=== PATIENT | male | born 1990 | race Caucasian/White ===

== ENCOUNTER 2018-03-18 17:01 | Emergency (ER) | payer BC ==
[2018-03-18 17:47] VITALS: BP 160/117; PULSE 80; TEMP 98.7; BMI 20.7
[2018-03-18] MEDS ORDERED: diphenhydrAMINE HCL 25 MG CAPSULE (FP) PO ONE (18:37)
[2018-03-18] MEDS ORDERED: diphenhydrAMINE HCL 50 MG CAPSULE ONE (18:39)
--- NOTE | 2018-03-18 18:57 | PDOC ---
History of Present Illness - General Chief Complaint: Bite Stated Complaint: BUG BITE - History of Present Illness Initial Comments: Casey Lizarraga is a 27yo man with a history of HTN, chronic kidney problems, and possible lupus presents today wtih erythema and swelling to the distal right forearm since yesterday. He reports that the swelling started yesterday, and the swelling was originally much worse. Yesterday it looked like "a golf ball" under his skin. The swelling improved focally, but today he noticed diffuse erythema and swelling on the ulnar side of his distal right forearm. He applied some hydrocortisone cream that his mom gave him, but he was worried that the redness was spreading and so came for evaluation. Casey reports that he spent the weekend sleeping in a "trailer" in [place]. He is not aware of any bug bites that occurred over the weekend, and he was not out in the [place]. He does not have any new exposures that he is aware of or new medications. He does not believe that he ever had a scratch or injury in the area. Casey denies any recent fevers, chills, headache, chest pain, palpitations, or other associated symptoms. Past History - Past Medical History Allergies/Adverse Reactions: Allergies Allergy/AdvReac Type Severity Reaction Status Date / Time banana Allergy Severe Verified 03/18/18 17:47 Home Medications: Ambulatory Orders Nifedipine [Procardia Xl] 90 mg PO DAILY 03/08/18 Triamterene/Hydrochlorothiazid [Triamterene-Hctz 37.5-25 mg Cp] 1 each PO DAILY 03/08/18 COPD: No Disorders: Yes (KIDNEY DYSFUNCTION) HTN: Yes - Suicide/Smoking/Psychosocial Hx Smoking Status: No Smoking History: Never smoked Have you smoked in the past 12 months: No Number of Cigarettes Smoked Daily: 0 Hx Alcohol Use: No Drug/Substance Use Hx: No Substance Use Type: None Hx Substance Use Treatment: No Review of Systems - Review of Systems Comments:: General: No fevers, no chills, no weight or appetite change, no malaise HEENT: No changes in vision, no changes in hearing, no congestion, no sore throat CV: No chest pain, no palpitations, no LE edema Pulm: No SOB, no cough, no wheezing GI: No nausea or vomiting, no change in bowel habits, no melena : No frequency, no urgency, no dysuria Musc: No back pain, no joint swelling, no recent injury Skin: See HPI Endo: No excessive thirst, no heat/cold intolerance Heme: No unusual bruising or bleeding, no swollen glands Neuro: No syncope, no numbness/tingling, no focal weakness Vasc: No claudication Psych: No recent change in mood, no SI or HI *Physical Exam - Vital Signs Last Vital Signs Temp Pulse Resp BP Pulse Ox 98.7 F 80 18 160/117 97 03/18/18 17:45 03/18/18 17:45 03/18/18 17:45 03/18/18 17:45 03/18/18 17:45 - Physical Exam Comments: General: Comfortable, no acute distress HEENT: PERRL, EOMI, MMM, voice normal, normal neck ROM, no LAD Cards: RRR, no murmur appreciated Pulm: Comfortable on room air, clear to auscultation bilaterally Abd: Soft, nontender, nondistended Ext: RUE with erythema and diffuse swelling on distal forearm. Nontender to palpation. Quarter sized area of induration at anterior wrist. No fluctuance. No visible puncture wound or other injury. Vasc: Extremities WWP. Palpable radial and pedal pulses bilaterally Neuro: A&Ox3, CN grossly intact, normal speech, motor/sensory grossly intact and symmetric Psych: Mood appropriate to situation ED Treatment Course - Medications Given in the ED: ED Medications Discontinued Medications Generic Name Dose Route Start Last Admin Trade Name Freq PRN Reason Stop Dose Admin Diphenhydramine HCl 50 mg 03/18/18 18:37 03/18/18 18:40 Benadryl - PO 03/18/18 18:38 50 mg ONCE ONE Administration Medical Decision Making - Medical Decision Making Casey Troy is a 27yo man with a PMH of kidney disease, HTN, possible lupus who presents with erythema, edema, pruritus, and induration to the distal right forearm since yesterday. - No fever, tenderness, warmth, discharge, or break in the skin that suggest infection - Local induration but no fluctuance that suggest fluid collection - Appearance consistent with allergic reaction, especially since the area is itchy and improved with application of cortisone. - Will give 50mg diphehydramine for itching 03/18/18 19:02 - Patient is requesting to leave; he reports that he just wanted to make sure the area was not infected - Recommend follow up with his PMD within the next week - Discussed continued use of benadryl for itching and return precautions. - Marked area of erythema; discussed with Mr Lizarraga that he needs to see his PMD if the area of erythema continues to spread Discussed with Dr Figueroa. *DC/Admit/Observation/Transfer Diagnosis at time of Disposition: Allergic reaction - Discharge Dispostion Disposition: HOME Condition at time of disposition: Good Decision to Admit order: No - Referrals - Patient Instructions Printed Discharge Instructions: DI for Atopic Dermatitis - Adult, DI for Contact Dermatitis Additional Instructions: Discharge Instrutions: - You were seen in the ED for redness and swelling to your right forearm - This is most consistent with an allergic reaction. You may wish to apply hydrocortisone ointment twice daily for itching. You may also take 25-50mg of diphenhydramine (benadryl) or another antihistamine for itching and irritation of the area - Follow up with your primary physician within the next week - Seek medical care if you have worsening of the redness, swelling, start to have pain in the area, drainage, or you have red streaks up your arm, especially if you have a fever to 101F or shaking chills. - Post Discharge Activity
--- NOTE | 2018-03-18 19:06 | PDOC ---
Attending Attestation - HPI HPI: 03/18/18 19:11 The patient is a 27 year old male with a past medical history of hypertension, lupus, and chronic kidney problems who presents to the emergency department for evaluation of anterior right forearm itching, swelling, and redness. The patient reports redness of volar aspect of distal forearm since yesterday morning. Patient describes the rash as a golf ball under his skin in the middle of his wrist which has gone down, but still has persistent itchiness. He states it was worse yesterday and has improved after applying cortisone cream this morning. Denies any associated pain. The patient notes he slept two nights in a trailer in [facility] over the weekend, and notes there was no swelling on Sunday. The patient state he is unaware of any insect bites, but it can be a possibility. Denies taking oral medication for the pain. Denies sick contact, chest pain, shortness of breath, headache, and dizziness. Denies fever, chills, and any bowel/urinary symptoms. - Physicial Exam PE: GENERAL: Well-appearing, well-nourished. No apparent distress. HEENT: No enlarged nodes. Normocephalic, atraumatic. PERRL, EOM intact. CARDIOVASCULAR: Normal S1, S2. Regular rate and rhythm. PULMONARY: Clear to auscultation bilaterally. ABDOMEN: Soft, non-distended, non-tender. EXTREMITIES: (+)Mild erythema of the volar aspect of the right wrist and distal forearm. Non tender to palpation. No induration. Minimal warmth. No extension to the elbow or axilla. Normal ROM in all four extremities. No gross deformities. SKIN: Warm, dry. No rash NEUROLOGICAL: No focal neurological deficits. - Medical Decision Making Impression Insect bite with significant local reaction. The patient is a 27 year old male with a past medical history of hypertension, lupus, and chronic kidney problems who presents to the emergency department for evaluation of volar aspect of distal right forearm itching, swelling, and redness. Plan: Cool compresses Benadryl If erythema processes, return for recheck and consider possibility for early infection. <Falguni Roberson - Last Filed: 03/18/18 19:11> - Resident Resident Name: Radha Andujar - ED Attending Attestation I have performed the following: I have examined & evaluated the patient, The case was reviewed & discussed with the resident, I agree w/resident's findings & plan, Exceptions are as noted - Medical Decision Making Patient has the suggestion of an insect bite with a pinpoint punctum surrounded by minimal erythema. There is no significant warmth or tenderness. There is no sign of infection at present. This appears to be an ALLERGIC reaction. The extent of the erythema was marked and the patient was instructed to observe for any increase in size, and return to the emergency room if it continues to enlarge, becomes more warm, red, or painful. Or if he develops any systemic symptoms such as fever, joint or muscle aches, or headache. Fully alert, in no significant pain or other distress at discharge with his family to follow-up as directed <Jeferson Figueroa - Last Filed: 03/25/18 07:25> Attestations - Attestations Documentation prepared by Falguni Roberson, acting as medical transcription for Jeferson Figueroa MD. <Falguni Roberson - Last Filed: 03/18/18 19:11>
== END 2018-03-18 19:17 | disposition home or self-care (01) ==
LOC: FER 17:01
DX: T78.40XA Allergy, unspecified, initial encounter (principal); I10 Essential (primary) hypertension
CPT/HCPCS: 99281-25

== ENCOUNTER 2018-05-02 00:42 | Emergency (ER) | payer BC ==
[2018-05-02 00:48] VITALS: BMI 22.5
--- NOTE | 2018-05-02 02:06 | PDOC ---
History of Present Illness - General Chief Complaint: Edema Stated Complaint: GROIN SWELLING Time Seen by Provider: 05/02/18 01:48 History Source: Patient - History of Present Illness Initial Comments: 05/02/18 03:20 27 year old male with left testicular pain and swelling x 1 week. patient reports that he had a sexual encounter with his ex girlfriend 2 weeks ago unsure of exposure to STDs. PMHX: Hypertension, Lupus? Past History - Past Medical History Allergies/Adverse Reactions: Allergies Allergy/AdvReac Type Severity Reaction Status Date / Time banana Allergy Severe Verified 05/02/18 02:21 Home Medications: Ambulatory Orders Nifedipine [Procardia Xl] 90 mg PO DAILY 03/08/18 Triamterene/Hydrochlorothiazid [Triamterene-Hctz 37.5-25 mg Cp] 1 each PO DAILY 03/08/18 Doxycycline Monohydrate [Mondoxyne Nl] 100 mg PO BID #14 capsule 05/02/18 COPD: No Disorders: Yes (KIDNEY DYSFUNCTION) HTN: Yes - Suicide/Smoking/Psychosocial Hx Smoking Status: No Smoking History: Never smoked Have you smoked in the past 12 months: No Number of Cigarettes Smoked Daily: 0 Hx Alcohol Use: No Drug/Substance Use Hx: No Substance Use Type: None Hx Substance Use Treatment: No Review of Systems - Review of Systems Able to Perform ROS?: Yes Is the patient limited Macedonian proficient: No : Yes: Testicular Swelling, Testicular Pain *Physical Exam - Vital Signs Last Vital Signs Temp Pulse Resp BP Pulse Ox 98.4 F 80 18 195/140 H 98 05/02/18 00:44 05/02/18 00:44 05/02/18 00:44 05/02/18 00:44 05/02/18 00:44 - Physical Exam General Appearance: Yes: Appropriately Dressed Male Genitalia: positive: testicular tenderness (left, slight left testicular edema.) Integumentary: positive: Normal Color, Dry, Warm Neurologic: positive: Fully Oriented, Alert, Normal Mood/Affect *DC/Admit/Observation/Transfer Diagnosis at time of Disposition: Acute epididymitis - Discharge Dispostion Disposition: HOME Condition at time of disposition: Fair - Prescriptions Prescriptions: Doxycycline Monohydrate [Mondoxyne Nl] 100 mg PO BID #14 capsule - Referrals Referrals: Tima Brown MD., [Staff Physician] - Call tomorrow - Patient Instructions Printed Discharge Instructions: DI for Epididymitis Additional Instructions: take doxycycline as prescribed, drink plenty of fluids follow up with a urologist as soon as possible. - Post Discharge Activity Forms/Work/School Notes: Back to Work
[2018-05-02 02:22] VITALS: BP 195/96; PULSE 85; TEMP 98.2
[2018-05-02] MEDS ORDERED: AZITHROMYCIN 1 GM PACKET PO ONE (02:49)
[2018-05-02] MEDS ORDERED: AZITHROMYCIN 250 MG TABLET PO ONE ×2 (03:00)
[2018-05-02 03:07] LABS: URINE APPEARANCE CLEAR; URINE BILIRUBIN NEGATIVE (<2.0 mg/dL); URINE COLOR COLORLESS; URINE GLUCOSE (UA) NEGATIVE (NEGATIVE); URINE KETONE NEGATIVE (NEGATIVE); URINE LEUK ESTERASE NEGATIVE (NEGATIVE); URINE NITRITE NEGATIVE (NEGATIVE); URINE PROTEIN 2+ (NEGATIVE); URINE UROBILINOGEN NEGATIVE mg/dL (0.2-1.0)
[2018-05-02 03:10] LABS: URINE MUCUS RARE
[2018-05-02] MEDS ORDERED: AZITHROMYCIN 250 MG TABLET ONE (03:21)
[2018-05-02] MEDS ORDERED: cefTRIAXone SODIUM 1 GM VIAL ONE (03:21)
== END 2018-05-02 03:50 | disposition home or self-care (01) ==
LOC: JER 00:42
DX: N45.1 Epididymitis (principal); I10 Essential (primary) hypertension
CPT/HCPCS: 36415; 76870-TC; 81003; 81015; 87086; 87491; 87591; 99281-25

== ENCOUNTER 2018-05-23 14:59 | Inpatient (IN) | payer BC ==
--- NOTE | 2018-05-23 15:11 | PDOC ---
Rapid Medical Evaluation Chief Complaint: Blood Pressure Problem Time Seen by Provider: 05/23/18 15:07 Medical Evaluation: Allergies Allergy/AdvReac Type Severity Reaction Status Date / Time banana Allergy Severe Verified 05/02/18 02:21 05/23/18 15:07 I have performed a brief in person evaluation of this patient. The patient presents with a CC of: "My doctor wanted me to come here because of my blood pressure." HPI: Pt states he has a hx of HTN and is on a CCB. He states that he has not been taking his medication on a regular basis. At present he denies symptoms however admits over the past month of occasional HAs. Pain 0/10. PE: Skin: clear Lungs: Clear Heart: RRR Abd: No pain upon palpation MS: Moves all extremities without difficulty. Psych: Age appropriate. I have ordered the following: nothing at this time. The patient will proceed to the ED for further evaluation. Discharge Disposition - Diagnosis Hypertension Qualifiers: Hypertension type: unspecified Qualified Code(s): I10 - Essential (primary) hypertension - Referrals - Patient Instructions - Post Discharge Activity
--- NOTE | 2018-05-23 15:21 | PDOC ---
History of Present Illness - General Chief Complaint: Blood Pressure Problem Stated Complaint: SENT BY PCP Time Seen by Provider: 05/23/18 15:07 - History of Present Illness Initial Comments: The patient is a 27M w/ a history of lupus and raynaud's who presents for evaluation of HTN from Dr. Caldera's office. The patient reportedly takes Nifedipine 90mg PO daily for HTN, however, it is generally uncontrolled per the patient. He also admits to intermittent non-compliance. The patient endorses an associated BRADFORD, however he endorses intermittent BRADFORD for 1 month. This BRADFORD feels similar to previous. He denies recent fevers/chills, chest pain, SOB, abdominal pain, back pain, or changes in vision or sensation. Cardiology: Dr. Caldera 05/23/18 15:20 Past History - Past Medical History Allergies/Adverse Reactions: Allergies Allergy/AdvReac Type Severity Reaction Status Date / Time banana Allergy Severe Verified 05/23/18 15:08 Home Medications: Ambulatory Orders Nifedipine [Procardia Xl] 90 mg PO DAILY 03/08/18 COPD: No CHF: No DVT: No Disorders: Yes (KIDNEY DYSFUNCTION) HTN: Yes - Suicide/Smoking/Psychosocial Hx Smoking Status: No Smoking History: Never smoked Have you smoked in the past 12 months: No Number of Cigarettes Smoked Daily: 0 Information on smoking cessation initiated: No Hx Alcohol Use: No Drug/Substance Use Hx: No Substance Use Type: None Hx Substance Use Treatment: No Review of Systems - Review of Systems Able to Perform ROS?: Yes Comments:: GENERAL/CONSTITUTIONAL: No fever or chills. No weakness HEAD, EYES, EARS, NOSE AND THROAT: No change in vision. No ear pain or discharge. No sore throat CARDIOVASCULAR: No chest pain or shortness of breath RESPIRATORY: No cough, wheezing, or hemoptysis GASTROINTESTINAL: No nausea, vomiting, diarrhea or constipation._ GENITOURINARY: No dysuria, frequency, or change in urination._ MUSCULOSKELETAL: No joint or muscle swelling or pain. No neck or back pain._ SKIN: No rash_ NEUROLOGIC: No headache, vertigo, loss of consciousness, or change in strength/ sensation._ ENDOCRINE: No increased thirst. No abnormal weight change_ HEMATOLOGIC/LYMPHATIC: No anemia, easy bleeding, or history of blood clots._ ALLERGIC/IMMUNOLOGIC: No hives or skin allergy._ 05/23/18 15:21 05/23/18 16:01 Is the patient limited Spanish proficient: No *Physical Exam - Vital Signs Last Vital Signs Temp Pulse Resp BP Pulse Ox 98.1 F 84 16 192/126 H 99 05/23/18 15:08 05/23/18 15:08 05/23/18 15:08 05/23/18 15:08 05/23/18 15:08 - Physical Exam Comments: GENERAL: Awake, alert, and fully oriented, in no acute distress HEAD: No signs of trauma, normocephalic, atraumatic EYES: PERRLA, EOMI, sclera anicteric, conjunctiva clear ENT: Hearing grossly normal, nares patent, oropharynx clear without exudates. Moist mucosa LUNGS: No distress, speaks full sentences, clear to auscultation bilaterally HEART: Regular rate and rhythm, normal S1 and S2, no murmurs, rubs or gallops, peripheral pulses normal and equal bilaterally ABDOMEN: Soft, nontender, normoactive bowel sounds. No guarding, no rebound EXTREMITIES : Normal inspection, Normal range of motion, no edema. No clubbing or cyanosis NEUROLOGICAL: Cranial nerves II through XII grossly intact. Normal speech, normal gait, no focal sensorimotor deficits SKIN: Warm, Dry, normal turgor, no rashes or lesions noted 05/23/18 15:21 ED Treatment Course - LABORATORY CBC & Chemistry Diagram: 05/23/18 16:01 05/23/18 16:01 Medical Decision Making - Medical Decision Making The patient is a 27M who presents from clinic for evaluation of hypertensive urgency Patient on Nifedipine 90mg PO daily for HTN Cardiology: Dr. Caldear CMP, CBC, Cardiac profile, UA ECG CXR Hydralazine 10mg IV once for HTN 05/23/18 15:21 Hydralazine 10mg IV once for HTN BP 180s/140s Cr 4.0 (from 1s in November) Cardiology and Nephrology consulted -Will initiate Nitro gtt for HTN and f/u w/ Dr. Caldera in an hour Plan for admission ICU v Tele -ICU w/o beds at this time w/ 4 pending 05/23/18 17:22 Initial MAP 165, Goal MAP 123 Nitro gtt at 6mcg/min, MAP 133 Dispo: Admit to tele 05/23/18 18:38 *DC/Admit/Observation/Transfer Diagnosis at time of Disposition: Hypertensive crisis Hypertension Qualifiers: Hypertension type: unspecified Qualified Code(s): I10 - Essential (primary) hypertension Raynaud phenomenon Qualifiers: Raynaud?s-associated gangrene presence: without gangrene Qualified Code(s): I73.00 - Raynaud's syndrome without gangrene SLE (systemic lupus erythematosus) Qualifiers: Systemic lupus erythematosus type: unspecified Systemic lupus erythematosus organ involvement: unspecified Qualified Code(s): M32.9 - Systemic lupus erythematosus, unspecified - Discharge Dispostion Condition at time of disposition: Guarded Decision to Admit order: Yes - Referrals - Patient Instructions - Post Discharge Activity
[2018-05-23] MEDS ORDERED: hydrALAZINE HCL 20 MG/ML VIAL IVPUSH ONE ×3 (16:01→16:45)
[2018-05-23 16:14] LABS: BASO % 0.8 % (0-2.0); HEMATOCRIT 39.1 % (35.4-49); HEMOGLOBIN 13.2 GM/dL (11.7-16.9); LYMPH % 16.2 % (8-40); MCH 29.2 pg (25.7-33.7); MCHC 33.9 g/dl (32.0-35.9); MEAN CELL VOLUME 86.2 fl (80-96); MEAN PLT VOLUME 9.1 fl (7.5-11.1); MONO % 7.2 % (3.8-10.2); NEUT % 66.8 % (42.8-82.8); PLATELET COUNT 225 K/MM3 (134-434); RBC 4.54 M/mm3 (4.00-5.60); RDW 14.3 % (11.9-15.9); WHITE BLOOD COUNT 7.9 K/mm3 (4.0-10.0)
[2018-05-23] MEDS ORDERED: hydrALAZINE HCL 20 MG/ML VIAL ONE ×2 (16:24→16:43)
--- NOTE | 2018-05-23 16:38 | CON.CARD ---
Cardiology Consult (text) - Consultation Consultation Note: Cardiology Clinical summary Mr. Lizarraga was seen today in office for an initial CV evaluation. Pertinent PMHX : Possible SLE, CKD s/p biopsy at [facility] (non-diagostic), Chronic HTN w/ medication non-adherence and Raynaud's phenomenon. Came to office with several issues includin. Severely uncontrolled HTN for about one week with home readings 170-180/120 2. Posterior headaches daily for about one month 3. A Transient episode of substernal chest pain/ sharp that lasted a few seconds yesterday with no radiation or associated sx 4. Sharp right leg pain for 2 weeks. His history of CKD and chronic HTN was confirmed by his fare enforcement officer, Dr. Wilson who confirmed his last creatinine in November was around 1.6. His medications should be: Losartan 50mg (not taking), Nifedipine ER 90mg ( taking sometimes) and Diazide- unknown dose (not taking). His ECG showed NSR with LVH and strain pattern. His physical exam was sig for BP 170/120 b/l I referred him to ER for further w/u and Rx hypertensive urgency. Plan: 1. Stat labs for renal fxn 2. Echo 3. Cardiac enzymes 4. Telemetry 5. BP control 6. Renal consult
--- NOTE | 2018-05-23 16:46 | PDOC ---
Attending Attestation - Resident Resident Name: Jonathan Bhakta - ED Attending Attestation I have performed the following: I have examined & evaluated the patient, The case was reviewed & discussed with the resident, I agree w/resident's findings & plan, Exceptions are as noted - HPI HPI: 05/23/18 17:12 Casey is a 27 yo M who presents to the ER from Dr Caldera's office Briefly, he has a h/o Lupus, Renal Insufficiency, Raynauds, HTN on Procardia and Losartan Pt has had severely uncontrolled HTN for approximately 1 week (180s/120s), headaches (daily, he awakens with headaches daily), Chest Pain which he describes as sharp, no radiation, no diaphoresis or nausea, lasting a few seconds and self resolving - Physicial Exam PE: 05/23/18 17:11 GENERAL: Pt is A &O x 3, no distress LUNGS: Clear to auscultation bilaterally, no wheezes, rales or rhonchi. HEART: Regular rate and rhythm without murmurs, rubs or gallops. ABDOMEN: Normoactive bowel sounds, soft, nontender, no masses, no rebound, no guarding. NEUROLOGICAL: Normal motor function, normal sensation. - Critical Care Time Total Critical Care Time: 60 Critical Care Statement: The care of this patient involved high complexity decision making to prevent further life threatening deterioration of the patient 's condition and/or to evaluate & treat vital organ system(s) failure or risk of failure. - Medical Decision Making 05/23/18 16:59 27 yo M hypertensive urgency EKG: SR rate of 73 bpm, axis nml, intervals abn - pr: 138ms, QRS:98ms, QTc: 506ms (prolonged), No st elevation or depression, t wave inversions noted inferiorly and laterally (similar to prior EKG) Laboratory Tests 03/08/18 03/08/18 05/23/18 20:00 20:00 16:00 WBC 11.5 H Hgb 13.5 Hct 40.2 Plt Count 353 Sodium 133 L Potassium 3.1 L Chloride 98 Carbon Dioxide 26 Anion Gap 9 BUN 39 H Creatinine 2.6 H Random Glucose 90 Creatine Kinase Troponin I Urine Blood 1+ H Urine Nitrite Negative Ur Leukocyte Esterase Negative 05/23/18 05/23/18 16:01 16:01 WBC 7.9 Hgb 13.2 Hct 39.1 Plt Count 225 D Sodium 138 Potassium 3.7 Chloride 99 Carbon Dioxide 29 Anion Gap 10 BUN 41 H Creatinine 4.0 H Random Glucose 86 Creatine Kinase 716 H Troponin I 0.13 H Urine Blood Urine Nitrite Ur Leukocyte Esterase 05/23/18 17:00 Labs reveal: Acute kidney injury Demand ischemia, elevated trop Mild leukocytosis Will admit Will start nitro drip Will give ASA 05/23/18 17:18
[2018-05-23 16:47] LABS: URINE APPEARANCE CLEAR; URINE BILIRUBIN NEGATIVE (<2.0 mg/dL); URINE COLOR LTYELLOW; URINE GLUCOSE (UA) NEGATIVE (NEGATIVE); URINE KETONE NEGATIVE (NEGATIVE); URINE LEUK ESTERASE NEGATIVE (NEGATIVE); URINE NITRITE NEGATIVE (NEGATIVE); URINE PROTEIN 3+ (NEGATIVE); URINE UROBILINOGEN NEGATIVE mg/dL (0.2-1.0)
[2018-05-23 16:56] LABS: ALBUMIN 3.5 g/dl (3.4-5.0); ALK PHOS 97 U/L (45-117); ANION GAP 10 MMOL/L (8-16); BILIRUBIN,TOTAL 0.4 mg/dL (0.2-1); BLOOD UREA NITROGEN 41 mg/dL (7-18); CALCIUM 8.7 mg/dL (8.5-10.1); CHLORIDE 99 mmol/L (98-107); CO2 29 mmol/L (21-32); GLUCOSE,RANDOM 86 mg/dL (74-106); POTASSIUM 3.7 mmol/L (3.5-5.1); SGOT/AST 41 U/L (15-37); SGPT/ALT 29 U/L (13-61); SODIUM 138 mmol/L (136-145); TOT PROT 7.7 g/dl (6.4-8.2)
[2018-05-23] MEDS ORDERED: NITROGLYCERIN 25MG/D5W 250ML 25 MG/250 ML ML IVPB ONE (17:07)
[2018-05-23] MEDS ORDERED: NITROGLYCERIN 25MG/D5W 250ML 25 MG/250 ML ML IVPB SCH (17:15)
[2018-05-23] MEDS ORDERED: ACETAMINOPHEN 325 MG TABLET (FP) PO ONE (17:22)
[2018-05-23] MEDS ORDERED: ACETAMINOPHEN 325 MG TABLET (FP) ONE (17:22)
[2018-05-23 17:48] LABS: EPI CELLS RARE /HPF (FEW); URINE HYALINE CAST 1 /lpf; URINE MUCUS RARE
--- NOTE | 2018-05-23 18:25 | HP ---
CHIEF COMPLAINT: Elevated blood pressure PCP: Dr. Gutierrez Catheter Finisher And Inspector: Dr. Wilson HISTORY OF PRESENT ILLNESS: 27 year old male with a PMH significant for Lupus, Raynaud Syndrome, CKD and HTN presented to the ED with elevated blood pressure. He was sent by his instructional coach Dr. Caldera when his BP was 170/120 at his initial CV evaluation today. Patient reports he has had a persistent headache concentrated in the back of his head which radiates down his neck for the past several months which got progressively worse, especially over the past week. He has had sharp, shooting pain down his right leg. He feels flushed, dizzy, blurry vision at times and sometimes his heart hurts. He reports tiring easily even when is not exerting himself. He regularly checks his BP at home and says for the past week his readings have as high as 180s/120. He was diagnosed with HTN approximately 2 years ago and was hospitalized a [facility] he was given a full cardiac and renal work up. He was referred to [facility] for a renal biopsy which was not diagnostic. Patient reports he is non-compliant with his medications when his BP is running high and he feels they are not working. He did not take the diuretic he was prescribed because he felt he was urinating frequently already. Is only current medication he is supposed to take which he is not is Nifedipine ER 90 mg. Upon admission to the ED his BP was 192/126 he was given Hydralazine 10 mg IVP x 2 with little effect. BP 192/126 -> 193/151 -> 185/115 ->182/109. He was started on a Nitro drip. Labs significant for Cr of 4, he was at 1.6 at his nephrology appointment in November. Trop #1 0.13, Cr Kinase 716 Recent Travel: No PAST MEDICAL HISTORY: Raynaud Syndrome Lupus HTN PAST SURGICAL HISTORY: Renal biopsy 2016 Social History: Works as a high school foreign language tutor Smoking: Current everyday marijuana smoker Alcohol: Socially Drugs: Denies Family History: Father: Hypertension Maternal Grandfather: Diabetes Allergies banana Allergy (Severe, Verified 05/23/18 15:08) HOME MEDICATIONS: Home Medications Medication Instructions Recorded Nifedipine [Procardia Xl] 90 mg PO DAILY 03/08/18 REVIEW OF SYSTEMS CONSTITUTIONAL: Absent: fever, chills, diaphoresis, generalized weakness, malaise, loss of appetite, weight change HEENT: (+) Intermittent blurry vision Absent: rhinorrhea, nasal congestion, throat pain, throat swelling, difficulty swallowing, mouth swelling, ear pain, eye pain CARDIOVASCULAR: (+) Intermittent chest pain, lighteadedness Absent: syncope, palpitations, irregular heart rate, peripheral edema RESPIRATORY: Absent: cough, shortness of breath, dyspnea with exertion, orthopnea, wheezing, stridor, hemoptysis GASTROINTESTINAL: Absent: abdominal pain, abdominal distension, nausea, vomiting, diarrhea, constipation, melena, hematochezia GENITOURINARY: (+) Frequency Absent: dysuria, urgency, hesitancy, hematuria, flank pain, genital pain MUSCULOSKELETAL: Absent: myalgia, arthralgia, joint swelling, back pain, neck pain SKIN: (+) rash to face Absent: rash, itching, pallor HEMATOLOGIC/IMMUNOLOGIC: Absent: easy bleeding, easy bruising, lymphadenopathy, frequent infections ENDOCRINE: Absent: unexplained weight gain, unexplained weight loss, heat intolerance, cold intolerance NEUROLOGIC: (+) Headache Absent: focal weakness or paresthesias, dizziness, unsteady gait, seizure, mental status changes, bladder or bowel incontinence PSYCHIATRIC: Absent: anxiety, depression, suicidal or homicidal ideation, hallucinations. PHYSICAL EXAMINATION Vital Signs - 24 hr 05/23/18 05/23/18 05/23/18 15:08 16:45 17:31 Temperature 98.1 F Pulse Rate 84 Pulse Rate [ 88 94 H Apical] Respiratory 16 16 14 Rate Blood Pressure 192/126 H Blood Pressure 193/151 H 185/115 H [Right Arm] O2 Sat by Pulse 99 99 100 Oximetry (%) GENERAL: Awake, alert, and fully oriented, in no acute distress, mother present HEAD: Normal with no signs of trauma. EYES: Conjunctiva moderately injected, pupils equal, round and reactive to light , extraocular movements intact, sclera anicteric, no lid lag. EARS, NOSE, THROAT: nares patent, oropharynx clear without exudates. Moist mucous membranes. NECK: Normal range of motion, supple without lymphadenopathy, JVD, or masses. LUNGS: Breath sounds equal, clear to auscultation bilaterally. No wheezes, and no crackles. No accessory muscle use. HEART: Rapid rate and regular rhythm, normal S1 and S2 without murmur, rub or gallop. ABDOMEN: Soft, nontender, not distended, normoactive bowel sounds, no guarding, no rebound, no masses. No hepatomegaly or splenomegaly. MUSCULOSKELETAL: Normal range of motion at all joints. No bony deformities or tenderness. No CVA tenderness. UPPER EXTREMITIES: 2+ pulses, warm, well-perfused. No cyanosis. No clubbing. No peripheral edema. LOWER EXTREMITIES: 2+ pulses, warm, well-perfused. No calf tenderness. No peripheral edema. NEUROLOGICAL: No facial droop, tongue midline, normal speech PSYCHIATRIC: Cooperative. Good eye contact. Appropriate mood and affect. SKIN: Diffuse, generalized erythematous flaky skin to face, otherwise warm, dry , normal turgor, no rashes or lesions noted, normal capillary refill. Laboratory Results - last 24 hr 05/23/18 05/23/18 05/23/18 16:00 16:01 16:01 WBC 7.9 RBC 4.54 Hgb 13.2 Hct 39.1 MCV 86.2 MCH 29.2 MCHC 33.9 RDW 14.3 Plt Count 225 D MPV 9.1 Absolute Neuts (auto) 5.2 Neutrophils % 66.8 Lymphocytes % 16.2 Monocytes % 7.2 Eosinophils % 9.0 H Basophils % 0.8 Nucleated RBC % 0 Sodium 138 Potassium 3.7 Chloride 99 Carbon Dioxide 29 Anion Gap 10 BUN 41 H Creatinine 4.0 H Creat Clearance w eGFR 18.24 Random Glucose 86 Calcium 8.7 Total Bilirubin 0.4 AST 41 H ALT 29 Alkaline Phosphatase 97 Creatine Kinase 716 H Creatine Kinase Index 0.7 CK-MB (CK-2) 5.4 H Troponin I 0.13 H Total Protein 7.7 Albumin 3.5 Urine Color Ltyellow Urine Appearance Clear Urine pH 6.0 Ur Specific [place] 1.013 Urine Protein 3+ H Urine Glucose (UA) Negative Urine Ketones Negative Urine Blood 1+ H Urine Nitrite Negative Urine Bilirubin Negative Urine Urobilinogen Negative Ur Leukocyte Esterase Negative Urine WBC (Auto) 3 Urine RBC (Auto) 2 Ur Epithelial Cells Rare Hyaline Casts 1 Urine Mucus Rare EKG: SR rate of 73 bpm, QTc: 506ms (prolonged) No st elevation or depression t wave inversions noted inferiorly and laterally (similar to prior EKG) LVH and strain pattern. CXR Unremarkable for acute process ASSESSMENT/PLAN: 27 year old male with a PMH significant for Lupus, Raynaud Syndrome, CKD and HTN presented to the ED with elevated blood pressure. He was admitted to the telemetry floor for HTN management, cardiac and renal workup. HTN Urgency -Started on Nitroglycerin drip at 7mcg/min -Continue home Procardia 90 mg -Seen by instructional coach Dr. Caldera -Echo pending -Trop #1 0.13, #2 and #3 pending -Telemetry monitoring CKD -Cr 4.0, 1.6 in November -s/p biopsy at [facility] (non-diagostic) 2015 -Renal diet -Renal consult ordered FEN -PO intake adequate -Replete electrolytes as indicated -Renal diet DVT Prophylaxis -SCD's. Dispo: pt currently requires further inpatient care. FULL CODE Visit type - Emergency Visit Emergency Visit: Yes ED Registration Date: 05/23/18 Care time: The patient presented to the Emergency Department on the above date and was hospitalized for further evaluation of their emergent condition. - New Patient This patient is new to me today: Yes Date on this admission: 05/23/18 - Critical Care Critical Care patient: No
[2018-05-23] MEDS ORDERED: morphine CARPU-JECT 4 MG/1 ML DISP.SYRIN IVPUSH ONE (20:04)
[2018-05-23] MEDS ORDERED: morphine SULFATE 4 MG/ML VIAL ONE (20:05)
[2018-05-23] MEDS ORDERED: LABETALOL HCL 5 MG/1 ML (100MG/20 ML VIAL) IVPUSH ONE (21:26)
[2018-05-23] MEDS ORDERED: LABETALOL HCL 5 MG/1 ML (200MG/40ML VIAL) IVPB ONE (21:37)
[2018-05-24] MEDS ORDERED: NIFEdipine E.R. 30 MG TABLET (FP) ONE ×2 (08:32→09:27)
[2018-05-24] MEDS ORDERED: LABETALOL HCL 5 MG/1 ML (200MG/40ML VIAL) IVPB ONE (09:26)
[2018-05-24] MEDS ORDERED: LABETALOL HCL 5 MG/1 ML (100MG/20 ML VIAL) IVPUSH ONE (09:26)
[2018-05-24] MEDS ORDERED: hydrALAZINE HCL 20 MG/ML VIAL IVPUSH ONE (09:34)
--- NOTE | 2018-05-24 09:37 | PN ---
Progress Note, Physician Chief Complaint: Seen and examined. Non contrast chest CT with mild aortic root dilatation, no change from 2016 Creat now 4! Denies chest pain or headache this AM TELE: ADOLFOR TnI trend flat Has been on IV nitro gtts overnight with mild improvement. Was given 1 dose of IV Labetalol last night which did not trigger Raynaud's - Current Medication List Current Medications: Active Medications Hydralazine HCl (Apresoline Injection -) 10 mg IVPUSH ONCE ONE Stop: 05/24/18 09:35 Nitroglycerin/Dextrose (Nitroglycerin 25mg/D5w 250ml) 25 mg in 250 mls @ 6 mls/ hr IVPB TITR TRES Last Titration: 05/24/18 07:10 Dose: 6.66 mcg/min, 4 mls/hr Nifedipine (Procardia Xl -) 90 mg PO DAILY [facility] Last Admin: 05/24/18 09:33 Dose: 90 mg - Objective Vital Signs: Vital Signs Temperature 98.5 F 05/24/18 01:14 Pulse Rate 72 05/24/18 09:33 Respiratory Rate 99 H 05/24/18 09:33 Blood Pressure 164/108 H 05/24/18 09:33 O2 Sat by Pulse Oximetry (%) 100 05/24/18 09:08 Constitutional: Yes: No Distress Cardiovascular: Yes: Regular Rate and Rhythm, Other (+ S4) Respiratory: Yes: CTA Bilaterally Gastrointestinal: Yes: Soft Edema: No Neurological: Yes: Alert, Oriented ...Motor Strength: WNL Labs: CBC, BMP 05/23/18 16:01 05/23/18 16:01 Laboratory Tests 05/23/18 05/23/18 05/24/18 16:01 23:19 09:05 Creatine Kinase 716 H 513 H Pending Troponin I 0.13 H 0.16 H Pending Assessment/Plan IMP: Acute renal failure Hypertensive urgency Small, stable ascending aortic aneurysm 4.0cm Raynaud's Phenomenon Hypercoag state Possible autoimmune disease REC: 1. Continue Nifedipine ER 90mg Daily 2. Tolerated IV Labetalol: Will start PO Labetalol 50mg TID and follow BP closely 3. Titrate Nitro down if possible. 4. Echo 5. Repeat BMP 6. Renal consult 7. Telemetry
[2018-05-24] MEDS ORDERED: LABETALOL HCL 100 MG TABLET (FP) PO SCH ×2 (09:45→10:09)
[2018-05-24] MEDS ORDERED: LABETALOL HCL 100 MG TABLET (FP) ONE (09:55)
[2018-05-24] MEDS ORDERED: NIFEdipine E.R. 30 MG TABLET (FP) PO SCH (10:00)
[2018-05-24] MEDS ORDERED: ACETAMINOPHEN 325 MG TABLET (FP) ONE (10:30)
[2018-05-24] MEDS ORDERED: ACETAMINOPHEN 325 MG TABLET (FP) PO ONE (10:30)
--- NOTE | 2018-05-24 10:32 | PN ---
Progress Note, Physician Chief Complaint: patient seen in ER complaining of slight headache on iv nitroglycerin last night got iv labetolol - Current Medication List Current Medications: Active Medications Nitroglycerin/Dextrose (Nitroglycerin 25mg/D5w 250ml) 25 mg in 250 mls @ 6 mls/ hr IVPB TITR TRES Last Titration: 05/24/18 07:10 Dose: 6.66 mcg/min, 4 mls/hr Labetalol HCl (Normodyne -) 50 mg PO TID TRES Nifedipine (Procardia Xl -) 90 mg PO DAILY TRES Last Admin: 05/24/18 09:33 Dose: 90 mg - Objective Vital Signs: Vital Signs Temperature 98.5 F 05/24/18 01:14 Pulse Rate 70 05/24/18 09:59 Respiratory Rate 18 05/24/18 09:59 Blood Pressure 175/125 H 05/24/18 09:59 O2 Sat by Pulse Oximetry (%) 99 05/24/18 09:59 Constitutional: Yes: Calm Cardiovascular: Yes: Regular Rate and Rhythm, S1, S2 Respiratory: Yes: CTA Bilaterally Gastrointestinal: Yes: Normal Bowel Sounds, Soft Edema: No Neurological: Yes: Alert, Oriented Labs: CBC, BMP 05/23/18 16:01 Problem List - Problems (1) Hypertensive emergency Assessment/Plan: cardiac monitiring- monitor BP iv nitroglycerin drip got procardia today got labetolol as well- labetolol TID CK and trop trending down non contrast CT with mild aortic root dilatation echo to look at pulm arterial pressures Code(s): I10 - ESSENTIAL (PRIMARY) HYPERTENSION (2) CKD (chronic kidney disease) Assessment/Plan: cr inc 2.7 to 4.0 renal consult Code(s): N18.9 - CHRONIC KIDNEY DISEASE, UNSPECIFIED
--- NOTE | 2018-05-24 10:52 | EKG ---
Test Reason : Blood Pressure : / mmHG Vent. Rate : 073 BPM Atrial Rate : 073 BPM P-R Int : 138 ms QRS Dur : 098 ms QT Int : 460 ms P-R-T Axes : 044 052 -87 degrees QTc Int : 506 ms NORMAL SINUS RHYTHM POSSIBLE LEFT ATRIAL ENLARGEMENT LEFT VENTRICULAR HYPERTROPHY NONSPECIFIC ST ABNORMALITY PROLONGED QT ABNORMAL ECG WHEN COMPARED WITH ECG OF 10-JUN-2016 13:54, NO SIGNIFICANT CHANGE WAS FOUND Confirmed by DEYANIRA COPPOLA MD ([id number]) on 05/24/2018 10:51:29 AM Referred By: Confirmed By:DEYANIRA COPPOLA MD
[2018-05-24 10:56] LABS: ANION GAP 16 MMOL/L (8-16); BLOOD UREA NITROGEN 42 mg/dL (7-18); CHLORIDE 99 mmol/L (98-107); CO2 23 mmol/L (21-32); CREATININE 3.9 mg/dL (0.55-1.3); GLUCOSE,RANDOM 98 mg/dL (74-106); MAGNESIUM 2.7 mg/dL (1.8-2.4); POTASSIUM 3.4 mmol/L (3.5-5.1); SODIUM 138 mmol/L (136-145)
--- NOTE | 2018-05-24 11:04 | ECHO ---
Name: LAUREEN RICE Exam:Adult Echocardiogram Study Date: 05/24/2018 08:35 AM Age: 27 yrs Reason For Study: HTN CHEST PAIN Height: 77 in Weight: 190 lb BSA: 2.2 m2 MMode/2D Measurements & Calculations IVSd: 1.3 cm LA dimension: 3.9 cm LVIDd: 5.8 cm LVIDs: 3.3 cm LVPWd: 1.3 cm LVPWs: 2.7 cm EDV(Teich): 167.0 ml ESV(Teich): 43.2 ml LVOT diam: 2.1 cm Doppler Measurements & Calculations MV E max moses: 56.8 cm/sec Ao V2 max: 116.7 cm/sec MV A max moses: 77.0 cm/sec Ao max P.5 mmHg MV E/A: 0.74 MV dec time: 0.12 sec JAMIN(V,D): 2.4 cm2 LV V1 max P.6 mmHg MR max moses: 260.6 cm/sec LV V1 max: 80.9 cm/sec MR max P.2 mmHg PA V2 max: 107.2 cm/sec Med Peak E' Moses: 3.6 cm/sec PA max P.6 mmHg Med E/e': 15.7 Lat Peak E' Moses: 4.5 cm/sec Lat E/e': 12.6 Left Ventricle The left ventricle is mildly dilated. There is mild concentric left ventricular hypertrophy. Ejection Fraction = 50-55%. The transmitral spectral Doppler flow pattern is suggestive of impaired LV relaxation. Right Ventricle The right ventricle is normal in size and function. Atria The left atrium is mildly dilated. Right atrial size is normal. Mitral Valve The mitral valve is normal in structure and function. There is no mitral valve stenosis. There is tra ce mitral regurgitation. Tricuspid Valve The tricuspid valve is normal in structure and function. There is Trace to mild tricuspid regurgitati on. Aortic Valve The aortic valve is trileaflet. No hemodynamically significant valvular aortic stenosis. No aortic regurgitation is present. Pulmonic Valve The pulmonic valve is not well seen, but is grossly normal. There is no pulmonic valvular stenosis. T here is no pulmonic valvular regurgitation. Great Vessels Mild aortic root dilatation. Pericardium/Pleura There is no pericardial effusion. Interpretation Summary The left ventricle is mildly dilated. There is mild concentric left ventricular hypertrophy. Ejection Fraction = 50-55%. The transmitral spectral Doppler flow pattern is suggestive of impaired LV relaxation. The right ventricle is normal in size and function. The left atrium is mildly dilated. There is trace mitral regurgitation. There is Trace to mild tricuspid regurgitation. Mild aortic root dilatation. MD Smith *[place] 05/24/2018 11:03 AM
[2018-05-24] MEDS ORDERED: LABETALOL HCL INJECTION 1,000 MG in DEXTROSE 5%-WATER - 800 ML IV SCH (11:15)
--- NOTE | 2018-05-24 11:38 | CONSULT ---
Consultation: CONSULT REQUEST: Nephrology Resident Note HISTORY OF PRESENT ILLNESS: 27yo M with significant history of Lupus, HTN, and CKD (unknown staging) who presents to the ER due to elevated BP and a headache. He was sent after his routine cardiology visit by Dr. Caldera for a BP of 170/120 with peak home readings of 180/120. We were asked to medically evaluate this pt due to an acute kidney dysfunction found during his ER workup. He states about 2 years ago he received a renal biopsy at [place] for suspected lupus nephritis, however the reports were "nondiagnostic." In addition he reports having HTN for the past 2 years where he has only been taking Procardia. Currently he continues to have a headache, however lessened in intensity and has been put on a nitro gtt due to difficult to control HTN during his hospital course. Denies any shortness of breath, visual changes, palpitations, CP/discomfort. 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 FamHx: HTN - Father DM - Grandfather Allergies: No medications; bananas REVIEW OF SYSTEMS: CONSTITUTIONAL: Absent: fever, chills, diaphoresis, generalized weakness, malaise, loss of appetite, weight change HEENT: Absent: rhinorrhea, difficulty swallowing, ear pain, eye pain, visual changes CARDIOVASCULAR: Absent: chest pain, syncope, palpitations, irregular heart rate, lightheadedness , peripheral edema RESPIRATORY: Absent: cough, shortness of breath, dyspnea with exertion, orthopnea, wheezing, stridor GASTROINTESTINAL: Absent: abdominal pain, abdominal distension, nausea, vomiting, diarrhea, constipation GENITOURINARY: Absent: dysuria, frequency, urgency, hesitancy, hematuria, flank pain MUSCULOSKELETAL: Absent: joint swelling, back pain, neck pain SKIN: Absent: rash, itching, pallor NEUROLOGIC: Present: Headache Absent: focal weakness or paresthesias, dizziness, unsteady gait, seizure, mental status changes, bladder or bowel incontinence PSYCHIATRIC: Absent: anxiety, depression PHYSICAL EXAMINATION Vital Signs - 24 hr 05/23/18 05/23/18 05/23/18 15:08 16:45 17:31 Temperature 98.1 F Pulse Rate 84 Pulse Rate [ 88 94 H Apical] Respiratory 16 16 14 Rate Blood Pressure 192/126 H Blood Pressure 193/151 H 185/115 H [Right Arm] O2 Sat by Pulse 99 99 100 Oximetry (%) 05/23/18 05/23/18 05/23/18 18:10 18:32 19:09 Temperature Pulse Rate Pulse Rate [ 82 78 Apical] Respiratory 16 16 Rate Blood Pressure Blood Pressure 182/109 H 164/111 H [Right Arm] O2 Sat by Pulse 99 99 99 Oximetry (%) 05/23/18 05/23/18 05/23/18 19:48 20:11 20:57 Temperature Pulse Rate Pulse Rate [ 99 H 90 Apical] Respiratory 18 16 Rate Blood Pressure Blood Pressure 170/119 H 172/112 H 181/124 H [Right Arm] O2 Sat by Pulse 98 Oximetry (%) 05/23/18 05/23/18 05/24/18 21:41 23:16 00:17 Temperature Pulse Rate Pulse Rate [ 82 89 89 Apical] Respiratory 19 Rate Blood Pressure Blood Pressure 177/128 H 151/109 H 154/104 H [Right Arm] O2 Sat by Pulse 100 Oximetry (%) 05/24/18 05/24/18 05/24/18 01:14 01:49 02:36 Temperature 98.5 F Pulse Rate Pulse Rate [ 70 65 62 Apical] Respiratory 19 Rate Blood Pressure Blood Pressure 155/105 H 158/110 H 151/111 H [Right Arm] O2 Sat by Pulse 100 Oximetry (%) 05/24/18 05/24/18 05/24/18 03:44 04:52 05:31 Temperature Pulse Rate Pulse Rate [ 67 71 70 Apical] Respiratory 19 19 19 Rate Blood Pressure Blood Pressure 169/133 H 144/100 146/98 [Right Arm] O2 Sat by Pulse 100 Oximetry (%) 05/24/18 05/24/18 05/24/18 06:11 07:08 08:00 Temperature Pulse Rate Pulse Rate [ 65 75 64 Apical] Respiratory 19 16 Rate Blood Pressure Blood Pressure 173/121 H 145/98 162/120 H [Right Arm] O2 Sat by Pulse 100 100 Oximetry (%) 05/24/18 05/24/18 05/24/18 08:57 08:58 09:08 Temperature Pulse Rate Pulse Rate [ 78 Apical] Respiratory 16 18 Rate Blood Pressure Blood Pressure 158/122 H 165/129 H [Right Arm] O2 Sat by Pulse 98 100 Oximetry (%) 05/24/18 05/24/18 05/24/18 09:33 09:41 09:59 Temperature Pulse Rate Pulse Rate [ 72 69 70 Apical] Respiratory 99 H 14 18 Rate Blood Pressure Blood Pressure 164/108 H 174/126 H 175/125 H [Right Arm] O2 Sat by Pulse 100 99 Oximetry (%) 05/24/18 10:54 Temperature Pulse Rate Pulse Rate [ 70 Apical] Respiratory 16 Rate Blood Pressure Blood Pressure 154/117 H [Right Arm] O2 Sat by Pulse Oximetry (%) GENERAL: NAD, Awake, alert, and fully oriented, laying in bed HEENT: EOMI, SHERLY, ophthalmoscopic exam limited due to lack of dilation however no bulging of the optic disc seen, MMM NECK: No JVD LUNGS: CTA bilaterally. No wheezes, and no crackles. No accessory muscle use. HEART: RRR, normal S1 and S2 without murmur ABDOMEN: Soft, NT/ND, normoactive bowel sounds, no guarding MUSCULOSKELETAL: No CVA tenderness. EXTREMITIES: 2+ DP pulses, warm, well-perfused. No peripheral edema. NEUROLOGICAL: manager military II-XII intact. Strength 5/5 throughout all upper and lower extremity torres. Sensation grossly intact. Normal speech. Gait not observed. PSYCHIATRIC: Cooperative. Good eye contact. Appropriate mood and affect. SKIN: Warm, dry, no rashes or lesions noted. Laboratory Results - last 24 hr 05/23/18 05/23/18 05/23/18 16:00 16:01 16:01 WBC 7.9 RBC 4.54 Hgb 13.2 Hct 39.1 MCV 86.2 MCH 29.2 MCHC 33.9 RDW 14.3 Plt Count 225 D MPV 9.1 Absolute Neuts (auto) 5.2 Neutrophils % 66.8 Lymphocytes % 16.2 Monocytes % 7.2 Eosinophils % 9.0 H Basophils % 0.8 Nucleated RBC % 0 Sodium 138 Potassium 3.7 Chloride 99 Carbon Dioxide 29 Anion Gap 10 BUN 41 H Creatinine 4.0 H Creat Clearance w eGFR 18.24 Random Glucose 86 Calcium 8.7 Magnesium Total Bilirubin 0.4 AST 41 H ALT 29 Alkaline Phosphatase 97 Creatine Kinase 716 H Creatine Kinase Index 0.7 CK-MB (CK-2) 5.4 H Troponin I 0.13 H Total Protein 7.7 Albumin 3.5 Urine Color Ltyellow Urine Appearance Clear Urine pH 6.0 Ur Specific [place] 1.013 Urine Protein 3+ H Urine Glucose (UA) Negative Urine Ketones Negative Urine Blood 1+ H Urine Nitrite Negative Urine Bilirubin Negative Urine Urobilinogen Negative Ur Leukocyte Esterase Negative Urine WBC (Auto) 3 Urine RBC (Auto) 2 Ur Epithelial Cells Rare Hyaline Casts 1 Urine Mucus Rare 05/23/18 05/24/18 23:19 09:05 WBC RBC Hgb Hct MCV MCH MCHC RDW Plt Count MPV Absolute Neuts (auto) Neutrophils % Lymphocytes % Monocytes % Eosinophils % Basophils % Nucleated RBC % Sodium 138 Potassium 3.4 L Chloride 99 Carbon Dioxide 23 Anion Gap 16 BUN 42 H Creatinine 3.9 H Creat Clearance w eGFR 18.78 Random Glucose 98 Calcium 9.0 Magnesium 2.7 H Total Bilirubin AST ALT Alkaline Phosphatase Creatine Kinase 513 H 425 H Creatine Kinase Index 0.7 0.6 CK-MB (CK-2) 3.7 H 2.8 Troponin I 0.16 H 0.12 H Total Protein Albumin Urine Color Urine Appearance Urine pH Ur Specific [place] Urine Protein Urine Glucose (UA) Urine Ketones Urine Blood Urine Nitrite Urine Bilirubin Urine Urobilinogen Ur Leukocyte Esterase Urine WBC (Auto) Urine RBC (Auto) Ur Epithelial Cells Hyaline Casts Urine Mucus Active Medications Generic Name Dose Route Start Last Admin Trade Name Mejiaq PRN Reason Stop Dose Admin Nitroglycerin/Dextrose 25 mg in 250 mls @ 6 mls/hr 05/23/18 17:15 05/24/18 11 :23 Nitroglycerin 25mg/D5w 250ml IVPB 0 mcg/min TITR TRES 0 mls/hr Titration 10 MCG/MIN Labetalol HCl 1,000 mg/ 1,000 mls @ 15 mls/hr 05/24/18 11:15 Dextrose IV TITR TRES 0.25 MG/MIN Labetalol HCl 50 mg 05/24/18 10:09 Normodyne - PO TID TRES Nifedipine 90 mg 05/24/18 10:00 05/24/18 09:33 Procardia Xl - PO 90 mg DAILY TRES Administration ASSESSMENT/PLAN: HTN Urgency Proteinuria Acute on chronic kidney injury Lupus --Acute injury most likely 2/2 to uncontrolled HTN --Current GFR 20 based on today's Cr --Will attempt to contact outpatient aco coordinator for ongoing workup; will have to obtain previous biopsy results --Monitor Cr --Currently on nitro gtt; will need to control BP and introduce oral agents once controlled --Rest per primary team Dispo: ICU mgmt due to gtt titration. Thank you for this consultative opportunity. Case discussed with Dr. Tasha Wilkerson, DO - IM PGY-2 Visit type - Emergency Visit Emergency Visit: Yes ED Registration Date: 05/23/18 Care time: The patient presented to the Emergency Department on the above date and was hospitalized for further evaluation of their emergent condition. - New Patient This patient is new to me today: Yes Date on this admission: 05/24/18 - Critical Care Critical Care patient: No
--- NOTE | 2018-05-24 11:43 | PN ---
Progress Note (short form) - Note Progress Note: teja need icu monitirng Problem List - Problems (1) Hypertensive emergency Code(s): I10 - ESSENTIAL (PRIMARY) HYPERTENSION (2) CKD (chronic kidney disease) Code(s): N18.9 - CHRONIC KIDNEY DISEASE, UNSPECIFIED
--- NOTE | 2018-05-24 13:39 | CONSULT ---
Consultation: CONSULT REQUEST: ICU HISTORY OF PRESENT ILLNESS: Patient is a 27yo M with significant history of HTN , and CKD (unknown staging) who presents to the ER due to elevated BP, blurry vision and a headache. He was sent after his routine cardiology visit by Dr. Caldera for a BP of 170/120. In addition he reports having HTN for the past 2 years where he has only been taking Procardia. He said he was not compliant with his BP medication because it never worked. He currently denies headache and dizziness. In the ER he was started on a Nitro drip with no improvement in BP. Currently, the patient is on a Labetolol drip. He denies headache,nausea, vomiting, sob, chills, chest pain, palpitations, dysuria, arthralgia, rash. REVIEW OF SYSTEMS: CONSTITUTIONAL: Absent: fever, chills, diaphoresis, generalized weakness, malaise, loss of appetite, weight change HEENT: visual changes Absent: rhinorrhea, nasal congestion, throat pain, throat swelling, difficulty swallowing, mouth swelling, ear pain, eye pain CARDIOVASCULAR: Absent: chest pain, syncope, palpitations, irregular heart rate, lightheadedness , peripheral edema RESPIRATORY: Absent: cough, shortness of breath, dyspnea with exertion, orthopnea, wheezing, stridor, hemoptysis GASTROINTESTINAL: Absent: abdominal pain, abdominal distension, nausea, vomiting, diarrhea, constipation, melena, hematochezia GENITOURINARY: Absent: dysuria, frequency, urgency, hesitancy, hematuria, flank pain, genital pain SKIN: Absent: rash, itching, pallor NEUROLOGIC: Absent: headache, focal weakness or paresthesias, dizziness, unsteady gait, seizure, mental status changes, bladder or bowel incontinence PSYCHIATRIC: Absent: anxiety, depression, suicidal or homicidal ideation, hallucinations. PHYSICAL EXAMINATION Vital Signs - 24 hr 05/24/18 05/24/18 05/24/18 10:54 12:10 12:43 Temperature Pulse Rate 67 Pulse Rate [ 70 65 Apical] Respiratory 16 18 Rate Blood Pressure 162/119 H Blood Pressure 154/117 H 153/113 H [Right Arm] O2 Sat by Pulse 98 Oximetry (%) 05/24/18 05/24/18 12:44 13:15 Temperature Pulse Rate 60 76 Pulse Rate [ 64 Apical] Respiratory 16 Rate Blood Pressure 153/113 H 156/115 H Blood Pressure 156/115 H [Right Arm] O2 Sat by Pulse 99 Oximetry (%) GENERAL: A/o x3. NAD HEAD: Normal with no signs of trauma. EYES: Pupils equal, round and reactive to light, extraocular movements intact, sclera anicteric, conjunctiva clear. EARS, NOSE, THROAT: oropharynx clear without exudates. Moist mucous membranes. NECK: Normal range of motion, supple without lymphadenopathy. LUNGS: Breath sounds equal, clear to auscultation bilaterally. HEART: RRR, no MGR ABDOMEN: Soft, nontender, not distended, normoactive bowel sounds EXTREMITIES: 2+ pulses throughout , No peripheral edema. NEUROLOGICAL: Cranial nerves II-XII intact. PSYCHIATRIC: Cooperative. Good eye contact. Appropriate mood and affect. Laboratory Results - last 24 hr 05/23/18 05/23/18 05/23/18 16:00 16:01 16:01 WBC 7.9 RBC 4.54 Hgb 13.2 Hct 39.1 MCV 86.2 MCH 29.2 MCHC 33.9 RDW 14.3 Plt Count 225 D MPV 9.1 Absolute Neuts (auto) 5.2 Neutrophils % 66.8 Lymphocytes % 16.2 Monocytes % 7.2 Eosinophils % 9.0 H Basophils % 0.8 Nucleated RBC % 0 Sodium 138 Potassium 3.7 Chloride 99 Carbon Dioxide 29 Anion Gap 10 BUN 41 H Creatinine 4.0 H Creat Clearance w eGFR 18.24 Random Glucose 86 Calcium 8.7 Magnesium Total Bilirubin 0.4 AST 41 H ALT 29 Alkaline Phosphatase 97 Creatine Kinase 716 H Creatine Kinase Index 0.7 CK-MB (CK-2) 5.4 H Troponin I 0.13 H Total Protein 7.7 Albumin 3.5 Urine Color Ltyellow Urine Appearance Clear Urine pH 6.0 Ur Specific [place] 1.013 Urine Protein 3+ H Urine Glucose (UA) Negative Urine Ketones Negative Urine Blood 1+ H Urine Nitrite Negative Urine Bilirubin Negative Urine Urobilinogen Negative Ur Leukocyte Esterase Negative Urine WBC (Auto) 3 Urine RBC (Auto) 2 Ur Epithelial Cells Rare Hyaline Casts 1 Urine Mucus Rare 05/23/18 05/24/18 23:19 09:05 WBC RBC Hgb Hct MCV MCH MCHC RDW Plt Count MPV Absolute Neuts (auto) Neutrophils % Lymphocytes % Monocytes % Eosinophils % Basophils % Nucleated RBC % Sodium 138 Potassium 3.4 L Chloride 99 Carbon Dioxide 23 Anion Gap 16 BUN 42 H Creatinine 3.9 H Creat Clearance w eGFR 18.78 Random Glucose 98 Calcium 9.0 Magnesium 2.7 H Total Bilirubin AST ALT Alkaline Phosphatase Creatine Kinase 513 H 425 H Creatine Kinase Index 0.7 0.6 CK-MB (CK-2) 3.7 H 2.8 Troponin I 0.16 H 0.12 H Total Protein Albumin Urine Color Urine Appearance Urine pH Ur Specific [place] Urine Protein Urine Glucose (UA) Urine Ketones Urine Blood Urine Nitrite Urine Bilirubin Urine Urobilinogen Ur Leukocyte Esterase Urine WBC (Auto) Urine RBC (Auto) Ur Epithelial Cells Hyaline Casts Urine Mucus Active Medications Generic Name Dose Route Start Last Admin Trade Name Freq PRN Reason Stop Dose Admin Labetalol HCl 1,000 mg/ 1,000 mls @ 15 mls/hr 05/24/18 11:15 05/24/18 13:15 Dextrose IV 1 mg/min TITR TRES 60 mls/hr Titration 0.25 MG/MIN Nifedipine 90 mg 05/24/18 10:00 05/24/18 09:33 Procardia Xl - PO 90 mg DAILY TRES Administration ASSESSMENT/PLAN: 27yo M with significant history of Lupus, HTN, and CKD (unknown staging) who presents to the ER with elevated BP, blurry vision, headache and admitted for HTN emergency. #Neuro -at baseline #Cardio HTN emergency -stop nitro drip -cont Labetolol drip. currently 1mg/min -monitor BP -Follow cardio reccs: Dr. Caldera -QTC 506 #Nephro -hx of CKD -obtain medical records -Cr 3.9 -avoid nephrotoxins -FU renal reccs #FEN -no IV fluids -monitor -Renal diet #DVT -EA ICU monitoring Dispo: We will continue to follow the patient. Thank you for this consultative opportunity. Visit type - Emergency Visit Emergency Visit: Yes ED Registration Date: 05/23/18 Care time: The patient presented to the Emergency Department on the above date and was hospitalized for further evaluation of their emergent condition. - New Patient This patient is new to me today: Yes Date on this admission: 05/29/18 - Critical Care Critical Care patient: Yes Total Critical Care Time (in minutes): 35 Critical Care Statement: The care of this patient involved high complexity decision making to prevent further life threatening deterioration of the patient 's condition and/or to evaluate & treat vital organ system(s) failure or risk of failure.
--- NOTE | 2018-05-24 13:53 | PN ---
Teaching Attending Note Name of Resident: Casey Wilkerson (Nephrology) ATTENDING PHYSICIAN STATEMENT I saw and evaluated the patient. I reviewed the resident's note and discussed the case with the resident. I agree with the resident's findings and plan as documented. Renal Pt is a 27 year old male with pmhx of HTN, factor xi deficiency, and CKD who was sent in for cardiology for elevated blood pressure. He was found to be hypertensive and started on a nitro drip. He has been on multiple medications in the past and has stopped them for various reasons. He is supposed to be on nifedipine 90 mg however he takes it intermittently. He denies shortness of breath or chest pain. He denies fevers or chills. He denies nsaid use. He still smokes marijuana. PMHx htn ckd favtor xi deficiency allergies banana social history lives at home, does smoke marijuana and uses various supplements ros denies Current Medications Generic Name Dose Route Start Last Admin Trade Name Freq PRN Reason Stop Dose Admin Labetalol HCl 1,000 mg/ 1,000 mls @ 15 mls/hr 05/24/18 11:15 05/24/18 13:48 Dextrose IV 0.5 mg/min TITR TRES 30 mls/hr Titration 0.25 MG/MIN Nifedipine 90 mg 05/24/18 10:00 05/24/18 09:33 Procardia Xl - PO 90 mg DAILY [facility] Administration Laboratory Tests 03/08/18 05/23/18 05/23/18 20:00 16:00 16:01 WBC 7.9 Hgb 13.2 Sodium Potassium Chloride Carbon Dioxide Anion Gap BUN Creatinine 2.6 H Urine Protein 3+ H Urine Blood 1+ H 05/23/18 05/24/18 16:01 09:05 WBC Hgb Sodium 138 Potassium 3.4 L Chloride 99 Carbon Dioxide 23 Anion Gap 16 BUN 42 H Creatinine 4.0 H 3.9 H Urine Protein Urine Blood KIDNEY BIOPSY RESULTS - 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 CKD 2. JENNIFFER 3. hypertensive urgency 4. hypokalemia 5. right side hydro 6. non compliance Plan - cont with labetolol drip and nifedipine - admit to ICU - decrease map by 25 percent - monitor bp closely - worsening renal failure may be progression of kidney disease - will order ct to evaluate hydro, call urology if persistent - discussed with Dr Arzate - discussed with pt and his family - pt does not have a diagnosis of SLE - will follow - replace potassium Dr Cordova
[2018-05-24] MEDS ORDERED: POTASSIUM CHLORIDE TABS 10 MEQ TABLET.ER (FP) PO ONE (15:00)
[2018-05-24] MEDS ORDERED: POTASSIUM CHLORIDE TABS 10 MEQ TABLET.ER (FP) ONE (15:55)
[2018-05-24 16:58] VITALS: BMI 23.3
--- NOTE | 2018-05-24 17:27 | PN ---
Progress Note (short form) - Note Progress Note: Patient received in the ICU at 4:30 pm today. Currently he is asymptomatic. Denies headache, blurring of vision, numbness, tingling, chest pain, sob, cough , palpitation, abdominal pain, nausea or vomiting. Last Bowel movement was this morning. Bladder habit normal. Reports he is hungry and wants to eat. Vitals: BP: 134/87 mmHg; Pulse-55 bpm, RR-18; Spo2-100 % in RA General: Patient is sitting in bed, awake, alert, oriented x 3, in no acute distress. HEENT: PEERLA, EOM intact, no pallor or icterus. No papilloedema appreciated. Neck: Supple. No JVD Chest: B/L Lungs clear, no wheeze or crackles. Abdomen: Soft, non tender, no organomegaly. Neuro: No facial droop, power 5/5 in all extremities; sensation intact, CN-2-12 grossly intact, no focal neurological deficits. Ext: No peripheral edema. Assessment/Plan: Patient is a 27 year old male with a significant past medical history of significant for Lupus, Raynaud Syndrome, CKD and HTN presented to the ED with elevated blood pressure admitted in ICU for close monitoring of blood pressure. Cardio Hypertensive emergency On arrival, patient's BP in the ED was 192/126 mmHg. Was started on Nitro drip without good control of blood pressure. So it was stopped and started on IV Labetolol @ 0.25 mcgs/hr. Currently, BP is 131/86 mmHg. ECHO 05/24/2018: Left ventricle is mildly dilated. EF 50-55 %. Right ventricle is normal in size and function. Left atrium is mildly dilated. There is trace MR Cardiology consult appreciated (Dr. Caldera) who recommends to titrate Labetolol and start PO Labetalol 50mg TID and follow BP closely Tolerating IV Labetolol now. When switched to PO Labetolol will transfer patient to Tele. Neuro checks Increased troponin likely due to demand ischemia Troponin 0.13-->0.16--->0.12, will trend Low suspicion for ACS. Renal Creatinine 3.9 today (1.5 in 11/2015) Undergoing evaluation for CKD. Patient's mother reports he had a kidney biopsy at [place] which was inconclusive and ruled out he doesn't have lupus nephritis F/up with Dr Rober Arzate as outpatient Avoid nephrotoxic drugs Renal diet Respiratory Abd/Pelvis CT showed Mild focal opacity within the inferior lingula may represent focal atelectasis vs an infiltrate. Left Pleural effusion Low suspicion for pneumonia. Will observe off antibiotics. CXR in AM Rheumatology Has a h/o Lupus, diagnosed > 4 years ago. F/up with Dr. Joshi as outpatient. Not on any medication FEN Not on IV fluids, tolerating PO well Will send electrolytes Renal diet Prophylaxis For DVT: On SCD's. For GI: Not indicated Code Status Full Code Dispo: Admitted in ICU. Will transfer the patient to Tele once Nitro drip is stopped. Illness, Investigation and Plan of care explained to the patient and his mother. They verbalized understanding.
[2018-05-25 06:09] LABS: HEMATOCRIT 33.9 % (35.4-49); HEMOGLOBIN 11.3 GM/dL (11.7-16.9); MCH 28.9 pg (25.7-33.7); MCHC 33.3 g/dl (32.0-35.9); MEAN CELL VOLUME 86.6 fl (80-96); MEAN PLT VOLUME 9.3 fl (7.5-11.1); MONO % 8.5 % (3.8-10.2); NEUT % 56.5 % (42.8-82.8); PLATELET COUNT 209 K/MM3 (134-434); RBC 3.91 M/mm3 (4.00-5.60); RDW 14.4 % (11.9-15.9); WHITE BLOOD COUNT 6.5 K/mm3 (4.0-10.0)
[2018-05-25 06:35] LABS: ALBUMIN 2.9 g/dl (3.4-5.0); ALK PHOS 69 U/L (45-117); ANION GAP 10 MMOL/L (8-16); BILIRUBIN,TOTAL 0.4 mg/dL (0.2-1); BLOOD UREA NITROGEN 45 mg/dL (7-18); CALCIUM 8.1 mg/dL (8.5-10.1); CHLORIDE 103 mmol/L (98-107); CO2 27 mmol/L (21-32); GLUCOSE,RANDOM 80 mg/dL (74-106); MAGNESIUM 2.5 mg/dL (1.8-2.4); PHOSPHOROUS 5.2 mg/dL (2.5-4.9); POTASSIUM 3.4 mmol/L (3.5-5.1); SGOT/AST 23 U/L (15-37); SGPT/ALT 20 U/L (13-61); SODIUM 139 mmol/L (136-145); TOT PROT 6.2 g/dl (6.4-8.2)
[2018-05-25] MEDS: LABETALOL HCL 100 MG TABLET (FP) PO SCH ×2 (06:42→13:11)
--- NOTE | 2018-05-25 08:07 | PN ---
Progress Note, Physician - Current Medication List Current Medications: Active Medications Labetalol HCl (Normodyne -) 50 mg PO TID [facility] Last Admin: 05/25/18 06:42 Dose: 50 mg Nifedipine (Procardia Xl -) 90 mg PO DAILY [facility] - Objective Vital Signs: Vital Signs Temperature 97.8 F 05/25/18 06:00 Pulse Rate 60 05/25/18 06:00 Respiratory Rate 18 05/25/18 06:00 Blood Pressure 129/83 05/25/18 06:00 O2 Sat by Pulse Oximetry (%) 98 05/24/18 20:17 Cardiovascular: Yes: Regular Rate and Rhythm Respiratory: Yes: Regular, CTA Bilaterally Gastrointestinal: Yes: Normal Bowel Sounds, Soft Neurological: Yes: Alert, Oriented Labs: CBC, BMP 05/25/18 05:30 05/25/18 05:30 Problem List - Problems (1) Hypertensive emergency Assessment/Plan: - Continue Nifedipine ER 90mg Daily - PO Labetalol -Echo with evidence of hypertensive heart disease: LAE, LVH, aortic root dilatation. -CARDIO AND RENAL ON BOARD Code(s): I10 - ESSENTIAL (PRIMARY) HYPERTENSION (2) Lupus (systemic lupus erythematosus) Code(s): M32.9 - SYSTEMIC LUPUS ERYTHEMATOSUS, UNSPECIFIED Qualifiers: Systemic lupus erythematosus type: unspecified Systemic lupus erythematosus organ involvement: unspecified Qualified Code(s): M32.9 - Systemic lupus erythematosus, unspecified (3) JENNIFFER (acute kidney injury) Assessment/Plan: -PER AMINTA' -MONITOR Code(s): N17.9 - ACUTE KIDNEY FAILURE, UNSPECIFIED
--- NOTE | 2018-05-25 09:17 | PN ---
Progress Note, Physician Chief Complaint: comfortable, no chest pain TELE: NSR Off Labetalol drip - Current Medication List Current Medications: Active Medications Labetalol HCl (Normodyne -) 50 mg PO TID [facility] Last Admin: 05/25/18 06:42 Dose: 50 mg Nifedipine (Procardia Xl -) 90 mg PO DAILY [facility] - Objective Vital Signs: Vital Signs Temperature 97.8 F 05/25/18 06:00 Pulse Rate 60 05/25/18 08:00 Respiratory Rate 18 05/25/18 08:00 Blood Pressure 124/72 05/25/18 08:00 O2 Sat by Pulse Oximetry (%) 98 05/24/18 20:17 Constitutional: Yes: No Distress, Calm Eyes: Yes: Conjunctiva Clear Cardiovascular: Yes: Regular Rate and Rhythm Respiratory: Yes: CTA Bilaterally Gastrointestinal: Yes: Soft Edema: No Neurological: Yes: Alert, Oriented Labs: CBC, BMP 05/25/18 05:30 05/25/18 05:30 - ....Imaging EKG: Image Reviewed Assessment/Plan IMP: Acute renal failure Hypertensive urgency Small, stable ascending aortic aneurysm 4.0cm Raynaud's Phenomenon Hypercoag state Possible autoimmune disease REC: 1. Continue Nifedipine ER 90mg Daily 2. Initiate PO Labetalol now that drip weaned. 3. Echo with evidence of hypertensive heart disease: LAE, LVH, aortic root dilatation. 5. Daily BMP, renal fx stable, renal following 6. Suspect the borderline elevation in TnI is due to chronic HTN heart disease, diastolic dysfx and CKD. Consider stress MPI when BP stable.
[2018-05-25] MEDS: NIFEdipine E.R. 90 MG TABLET (FP) PO SCH (09:27)
--- NOTE | 2018-05-25 09:57 | PN ---
Progress Note (short form) - Note Progress Note: RENAL Pt is awake and alert admits to not being compliant with antihypertensive denies current complaints though states he still experiences some discomfort from previous kidney biopsy site has been dyspneic on minimal exertion Last Vital Signs Temp Pulse Resp BP Pulse Ox 97.8 F 60 18 124/72 98 05/25/18 06:00 05/25/18 08:00 05/25/18 08:00 05/25/18 08:00 05/24/18 20:17 Lungs clear cvs s1s2 rr, +LUIS EDUARDO abd soft ext no edema neuro a+ox3 CBC, BMP 05/25/18 05:30 05/25/18 05:30 Current Medications Generic Name Dose Route Start Last Admin Trade Name Freq PRN Reason Stop Dose Admin Labetalol HCl 50 mg 05/25/18 06:15 05/25/18 06:42 Normodyne - PO 50 mg TID TRES Administration Nifedipine 90 mg 05/25/18 10:00 05/25/18 09:27 Procardia Xl - PO 90 mg DAILY TRES Administration Impression 1. CKD 2. JENNIFFER 3. hypertensive urgency 4. hypokalemia 5. right side hydro 6. non compliance Plan -agree with changing to oral meds -replace potassium -monitor kidney function -anticentromere antibodies- ?scleroderma MV
[2018-05-25] MEDS ORDERED: hydrALAZINE HCL 20 MG/ML VIAL IVPUSH PRN (18:14)
[2018-05-25] MEDS ORDERED: LABETALOL HCL 100 MG TABLET (FP) PO SCH (18:45)
--- NOTE | 2018-05-25 20:30 | PN ---
Progress Note (short form) - Note Progress Note: CCM Seen and examined in ICU 24Hr: weaned off IV gtt meds BP more under control trop down trending Cr stable Vital Signs Temp 98 F 05/25/18 18:00 Pulse 77 05/25/18 18:00 Resp 14 05/25/18 18:00 BP 162/113 H 05/25/18 18:00 Pulse Ox 98 05/25/18 09:00 Intake & Output 05/24/18 05/25/18 05/25/18 23:59 11:59 23:59 Intake Total 105 105 240 Balance 105 105 240 Weight 89.5 kg 89.358 kg Intake: IV 105 105 Normodyne Injection - 1, 105 105 000 mg In D5w - 800 ml @ 0.25 MG/MIN 15 mls/hr IV TITR TRES Rx#:[id number] Oral 240 Other: Voiding Method Toilet Toilet Height 6 ft 5 in 6 ft 5 in Body Mass Index (BMI) 23.3 23.3 Weight Measurement Method Built in [facility] Current Medications Hydralazine HCl (Apresoline Injection -) 10 mg IVPUSH ONCE PRN PRN Reason: HYPERTENSION Labetalol HCl (Normodyne -) 100 mg PO BID [facility] Last Admin: 05/25/18 18:45 Dose: 100 mg Nifedipine (Procardia Xl -) 90 mg PO DAILY [facility] Last Admin: 05/25/18 09:27 Dose: 90 mg Laboratory Results - last 24 hr 05/25/18 05/25/18 05/25/18 05:30 05:30 05:30 WBC 6.5 RBC 3.91 L Hgb 11.3 L Hct 33.9 L MCV 86.6 MCH 28.9 MCHC 33.3 RDW 14.4 Plt Count 209 MPV 9.3 Absolute Neuts (auto) 3.6 Neutrophils % 56.5 Lymphocytes % 20.0 D Monocytes % 8.5 Eosinophils % 14.0 H Basophils % 1.0 Nucleated RBC % 0 Sodium 139 Potassium 3.4 L Chloride 103 Carbon Dioxide 27 Anion Gap 10 BUN 45 H Creatinine 4.0 H Creat Clearance w eGFR 18.24 Random Glucose 80 Calcium 8.1 L Phosphorus 5.2 H Magnesium 2.5 H Total Bilirubin 0.4 AST 23 ALT 20 Alkaline Phosphatase 69 Creatine Kinase 352 H Creatine Kinase Index 0.7 CK-MB (CK-2) 2.8 Troponin I 0.09 H Total Protein 6.2 L Albumin 2.9 L Constitutional: Yes: No Distress, Calm, playing video game Eyes: Yes: Conjunctiva Clear Cardiovascular: Yes: Regular Rate and Rhythm Respiratory: Yes: CTA Bilaterally, no wheezes, no distress Gastrointestinal: Yes: Soft Edema: No Neurological: Yes: Alert, Oriented, non focal A/ 27 y/o with HTN, CKD, p/w htn urgency/emergency (trop, Cr) in setting of poor compliance. P/ -nephrology and Cards following -back on PO agents, up titrate as needed (baseline 150-160 SBP per pt) -ok for tx to floor -reg diet -OOB, ambulation daily Claudine ACNP [id number]
[2018-05-26] MEDS ORDERED: LABETALOL HCL 200 MG TABLET (FP) PO SCH (08:40)
--- NOTE | 2018-05-26 08:40 | PN ---
Progress Note, Physician - Current Medication List Current Medications: Active Medications Hydralazine HCl (Apresoline Injection -) 10 mg IVPUSH ONCE PRN PRN Reason: HYPERTENSION Last Admin: 05/26/18 01:50 EST Dose: 10 mg Nifedipine (Procardia Xl -) 90 mg PO DAILY TRES Last Admin: 05/25/18 09:27 Dose: 90 mg - Objective Vital Signs: Vital Signs Temperature 98.1 F 05/26/18 06:00 Pulse Rate 77 05/26/18 08:36 Respiratory Rate 16 05/26/18 08:36 Blood Pressure 194/136 H 05/26/18 08:36 O2 Sat by Pulse Oximetry (%) 95 05/26/18 07:48 Cardiovascular: Yes: Regular Rate and Rhythm Respiratory: Yes: Regular, CTA Bilaterally Gastrointestinal: Yes: Normal Bowel Sounds, Soft Labs: CBC, BMP 05/25/18 05:30 05/25/18 05:30 Problem List - Problems (1) Hypertensive emergency Assessment/Plan: - Continue Nifedipine ER 90mg Daily - PO Labetalol increase 200 bid -add hydralazine -Echo with evidence of hypertensive heart disease: LAE, LVH, aortic root dilatation. -CARDIO AND RENAL ON BOARD -renal artery us Code(s): I10 - ESSENTIAL (PRIMARY) HYPERTENSION (2) Lupus (systemic lupus erythematosus) Assessment/Plan: rheumotology Code(s): M32.9 - SYSTEMIC LUPUS ERYTHEMATOSUS, UNSPECIFIED Qualifiers: Systemic lupus erythematosus type: unspecified Systemic lupus erythematosus organ involvement: unspecified Qualified Code(s): M32.9 - Systemic lupus erythematosus, unspecified (3) JENNIFFER (acute kidney injury) Assessment/Plan: -PER AMINTA' -MONITOR Code(s): N17.9 - ACUTE KIDNEY FAILURE, UNSPECIFIED
[2018-05-26] MEDS: NIFEdipine E.R. 90 MG TABLET (FP) PO SCH (08:50)
[2018-05-26] MEDS: LABETALOL HCL 100 MG TABLET (FP) PO SCH ×2 (08:50→21:01)
[2018-05-26] MEDS ORDERED: hydrALAZINE HCL 25 MG TABLET (FP) ONE (08:55)
[2018-05-26] MEDS ORDERED: LABETALOL HCL 100 MG TABLET (FP) PO ONE (09:03)
--- NOTE | 2018-05-26 09:14 | PN ---
Progress Note (short form) - Note Progress Note: RENAL Pt is awake and alert no new complaints except that the bed is too small for him BP has been high Last Vital Signs Temp Pulse Resp BP Pulse Ox 98.1 F 77 16 194/136 H 95 05/26/18 06:00 05/26/18 08:36 05/26/18 08:36 05/26/18 08:36 05/26/18 07:48 Lungs clear cvs s1s2 rr, +LUIS EDUARDO abd soft ext no edema neuro a+ox3 CBC, BMP 05/25/18 05:30 05/25/18 05:30 Current Medications Generic Name Dose Route Start Last Admin Trade Name Freq PRN Reason Stop Dose Admin Hydralazine HCl 10 mg 05/25/18 18:14 05/26/18 01:50 EST Apresoline Injection - IVPUSH 10 mg ONCE PRN Administration HYPERTENSION Hydralazine HCl 25 mg 05/26/18 10:00 Apresoline - PO BID TRES Labetalol HCl 300 mg 05/26/18 09:02 Normodyne - PO BID TRES Labetalol HCl 100 mg 05/26/18 09:03 Normodyne - PO 05/26/18 09:04 ONCE ONE Nifedipine 90 mg 05/25/18 10:00 05/25/18 09:27 Procardia Xl - PO 90 mg DAILY TRES Administration Impression 1. CKD 2. JENNIFFER 3. hypertensive urgency 4. hypokalemia 5. right side hydro 6. non compliance Plan - would increase labetalol q8 hours by 100 mg until bp controlled, he is bradycardic or max of 800 tid -monitor kidney function -anticentromere antibodies- ?scleroderma - would ask rheum to eval again MV
--- NOTE | 2018-05-26 09:15 | PN ---
Progress Note, Physician - Current Medication List Current Medications: Active Medications Hydralazine HCl (Apresoline Injection -) 10 mg IVPUSH ONCE PRN PRN Reason: HYPERTENSION Last Admin: 05/26/18 01:50 EST Dose: 10 mg Hydralazine HCl (Apresoline -) 25 mg PO BID [facility] Labetalol HCl (Normodyne -) 300 mg PO BID [facility] Labetalol HCl (Normodyne -) 100 mg PO ONCE ONE Stop: 05/26/18 09:04 Nifedipine (Procardia Xl -) 90 mg PO DAILY [facility] Last Admin: 05/25/18 09:27 Dose: 90 mg - Objective Vital Signs: Vital Signs Temperature 98.1 F 05/26/18 06:00 Pulse Rate 77 05/26/18 08:36 Respiratory Rate 16 05/26/18 08:36 Blood Pressure 194/136 H 05/26/18 08:36 O2 Sat by Pulse Oximetry (%) 95 05/26/18 07:48 Labs: CBC, BMP 05/25/18 05:30 05/25/18 05:30 Assessment/Plan IMP: Acute renal failure Hypertensive urgency Small, stable ascending aortic aneurysm 4.0cm Raynaud's Phenomenon Hypercoag state Possible autoimmune disease REC: 1. Continue Nifedipine ER 90mg Daily 2. Titrate Labetalol. 3. Echo with evidence of hypertensive heart disease: LAE, LVH, aortic root dilatation. 5. Daily BMP, renal fx stable, renal following 6. Suspect the borderline elevation in TnI is due to chronic HTN heart disease, diastolic dysfx and CKD. Consider stress MPI when BP stable.
[2018-05-26] MEDS ORDERED: hydrALAZINE HCL 25 MG TABLET (FP) PO SCH (10:00)
[2018-05-26 10:36] LABS: ALBUMIN 3.1 g/dl (3.4-5.0); ALK PHOS 76 U/L (45-117); ANION GAP 10 MMOL/L (8-16); BILIRUBIN,TOTAL 0.3 mg/dL (0.2-1); BLOOD UREA NITROGEN 47 mg/dL (7-18); CALCIUM 8.1 mg/dL (8.5-10.1); CHLORIDE 103 mmol/L (98-107); CO2 26 mmol/L (21-32); CREATININE 4.2 mg/dL (0.55-1.3); GLUCOSE,RANDOM 88 mg/dL (74-106); POTASSIUM 3.6 mmol/L (3.5-5.1); SGOT/AST 29 U/L (15-37); SGPT/ALT 25 U/L (13-61); SODIUM 139 mmol/L (136-145); TOT PROT 6.6 g/dl (6.4-8.2)
--- NOTE | 2018-05-26 17:25 | PN ---
Progress Note (short form) - Note Progress Note: CCM Seen and examined in ICU 24Hr: -still awaiting floor bed unchanged Vital Signs Temp 98 F 05/26/18 14:00 Pulse 86 05/26/18 16:00 Resp 17 05/26/18 16:00 BP 179/117 H 05/26/18 16:00 Pulse Ox 95 05/26/18 07:48 Intake & Output 05/26/18 05/26/18 05/26/18 00:59 11:59 23:59 Intake Total 550 Balance 550 Weight Intake: IV LAC Oral 550 Other: Voiding Method Height Body Mass Index (BMI) Current Medications Hydralazine HCl (Apresoline Injection -) 10 mg IVPUSH ONCE PRN PRN Reason: HYPERTENSION Labetalol HCl (Normodyne -) 100 mg PO BID [facility] Last Admin: 05/25/18 18:45 Dose: 100 mg Nifedipine (Procardia Xl -) 90 mg PO DAILY [facility] Last Admin: 05/25/18 09:27 Dose: 90 mg Laboratory Results - last 24 hr 05/26/18 09:46 Sodium 139 Potassium 3.6 Chloride 103 Carbon Dioxide 26 Anion Gap 10 BUN 47 H Creatinine 4.2 H Creat Clearance w eGFR 17.24 Random Glucose 88 Calcium 8.1 L Total Bilirubin 0.3 AST 29 ALT 25 Alkaline Phosphatase 76 Creatine Kinase 499 H Creatine Kinase Index 0.8 CK-MB (CK-2) 4.3 H Troponin I 0.07 H Total Protein 6.6 Albumin 3.1 L Constitutional: Yes: No Distress, Calmambulating in room Eyes: Yes: Conjunctiva Clear Cardiovascular: Yes: Regular Rate and Rhythm Respiratory: Yes: CTA Bilaterally, no wheezes, no distress Gastrointestinal: Yes: Soft Edema: No Neurological: Yes: Alert, Oriented, non focal A/ 27 y/o with HTN, CKD, p/w htn urgency/emergency (trop, Cr) in setting of poor compliance. P/ -nephrology and Cards following -back on PO agents, up titrate as needed (baseline 150-160 SBP per pt) -increase hydralazine to TID, appears rebounding a bit between doses (consider clonidine patch?, though compliance is issue) -ok for tx to floor -reg diet -OOB, ambulation daily [place] ACNP [id number]
[2018-05-26] MEDS: hydrALAZINE HCL 25 MG TABLET (FP) PO SCH ×2 (17:45→21:02)
[2018-05-27] MEDS: hydrALAZINE HCL 25 MG TABLET (FP) PO SCH ×2 (06:07→13:42)
[2018-05-27 06:42] LABS: ALK PHOS 66 U/L (45-117); ANION GAP 11 MMOL/L (8-16); BILIRUBIN,TOTAL 0.3 mg/dL (0.2-1); BLOOD UREA NITROGEN 51 mg/dL (7-18); CALCIUM 8.1 mg/dL (8.5-10.1); CHLORIDE 104 mmol/L (98-107); CO2 26 mmol/L (21-32); CREATININE 4.1 mg/dL (0.55-1.3); GLUCOSE,RANDOM 82 mg/dL (74-106); POTASSIUM 3.6 mmol/L (3.5-5.1); SGOT/AST 32 U/L (15-37); SGPT/ALT 28 U/L (13-61); SODIUM 141 mmol/L (136-145); TOT PROT 6.2 g/dl (6.4-8.2)
--- NOTE | 2018-05-27 09:05 | PN ---
Progress Note, Physician Chief Complaint: PATIENT SEEN IN ICU FEELING BETTER NAD - Current Medication List Current Medications: Active Medications Hydralazine HCl (Apresoline -) 25 mg PO TID [facility] Last Admin: 05/27/18 06:07 Dose: 25 mg Labetalol HCl (Normodyne -) 300 mg PO BID [facility] Last Admin: 05/26/18 21:01 Dose: 300 mg Nifedipine (Procardia Xl -) 90 mg PO DAILY [facility] Last Admin: 05/26/18 08:50 Dose: 90 mg - Objective Vital Signs: Vital Signs Temperature 98.2 F 05/27/18 05:48 Pulse Rate 71 05/27/18 05:48 Respiratory Rate 16 05/27/18 05:48 Blood Pressure 154/97 05/27/18 05:48 O2 Sat by Pulse Oximetry (%) 95 05/26/18 20:34 Constitutional: Yes: No Distress Eyes: Yes: WNL HENT: Yes: WNL Neck: Yes: WNL Cardiovascular: Yes: Regular Rate and Rhythm Respiratory: Yes: WNL Gastrointestinal: Yes: WNL Musculoskeletal: Yes: WNL Extremities: Yes: WNL Edema: No Integumentary: Yes: WNL Wound/Incision: Yes: Clean/Dry Neurological: Yes: WNL ...Motor Strength: WNL Psychiatric: Yes: WNL Labs: CBC, BMP 05/25/18 05:30 05/27/18 05:30 Problem List - Problems (1) High blood pressure Code(s): I10 - ESSENTIAL (PRIMARY) HYPERTENSION Qualifiers: Hypertension type: unspecified Qualified Code(s): I10 - Essential (primary ) hypertension (2) Hypertensive emergency Code(s): I10 - ESSENTIAL (PRIMARY) HYPERTENSION (3) Lupus (systemic lupus erythematosus) Code(s): M32.9 - SYSTEMIC LUPUS ERYTHEMATOSUS, UNSPECIFIED Qualifiers: Systemic lupus erythematosus type: unspecified Systemic lupus erythematosus organ involvement: unspecified Qualified Code(s): M32.9 - Systemic lupus erythematosus, unspecified (4) Raynaud phenomenon Code(s): I73.00 - RAYNAUD'S SYNDROME WITHOUT GANGRENE Qualifiers: Raynaud?s-associated gangrene presence: without gangrene Qualified Code(s) : I73.00 - Raynaud's syndrome without gangrene (5) Chest pain Code(s): R07.9 - CHEST PAIN, UNSPECIFIED Qualifiers: Chest pain type: chest pain on breathing Qualified Code(s): R07.1 - Chest pain on breathing Assessment/Plan BP CONTROL OOB TO CHAIR STRESS TEST TODAY AWAIT RESULTS CARDIO EVAL D/W PATIENT NO STRENUOUS EXERCISES OR HEAVY LIFTING WHILE AT WORK
--- NOTE | 2018-05-27 09:30 | PN ---
Progress Note, Physician Chief Complaint: BP improved Renal fxn remains stable. History of Present Illness: TELE: NSR - Current Medication List Current Medications: Active Medications Hydralazine HCl (Apresoline -) 25 mg PO TID [facility] Last Admin: 05/27/18 06:07 Dose: 25 mg Labetalol HCl (Normodyne -) 300 mg PO BID [facility] Last Admin: 05/26/18 21:01 Dose: 300 mg Nifedipine (Procardia Xl -) 90 mg PO DAILY [facility] Last Admin: 05/26/18 08:50 Dose: 90 mg - Objective Vital Signs: Vital Signs Temperature 98.2 F 05/27/18 05:48 Pulse Rate 71 05/27/18 05:48 Respiratory Rate 16 05/27/18 05:48 Blood Pressure 154/97 05/27/18 05:48 O2 Sat by Pulse Oximetry (%) 95 05/26/18 20:34 Constitutional: Yes: No Distress, Calm Eyes: Yes: Conjunctiva Clear Cardiovascular: Yes: Regular Rate and Rhythm Respiratory: Yes: CTA Bilaterally Gastrointestinal: Yes: Soft Edema: No Neurological: Yes: Alert, Oriented ...Motor Strength: WNL Labs: CBC, BMP 05/25/18 05:30 05/27/18 05:30 Laboratory Tests 05/24/18 05/24/18 05/25/18 09:05 19:30 05:30 WBC 6.5 Hgb 11.3 L Plt Count 209 Sodium Potassium BUN Creatinine Magnesium Creatine Kinase 425 H Troponin I 0.12 H 0.08 H 05/25/18 05/25/18 05/27/18 05:30 05:30 05:30 WBC Hgb Plt Count Sodium 139 141 Potassium 3.4 L 3.6 BUN 45 H 51 H Creatinine 4.0 H 4.1 H Magnesium 2.5 H Creatine Kinase 352 H Troponin I 0.09 H - ....Imaging EKG: Image Reviewed Assessment/Plan IMP: Acute renal failure Hypertensive urgency Small, stable ascending aortic aneurysm 4.0cm Raynaud's Phenomenon Hypercoag state Possible autoimmune disease REC: 1. Continue Nifedipine ER 90mg Daily and Labetalol. 3. Echo with evidence of hypertensive heart disease: LAE, LVH, aortic root dilatation. 5. Daily BMP, renal fx stable, renal following 6. Suspect the borderline elevation in TnI is due to chronic HTN heart disease, diastolic dysfx and CKD. Multiple risk factors: will check Lexiscan MIBI in AM
[2018-05-27] MEDS: LABETALOL HCL 100 MG TABLET (FP) PO SCH ×2 (09:47→22:30)
[2018-05-27] MEDS: NIFEdipine E.R. 90 MG TABLET (FP) PO SCH ×2 (09:47→10:56)
[2018-05-27] MEDS ORDERED: REGADENOSON 0.4 MG/5 ML PRE-FILLED SYRINGE IVPUSH ONE ×2 (10:44→14:30)
--- NOTE | 2018-05-27 13:20 | PN ---
Physical Exam: SUBJECTIVE: Patient seen and examined at bedside. he has no current complaints. Awaiting transfer. No acute events overnight. He denies chest pain, headache, blurry vision, SOB, difficulty breathing, back pain. or abdominal pain. OBJECTIVE: Vital Signs Period Temp Pulse Resp BP Sys/Michele Pulse Ox Last 24 Hr 98 F-98.2 F 65-86 14-20 149-179/56-117 95-95 GENERAL: The patient is awake, alert, and fully oriented, in no acute distress. HEAD: Normal with no signs of trauma. EYES: PERRL, extraocular movements intact, sclera anicteric, conjunctiva clear. No ptosis. ENT: Ears normal, nares patent, oropharynx clear without exudates, moist mucous membranes. NECK: Trachea midline, full range of motion, supple. LUNGS: Breath sounds equal, clear to auscultation bilaterally, no wheezes, no crackles, no accessory muscle use. HEART: Regular rate and rhythm, S1, S2 without murmur, rub or gallop. ABDOMEN: Soft, nontender, nondistended, normoactive bowel sounds, no guarding, no rebound, no hepatosplenomegaly, no masses. EXTREMITIES: 2+ pulses, warm, well-perfused, no edema. NEUROLOGICAL: Cranial nerves II through XII grossly intact. Normal speech, gait not observed. PSYCH: Normal mood, normal affect. SKIN: Warm, dry, normal turgor, no rashes or lesions noted Laboratory Results - last 24 hr 05/27/18 05:30 Sodium 141 Potassium 3.6 Chloride 104 Carbon Dioxide 26 Anion Gap 11 BUN 51 H Creatinine 4.1 H Creat Clearance w eGFR 17.73 Random Glucose 82 Calcium 8.1 L Total Bilirubin 0.3 AST 32 ALT 28 Alkaline Phosphatase 66 Total Protein 6.2 L Albumin 3.0 L Active Medications Generic Name Dose Route Start Last Admin Trade Name Freq PRN Reason Stop Dose Admin Hydralazine HCl 25 mg 05/26/18 17:30 05/27/18 06:07 Apresoline - PO 25 mg TID [facility] Administration Labetalol HCl 300 mg 05/26/18 09:02 05/27/18 09:47 Normodyne - PO 300 mg BID [facility] Administration Nifedipine 90 mg 05/27/18 10:00 05/27/18 10:56 Procardia Xl - PO 90 mg DAILY [facility] Administration ASSESSMENT/PLAN: Assessment: 27 year old male with a significant past medical history of possible Lupus, Raynaud Syndrome, CKD and HTN presented to the ED with elevated blood pressure and was admitted to the ICU for close monitoring of blood pressure. he had Hypertensive urency/emerg. BP stable now. He has been stable for transfer for 2 days now. Will continue current management. Patient has been switched to his home med routine. lebatalol, hydralazine, nifedipine. Plan: Cardio Hypertensive emergency Switched from Iv to PO Labetolol Renal Creatinine 4.1 today, BUN 51. Undergoing evaluation for CKD. Patient's mother reports he had a kidney biopsy at [place] which was inconclusive and ruled out he doesn't have lupus nephritis Avoid nephrotoxic drugs Renal diet Respiratory Abd/Pelvis CT showed Mild focal opacity within the inferior lingula may represent focal atelectasis vs an infiltrate. Rheumatology Has a h/o possible Lupus, diagnosed > 4 years ago. F/up with Dr. Joshi as outpatient. Not on any medication FEN Not on IV fluids, tolerating PO well Will send electrolytes and replete PRN Renal diet Prophylaxis For DVT: On SCD's. For GI: Not indicated Code Status Full Code Dispo: Patient is transfered to Tele. Visit type - Emergency Visit Emergency Visit: Yes ED Registration Date: 05/23/18 Care time: The patient presented to the Emergency Department on the above date and was hospitalized for further evaluation of their emergent condition. - New Patient This patient is new to me today: Yes Date on this admission: 05/27/18 - Critical Care Critical Care patient: Yes Total Critical Care Time (in minutes): 36 Critical Care Statement: The care of this patient involved high complexity decision making to prevent further life threatening deterioration of the patient 's condition and/or to evaluate & treat vital organ system(s) failure or risk of failure.
--- NOTE | 2018-05-27 15:38 | PN ---
Progress Note, Physician History of Present Illness: Pt seen and examined at bedside earlier today. He is going for a stress test. He denies chest pain or palpitations. - Current Medication List Current Medications: Active Medications Hydralazine HCl (Apresoline -) 25 mg PO TID [facility] Last Admin: 05/27/18 13:42 Dose: 25 mg Labetalol HCl (Normodyne -) 300 mg PO BID [facility] Last Admin: 05/27/18 09:47 Dose: 300 mg Nifedipine (Procardia Xl -) 90 mg PO DAILY [facility] Last Admin: 05/27/18 10:56 Dose: 90 mg - Objective Vital Signs: Vital Signs Temperature 98.2 F 05/27/18 05:48 Pulse Rate 70 05/27/18 09:00 Respiratory Rate 18 05/27/18 09:00 Blood Pressure 155/100 05/27/18 09:00 O2 Sat by Pulse Oximetry (%) 95 05/27/18 09:00 Constitutional: Yes: Calm Eyes: Yes: Conjunctiva Clear HENT: Yes: Atraumatic Cardiovascular: Yes: S1, S2 Respiratory: Yes: CTA Bilaterally Gastrointestinal: Yes: Soft Genitourinary: Yes: WNL Musculoskeletal: Yes: WNL Edema: No Neurological: Yes: Oriented Psychiatric: Yes: Oriented Labs: CBC, BMP 05/25/18 05:30 05/27/18 05:30 Problem List - Problems (1) Hypertensive emergency Code(s): I10 - ESSENTIAL (PRIMARY) HYPERTENSION (2) CKD (chronic kidney disease) Code(s): N18.9 - CHRONIC KIDNEY DISEASE, UNSPECIFIED Assessment/Plan Current Medications Generic Name Dose Route Start Last Admin Trade Name Escobar PRN Reason Stop Dose Admin Hydralazine HCl 25 mg 05/26/18 17:30 05/27/18 13:42 Apresoline - PO 25 mg TID [facility] Administration Labetalol HCl 300 mg 05/26/18 09:02 05/27/18 09:47 Normodyne - PO 300 mg BID [facility] Administration Nifedipine 90 mg 05/27/18 10:00 05/27/18 10:56 Procardia Xl - PO 90 mg DAILY [facility] Administration Impression 1. CKD 2. JENNIFFER 3. hypertensive urgency 4. hypokalemia 5. right side hydro 6. non compliance Plan - follow up stress test results - monitor renal function, likely progression of renal disease - rheum eval pending - monitor blood pressure - cont current meds Dr Cordova
--- NOTE | 2018-05-27 17:10 | PN ---
Teaching Attending Note Name of Resident: Fawad Snyder ATTENDING PHYSICIAN STATEMENT I saw and evaluated the patient. I reviewed the resident's note and discussed the case with the resident. I agree with the resident's findings and plan as documented. SUBJECTIVE: Patient seen and examined in the ICU. No acute events overnight. No CP or SOB. OBJECTIVE: Intake & Output 05/25/18 05/26/18 05/26/18 05/27/18 00:59 00:59 23:59 23:59 Intake Total Balance Weight Last Vital Signs Temp Pulse Resp BP Pulse Ox 98 F 66 20 163/112 H 95 05/27/18 13:40 05/27/18 13:40 05/27/18 13:40 05/27/18 13:40 05/27/18 09:00 Active Medications Hydralazine HCl (Apresoline -) 25 mg PO TID [facility] Last Admin: 05/27/18 13:42 Dose: 25 mg Labetalol HCl (Normodyne -) 300 mg PO BID [facility] Last Admin: 05/27/18 09:47 Dose: 300 mg Nifedipine (Procardia Xl -) 90 mg PO DAILY [facility] Last Admin: 05/27/18 10:56 Dose: 90 mg GENERAL: The patient is awake, alert, and fully oriented, in no acute distress. HEAD: Normal with no signs of trauma. EYES: sclera anicteric, conjunctiva clear. ENT: Ears normal, nares patent, oropharynx clear without exudates, moist mucous membranes. NECK: Trachea midline, full range of motion, supple. LUNGS: Breath sounds equal, clear to auscultation bilaterally, no wheezes, no crackles, no accessory muscle use. HEART: Regular rate and rhythm, S1, S2 without murmur, rub or gallop. ABDOMEN: Soft, nontender, nondistended, normoactive bowel sounds, no guarding, no rebound, no hepatosplenomegaly, no masses. EXTREMITIES: 2+ pulses, warm, well-perfused, no edema. NEUROLOGICAL: Non-focal PSYCH: Normal mood, normal affect. SKIN: Warm, dry, normal turgor, no rashes or lesions noted Laboratory Results - last 24 hr 05/27/18 05:30 Sodium 141 Potassium 3.6 Chloride 104 Carbon Dioxide 26 Anion Gap 11 BUN 51 H Creatinine 4.1 H Creat Clearance w eGFR 17.73 Random Glucose 82 Calcium 8.1 L Total Bilirubin 0.3 AST 32 ALT 28 Alkaline Phosphatase 66 Total Protein 6.2 L Albumin 3.0 L ASSESSMENT/PLAN: Hypertensive Emergency R/O Lupus Raynauds Syndrome CKD HTN (+) Troponin suspected to be due to demand ischemia Suspected Left atelectasis Titrate PO meds Cardiac testing ongoing VTE prophylaxis Cardiac Telemetry monitoring Dr Hernandez
[2018-05-27] MEDS ORDERED: LABETALOL HCL 5 MG/1 ML (100MG/20 ML VIAL) IVPUSH ONE (18:55)
[2018-05-27] MEDS ORDERED: LABETALOL HCL 100 MG TABLET (FP) PO ONE (18:56)
[2018-05-28 06:13] LABS: BASO % 0.8 % (0-2.0); EOS % 15.3 % (0-4.5); HEMATOCRIT 32.4 % (35.4-49); HEMOGLOBIN 11.6 GM/dL (11.7-16.9); LYMPH % 18.4 % (8-40); MCH 30.9 pg (25.7-33.7); MCHC 35.7 g/dl (32.0-35.9); MEAN CELL VOLUME 86.6 fl (80-96); MEAN PLT VOLUME 9.3 fl (7.5-11.1); MONO % 8.8 % (3.8-10.2); NEUT % 56.7 % (42.8-82.8); PLATELET COUNT 233 K/MM3 (134-434); RBC 3.74 M/mm3 (4.00-5.60); RDW 14.4 % (11.9-15.9); WHITE BLOOD COUNT 7.3 K/mm3 (4.0-10.0)
--- NOTE | 2018-05-28 06:39 | DS ---
Physical Examination Vital Signs: Vital Signs Temperature 98.4 F 05/28/18 06:00 Pulse Rate 60 05/28/18 06:00 Respiratory Rate 18 05/28/18 06:00 Blood Pressure 130/70 05/28/18 06:00 O2 Sat by Pulse Oximetry (%) 95 05/27/18 20:03 Labs: CBC, BMP 05/28/18 05:30 Discharge Summary Reason For Visit: HYPERTENSIVE URGENCY/SYSTEMIC LUUPUS ERYT Current Active Problems JENNIFFER (acute kidney injury) (Acute) High blood pressure (Acute) Hypertensive emergency (Acute) Lupus (systemic lupus erythematosus) (Acute) Raynaud phenomenon (Acute) Condition: Guarded - Instructions Referrals: Arcadio Gutierrez MD [Primary Care Provider] - - Home Medications Comprehensive Discharge Medication List: Ambulatory Orders Nifedipine [Procardia Xl] 90 mg PO DAILY 03/08/18 Labetalol HCl [Normodyne -] 300 mg PO BID #90 tablet 05/28/18 Nifedipine ER [Procardia XL -] 90 mg PO DAILY #30 tab.er.24 05/28/18 hydrALAZINE HCL [Apresoline -] 25 mg PO TID #90 tablet 05/28/18
[2018-05-28 07:18] LABS: ALBUMIN 2.9 g/dl (3.4-5.0); ALK PHOS 66 U/L (45-117); ANION GAP 8 MMOL/L (8-16); BILIRUBIN,TOTAL 0.3 mg/dL (0.2-1); BLOOD UREA NITROGEN 54 mg/dL (7-18); CHLORIDE 104 mmol/L (98-107); CO2 27 mmol/L (21-32); CREATININE 4.2 mg/dL (0.55-1.3); GLUCOSE,RANDOM 87 mg/dL (74-106); MAGNESIUM 2.4 mg/dL (1.8-2.4); POTASSIUM 3.4 mmol/L (3.5-5.1); SGOT/AST 33 U/L (15-37); SGPT/ALT 29 U/L (13-61); SODIUM 139 mmol/L (136-145); TOT PROT 6.2 g/dl (6.4-8.2)
--- NOTE | 2018-05-28 08:59 | PN ---
Progress Note, Physician Chief Complaint: stress test without ischemia TELE: NSR Undergoing renal duplex - Current Medication List Current Medications: Active Medications Labetalol HCl (Normodyne -) 300 mg PO BID [facility] Last Admin: 05/27/18 22:30 Dose: 300 mg Nifedipine (Procardia Xl -) 90 mg PO DAILY [facility] Last Admin: 05/27/18 10:56 Dose: 90 mg - Objective Vital Signs: Vital Signs Temperature 98.4 F 05/28/18 06:00 Pulse Rate 57 L 05/28/18 08:30 Respiratory Rate 20 05/28/18 08:30 Blood Pressure 143/101 H 05/28/18 08:30 O2 Sat by Pulse Oximetry (%) 95 05/27/18 20:03 Constitutional: Yes: No Distress Cardiovascular: Yes: Regular Rate and Rhythm Respiratory: Yes: CTA Bilaterally Gastrointestinal: Yes: Soft Edema: No Neurological: Yes: Alert, Oriented Labs: CBC, BMP 05/28/18 05:30 05/28/18 05:30 - ....Imaging EKG: Image Reviewed Assessment/Plan IMP: Acute renal failure Hypertensive urgency Small, stable ascending aortic aneurysm 4.0cm Raynaud's Phenomenon Hypercoag state Possible autoimmune disease REC: 1. Continue Nifedipine ER 90mg AM; add evening dose and Labetalol 300mg BID 2. Echo with evidence of hypertensive heart disease: LAE, LVH, aortic root dilatation. 3. Daily BMP, renal fx stable, renal following 4. Suspect the borderline elevation in TnI is due to chronic HTN heart disease, diastolic dysfx and CKD. Nuclear stress without ischemia
[2018-05-28] MEDS: LABETALOL HCL 100 MG TABLET (FP) PO SCH ×2 (10:15→21:49)
[2018-05-28] MEDS: NIFEdipine E.R. 90 MG TABLET (FP) PO SCH (10:15)
[2018-05-28] MEDS ORDERED: POTASSIUM CHLORIDE TABS 20 MEQ TABLET.ER (FP) PO ONE ×2 (11:50→12:30)
--- NOTE | 2018-05-28 12:27 | PN ---
Teaching Attending Note Name of Resident: Fawad Snyder ATTENDING PHYSICIAN STATEMENT I saw and evaluated the patient. I reviewed the resident's note and discussed the case with the resident. I agree with the resident's findings and plan as documented. SUBJECTIVE: Patient seen and examined in the ICU. No acute events overnight. No CP or SOB. OBJECTIVE: Intake & Output 05/26/18 05/26/18 05/27/18 05/28/18 00:59 23:59 23:59 23:59 Intake Total 1080 100 Balance 1080 100 Weight Last Vital Signs Temp Pulse Resp BP Pulse Ox 98.1 F 75 20 150/98 95 05/28/18 10:02 05/28/18 10:02 05/28/18 10:02 05/28/18 10:02 05/28/18 09:00 Active Medications Labetalol HCl (Normodyne -) 300 mg PO BID [facility] Last Admin: 05/28/18 10:15 Dose: 300 mg Nifedipine (Procardia Xl -) 90 mg PO DAILY [facility] Last Admin: 05/28/18 10:15 Dose: 90 mg Nifedipine (Procardia Xl -) 30 mg PO DAILY@1800 [facility] Potassium Chloride (K-Dur -) 20 meq PO ONCE ONE Stop: 05/28/18 12:31 GENERAL: The patient is awake, alert, and fully oriented, in no acute distress. HEAD: Normal with no signs of trauma. EYES: sclera anicteric, conjunctiva clear. ENT: Ears normal, nares patent, oropharynx clear without exudates, moist mucous membranes. NECK: Trachea midline, full range of motion, supple. LUNGS: Breath sounds equal, clear to auscultation bilaterally, no wheezes, no crackles, no accessory muscle use. HEART: Regular rate and rhythm, S1, S2 without murmur, rub or gallop. ABDOMEN: Soft, nontender, nondistended, normoactive bowel sounds, no guarding, no rebound, no hepatosplenomegaly, no masses. EXTREMITIES: 2+ pulses, warm, well-perfused, no edema. NEUROLOGICAL: Non-focal PSYCH: Normal mood, normal affect. SKIN: Warm, dry, normal turgor, no rashes or lesions noted Laboratory Results - last 24 hr 05/26/18 05/28/18 05/28/18 09:46 05:30 05:30 WBC 7.3 RBC 3.74 L Hgb 11.6 L Hct 32.4 L MCV 86.6 MCH 30.9 MCHC 35.7 RDW 14.4 Plt Count 233 MPV 9.3 Absolute Neuts (auto) 4.2 Neutrophils % 56.7 Lymphocytes % 18.4 Monocytes % 8.8 Eosinophils % 15.3 H Basophils % 0.8 Nucleated RBC % 0 Sodium 139 Potassium 3.4 L Chloride 104 Carbon Dioxide 27 Anion Gap 8 BUN 54 H Creatinine 4.2 H Creat Clearance w eGFR 17.24 Random Glucose 87 Calcium 8.0 L Phosphorus 6.0 H Magnesium 2.4 Total Bilirubin 0.3 AST 33 ALT 29 Alkaline Phosphatase 66 Troponin I 0.07 H Total Protein 6.2 L Albumin 2.9 L Cortisol AM Sample 10.0 ASSESSMENT/PLAN: Hypertensive Emergency R/O Lupus Raynauds Syndrome CKD HTN (+) Troponin suspected to be due to demand ischemia Suspected Left atelectasis Titrate PO meds Cardiac testing ongoing D/C planning Dr Hernandez
--- NOTE | 2018-05-28 12:35 | PN ---
Progress Note, Physician Chief Complaint: Hypertensive emergency CKD History of Present Illness: NAD BP still mildly elevated Being followed by Cardiology On Nifidepine and labetalol No lupus as per mother - Current Medication List Current Medications: Active Medications Labetalol HCl (Normodyne -) 300 mg PO BID [facility] Last Admin: 05/28/18 10:15 Dose: 300 mg Nifedipine (Procardia Xl -) 90 mg PO DAILY [facility] Last Admin: 05/28/18 10:15 Dose: 90 mg Nifedipine (Procardia Xl -) 30 mg PO DAILY@1800 [facility] - Objective Vital Signs: Vital Signs Temperature 98.1 F 05/28/18 10:02 Pulse Rate 63 05/28/18 12:28 Respiratory Rate 20 05/28/18 12:28 Blood Pressure 156/105 H 05/28/18 12:28 O2 Sat by Pulse Oximetry (%) 95 05/28/18 09:00 Labs: CBC, BMP 05/28/18 05:30 05/28/18 05:30
--- NOTE | 2018-05-28 14:12 | CONSULT ---
Consult Consult Specialty:: Rheumatology - History of Present Illness History of Present Illness: 27 year old male with a PMH significant for possible lupus, Raynaud Syndrome, HTN, CKD admitted with uncontrolled BP and progression of kidney disease. The patient reports he has had progressive headache and neck pain for the last several months sharp, shooting pain down his right leg. He reports occasional light headiness, blurry vision and chest pain. Occasional mild intermitten joint pain in knees and intermittent rash in face. On admission his BP was 192/ 126. Last November his creatinine was 1.6 and on admission it was 4.2. I spoke with his railroad watchman, Dr. Wilson who indicated he is not compliant with his medications and follow up. Questionable lupus. . I saw the patient in my office from July 2013 to August 2015. Afterwards he was seen by other rheumatologists. The patient has history of Raynaud's phenomenon since 2009 and mild malar rash since 2011. Laboratory work-up from July 2013 revealed Eosinophils 840, creatinine 1.07, AST 65 and ALT 56. Serology for hepatitis B and C was negative. Urinalysis had blood 2+ and protein trace. . CK was 2251 and aldolase 29.4. JAMAAL was 1:320 with nucleolar pattern and anti-cardiolipin antibody IgM positive (18). All other serology was negative. Work-up from 11/10/17 revealed anti-Sm, anti-Sm/RESEARCH [employer] ANALYTICS MANAGER , anti-SCL-70, anti-centromere and RNA polymerase III negative. 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 Immunofluorescence was negative. The most likely diagnosis are malignant hypertension or scleroderma - History Source History Provided By: Patient, Medical Record - Past Medical History Cardio/Vascular: Yes: HTN Renal/: Yes: Renal Inusuff Rheumatology: Yes: Other (Raynaud's phenomenon) - Alcohol/Substance Use Hx Alcohol Use: No - Smoking History Smoking history: Never smoked Have you smoked in the past 12 months: No Aproximately how many cigarettes per day: 0 Home Medications - Allergies Allergies/Adverse Reactions: Allergies Allergy/AdvReac Type Severity Reaction Status Date / Time banana Allergy Severe Verified 05/23/18 15:08 - Home Medications Home Medications: Ambulatory Orders Nifedipine [Procardia Xl] 90 mg PO DAILY 03/08/18 Labetalol HCl [Normodyne -] 300 mg PO BID #90 tablet 05/28/18 Nifedipine ER [Procardia XL -] 90 mg PO DAILY #30 tab.er.24 05/28/18 hydrALAZINE HCL [Apresoline -] 25 mg PO TID #90 tablet 05/28/18 Review of Systems - Review of Systems Constitutional: reports: No Symptoms Eyes: reports: No Symptoms HENT: reports: No Symptoms Neck: reports: No Symptoms Cardiovascular: reports: Chest Pain Respiratory: reports: No Symptoms Gastrointestinal: reports: No Symptoms Musculoskeletal: reports: Other (Occasional arthralgia in shoulders and knees.) Integumentary: reports: Other (Intermittent malar rash in face,) Physical Exam Vital Signs: Vital Signs Temperature 98.1 F 05/28/18 10:02 Pulse Rate 63 05/28/18 12:28 Respiratory Rate 20 05/28/18 12:28 Blood Pressure 156/105 H 05/28/18 12:28 O2 Sat by Pulse Oximetry (%) 95 05/28/18 09:00 Constitutional: Yes: No Distress Eyes: Yes: WNL HENT: Yes: WNL Neck: Yes: WNL Cardiovascular: Yes: WNL Respiratory: Yes: WNL Gastrointestinal: Yes: WNL Musculoskeletal: Yes: WNL Integumentary: Yes: Other (Normal. There was no increased skin binding (no sclerodactily or proximal scleroderma), telangiectasea, calcinosis or ischemic changes in finger tips.) Labs: CBC, BMP 05/28/18 05:30 05/28/18 05:30 Problem List - Problems (1) CKD (chronic kidney disease) Assessment/Plan: The patient has history of JAMAAL positive and in the past mild elevation of anticardiolipin IgM, Raynaud's and intermittent rash in face. Based on the fact that other serology was negative, there is no other organ involvement and the kidney biopsy showed only thrombotic microangiopathy, the patient does not have lupus or other connective tissue disease. He has progressive kidney disease related to hypertension. Code(s): N18.9 - CHRONIC KIDNEY DISEASE, UNSPECIFIED
--- NOTE | 2018-05-28 14:20 | PN ---
Progress Note, Physician History of Present Illness: Pt seen and examined at bedside. He is awake and alert. He is eager to go home. His mother is at bedside. I discussed the progression of kidney disease with him. He promises to take his meds. - Current Medication List Current Medications: Active Medications Labetalol HCl (Normodyne -) 300 mg PO BID TRES Last Admin: 05/28/18 10:15 Dose: 300 mg Nifedipine (Procardia Xl -) 90 mg PO DAILY TRES Last Admin: 05/28/18 10:15 Dose: 90 mg Nifedipine (Procardia Xl -) 30 mg PO DAILY@1800 TRES - Objective Vital Signs: Vital Signs Temperature 98.1 F 05/28/18 10:02 Pulse Rate 63 05/28/18 12:28 Respiratory Rate 20 05/28/18 12:28 Blood Pressure 156/105 H 05/28/18 12:28 O2 Sat by Pulse Oximetry (%) 95 05/28/18 09:00 Constitutional: Yes: Calm Eyes: Yes: Conjunctiva Clear HENT: Yes: Atraumatic Neck: Yes: Supple Cardiovascular: Yes: S1, S2 Respiratory: Yes: CTA Bilaterally Gastrointestinal: Yes: Normal Bowel Sounds, Soft Genitourinary: Yes: WNL Musculoskeletal: Yes: WNL Edema: No Neurological: Yes: Oriented Psychiatric: Yes: Oriented Labs: CBC, BMP 05/28/18 05:30 05/28/18 05:30 Problem List - Problems (1) Hypertensive emergency Code(s): I10 - ESSENTIAL (PRIMARY) HYPERTENSION (2) CKD (chronic kidney disease) Code(s): N18.9 - CHRONIC KIDNEY DISEASE, UNSPECIFIED Assessment/Plan Current Medications Generic Name Dose Route Start Last Admin Trade Name Escobar PRN Reason Stop Dose Admin Labetalol HCl 300 mg 05/26/18 09:02 05/28/18 10:15 Normodyne - PO 300 mg BID TRES Administration Nifedipine 90 mg 05/27/18 10:00 05/28/18 10:15 Procardia Xl - PO 90 mg DAILY TRES Administration Nifedipine 30 mg 05/28/18 18:00 Procardia Xl - PO DAILY@1800 TRES Impression 1. CKD 2. JENNIFFER 3. hypertensive urgency 4. hypokalemia 5. right side hydro 6. non compliance Plan - encourage compliance with meds - recommend close follow up with renal - recommend transplant eval as well - discussed with pt and his mother at length - rheum input appreciated, discussed with them Dr Cordova
--- NOTE | 2018-05-28 15:24 | PN ---
Physical Exam: SUBJECTIVE: Patient seen and examined at bedside. He has no current complaints. Awaiting transfer. He had an episode of asymptomatic HTN last night where his MAP was 127. He denies chest pain, headache, blurry vision, SOB, difficulty breathing, back pain. or abdominal pain. OBJECTIVE: Vital Signs Period Temp Pulse Resp BP Sys/Michele Pulse Ox Last 24 Hr 98.1 F-99 F 57-78 17-20 130-171/70-120 95-95 GENERAL: The patient is awake, alert, and fully oriented, in no acute distress. HEAD: Normal with no signs of trauma. EYES: PERRL, extraocular movements intact, sclera anicteric, conjunctiva clear. No ptosis. ENT: Ears normal, nares patent, oropharynx clear without exudates, moist mucous membranes. NECK: Trachea midline, full range of motion, supple. LUNGS: Breath sounds equal, clear to auscultation bilaterally, no wheezes, no crackles, no accessory muscle use. HEART: Regular rate and rhythm, S1, S2 without murmur, rub or gallop. ABDOMEN: Soft, nontender, nondistended, normoactive bowel sounds, no guarding, no rebound, no hepatosplenomegaly, no masses. EXTREMITIES: 2+ pulses, warm, well-perfused, no edema. NEUROLOGICAL: Cranial nerves II through XII grossly intact. Normal speech, normal gait. PSYCH: Normal mood, normal affect. SKIN: Warm, dry, normal turgor, no rashes or lesions noted Laboratory Results - last 24 hr 05/26/18 05/28/18 05/28/18 09:46 05:30 05:30 WBC 7.3 RBC 3.74 L Hgb 11.6 L Hct 32.4 L MCV 86.6 MCH 30.9 MCHC 35.7 RDW 14.4 Plt Count 233 MPV 9.3 Absolute Neuts (auto) 4.2 Neutrophils % 56.7 Lymphocytes % 18.4 Monocytes % 8.8 Eosinophils % 15.3 H Basophils % 0.8 Nucleated RBC % 0 Sodium 139 Potassium 3.4 L Chloride 104 Carbon Dioxide 27 Anion Gap 8 BUN 54 H Creatinine 4.2 H Creat Clearance w eGFR 17.24 Random Glucose 87 Calcium 8.0 L Phosphorus 6.0 H Magnesium 2.4 Total Bilirubin 0.3 AST 33 ALT 29 Alkaline Phosphatase 66 Troponin I 0.07 H Total Protein 6.2 L Albumin 2.9 L Cortisol AM Sample 10.0 Active Medications Generic Name Dose Route Start Last Admin Trade Name Freq PRN Reason Stop Dose Admin Labetalol HCl 300 mg 05/26/18 09:02 05/28/18 10:15 Normodyne - PO 300 mg BID TRES Administration Nifedipine 90 mg 05/27/18 10:00 05/28/18 10:15 Procardia Xl - PO 90 mg DAILY TRES Administration Nifedipine 30 mg 05/28/18 18:00 Procardia Xl - PO DAILY@1800 [facility] ASSESSMENT/PLAN: Assessment: 27 year old male with a significant past medical history of possible Lupus, Raynaud Syndrome, CKD and HTN presented to the ED with elevated blood pressure and was admitted to the ICU for close monitoring of blood pressure. he had Hypertensive urency/emerg. BP stable now. He has been stable for transfer for 3 days now. Will continue current management. Patient has been switched to his home med routine. lebatalol, hydralazine, nifedipine. He had an episode of asymptomatic HTN last night. We spoke with Dr. Earl who reccomended IV labetalol and taking the PO med dose early. Plan: Cardio Hypertensive emergency Switched from Iv to PO Labetolol IV labetalol PRN. Avoid drip. Renal Creatinine 4.2 today, BUN 54. Undergoing evaluation for CKD. Patient's mother reports he had a kidney biopsy at [place] which was inconclusive and ruled out he doesn't have lupus nephritis Avoid nephrotoxic drugs Renal diet Respiratory Abd/Pelvis CT showed Mild focal opacity within the inferior lingula may represent focal atelectasis vs an infiltrate. Rheumatology Has a h/o possible Lupus, diagnosed > 4 years ago. F/up with Dr. Joshi as outpatient. Not on any medication FEN Not on IV fluids, tolerating PO well Will send electrolytes and replete PRN Renal diet Prophylaxis For DVT: On SCD's. For GI: Not indicated Code Status Full Code Dispo: Patient is transfered to Tele. Visit type - Emergency Visit Emergency Visit: Yes ED Registration Date: 05/23/18 Care time: The patient presented to the Emergency Department on the above date and was hospitalized for further evaluation of their emergent condition. - New Patient This patient is new to me today: No - Critical Care Critical Care patient: Yes Total Critical Care Time (in minutes): 36 Critical Care Statement: The care of this patient involved high complexity decision making to prevent further life threatening deterioration of the patient 's condition and/or to evaluate & treat vital organ system(s) failure or risk of failure.
[2018-05-28] MEDS ORDERED: NIFEdipine E.R. 30 MG TABLET (FP) PO SCH (18:00)
[2018-05-29 06:24] LABS: BASO % 1.2 % (0-2.0); EOS % 15.8 % (0-4.5); HEMATOCRIT 34.7 % (35.4-49); HEMOGLOBIN 12.2 GM/dL (11.7-16.9); LYMPH % 19.1 % (8-40); MCH 30.6 pg (25.7-33.7); MCHC 35.2 g/dl (32.0-35.9); MEAN CELL VOLUME 86.8 fl (80-96); MEAN PLT VOLUME 8.9 fl (7.5-11.1); MONO % 7.5 % (3.8-10.2); NEUT % 56.4 % (42.8-82.8); PLATELET COUNT 244 K/MM3 (134-434); RBC 3.99 M/mm3 (4.00-5.60); RDW 14.5 % (11.9-15.9); WHITE BLOOD COUNT 6.8 K/mm3 (4.0-10.0)
[2018-05-29 06:54] LABS: ALK PHOS 64 U/L (45-117); ANION GAP 9 MMOL/L (8-16); BILIRUBIN,TOTAL 0.3 mg/dL (0.2-1); BLOOD UREA NITROGEN 53 mg/dL (7-18); CHLORIDE 107 mmol/L (98-107); CO2 25 mmol/L (21-32); CREATININE 4.2 mg/dL (0.55-1.3); GLUCOSE,RANDOM 85 mg/dL (74-106); MAGNESIUM 2.4 mg/dL (1.8-2.4); POTASSIUM 3.8 mmol/L (3.5-5.1); SGOT/AST 30 U/L (15-37); SGPT/ALT 28 U/L (13-61); SODIUM 141 mmol/L (136-145); TOT PROT 6.4 g/dl (6.4-8.2)
--- NOTE | 2018-05-29 09:12 | PN ---
Progress Note, Physician Chief Complaint: no CP, SOB TELE: NSR - Current Medication List Current Medications: Active Medications Doxazosin Mesylate (Cardura -) 2 mg PO DAILY [facility] Labetalol HCl (Normodyne -) 300 mg PO BID TRES Nifedipine (Procardia Xl -) 30 mg PO DAILY@1800 TRES Last Admin: 05/28/18 17:11 Dose: 30 mg Nifedipine (Procardia Xl -) 90 mg PO DAILY [facility] - Objective Vital Signs: Vital Signs Temperature 97.5 F L 05/29/18 05:00 Pulse Rate 63 05/29/18 05:00 Respiratory Rate 17 05/29/18 05:00 Blood Pressure 142/94 05/29/18 05:00 O2 Sat by Pulse Oximetry (%) 99 05/28/18 21:00 Constitutional: Yes: Calm Cardiovascular: Yes: Regular Rate and Rhythm Respiratory: Yes: CTA Bilaterally Gastrointestinal: Yes: Soft Edema: No Neurological: Yes: Alert, Oriented Labs: CBC, BMP 05/29/18 05:30 05/29/18 05:30 - ....Imaging EKG: Image Reviewed Assessment/Plan IMP: Acute renal failure Hypertensive urgency Small, stable ascending aortic aneurysm 4.0cm Raynaud's Phenomenon Hypercoag state Possible autoimmune disease REC: 1. Continue Nifedipine ER, Labetalol BID. Cardura added as BP remains slightly above goal. Cannot add Aldactone due to GFR. 2. Echo with evidence of hypertensive heart disease: LAE, LVH, aortic root dilatation. 3. Renal F/u; Rheum input noted. 4. Suspect the borderline elevation in TnI is due to chronic HTN heart disease, diastolic dysfx and CKD. Nuclear stress without ischemia Patient instructed to avoid competitive sports and weight lifting. Can d/c tele.
--- NOTE | 2018-05-29 09:18 | DS ---
Physical Examination Vital Signs: Vital Signs Temperature 97.5 F L 05/29/18 05:00 Pulse Rate 63 05/29/18 05:00 Respiratory Rate 17 05/29/18 05:00 Blood Pressure 142/94 05/29/18 05:00 O2 Sat by Pulse Oximetry (%) 99 05/28/18 21:00 Cardiovascular: Yes: Regular Rate and Rhythm Respiratory: Yes: Regular, CTA Bilaterally Gastrointestinal: Yes: Normal Bowel Sounds, Soft Neurological: Yes: Alert, Oriented Labs: CBC, BMP 05/29/18 05:30 05/29/18 05:30 Discharge Summary Reason For Visit: HYPERTENSIVE URGENCY/SYSTEMIC LUUPUS ERYT Current Active Problems JENNIFFER (acute kidney injury) (Acute) High blood pressure (Acute) Hypertensive emergency (Acute) Lupus (systemic lupus erythematosus) (Acute) Raynaud phenomenon (Acute) Hospital Course: - Problems (1) Hypertensive emergency Assessment/Plan: - Continue Nifedipine ER 90mg Daily - PO Labetalol increase 300 bid -add cardura 2 mg daily -Echo with evidence of hypertensive heart disease: LAE, LVH, aortic root dilatation. -CARDIO AND RENAL ON BOARD -renal artery us--no evidence of stenosis Code(s): I10 - ESSENTIAL (PRIMARY) HYPERTENSION (2) Lupus (systemic lupus erythematosus) Assessment/Plan: rheumotology The patient has history of JAMAAL positive and in the past mild elevation of anticardiolipin IgM, Raynaud's and intermittent rash in face. Based on the fact that other serology was negative, there is no other organ involvement and the kidney biopsy showed only thrombotic microangiopathy, the patient does not have lupus or other connective tissue disease. He has progressive kidney disease related to hypertension. Code(s): M32.9 - SYSTEMIC LUPUS ERYTHEMATOSUS, UNSPECIFIED Qualifiers: Systemic lupus erythematosus type: unspecified Systemic lupus erythematosus organ involvement: unspecified Qualified Code(s): M32.9 - Systemic lupus erythematosus, unspecified (3) JENNIFFER (acute kidney injury)--on chronic Assessment/Plan: -PER RENAl -MONITOR--stable at this time Code(s): N17.9 - ACUTE KIDNEY FAILURE, UNSPECIFIED Condition: Improved - Instructions Referrals: Arcadio Gutierrez MD [Primary Care Provider] - 1 Week Disposition: HOME - Home Medications Comprehensive Discharge Medication List: Ambulatory Orders Nifedipine [Procardia Xl] 90 mg PO DAILY 03/08/18 Labetalol HCl [Normodyne -] 300 mg PO BID #90 tablet 05/28/18 Nifedipine ER [Procardia XL -] 90 mg PO DAILY #30 tab.er.24 05/28/18 Doxazosin Mesylate [Cardura -] 2 mg PO DAILY #30 tablet 05/29/18
[2018-05-29 09:51] VITALS: BP 152/95; PULSE 60; TEMP 97.7
[2018-05-29] MEDS ORDERED: DOXAZOSIN MESYLATE 2 MG TABLET (FP) PO SCH (10:00)
[2018-05-29] MEDS ORDERED: NIFEdipine E.R. 90 MG TABLET (FP) PO SCH (10:00)
[2018-05-29] MEDS ORDERED: LABETALOL HCL 100 MG TABLET (FP) PO SCH (10:00)
[2018-05-29] MEDS ORDERED: PT OWN MED DRAWER 7, Y5N ONE ×2 (10:08→10:13)
--- NOTE | 2018-05-29 11:00 | PN ---
Progress Note, Physician History of Present Illness: Pt seen and examined at bedside. He is awake and alert. He is eager to go home. He denies shortness of breath. - Objective Vital Signs: Vital Signs Temperature 97.7 F 05/29/18 09:00 Pulse Rate 60 05/29/18 09:00 Respiratory Rate 17 05/29/18 09:00 Blood Pressure 152/95 05/29/18 09:00 O2 Sat by Pulse Oximetry (%) 99 05/29/18 09:00 Constitutional: Yes: Calm Eyes: Yes: Conjunctiva Clear HENT: Yes: Atraumatic Neck: Yes: Supple Cardiovascular: Yes: S1, S2 Respiratory: Yes: CTA Bilaterally Gastrointestinal: Yes: Normal Bowel Sounds, Soft Genitourinary: Yes: WNL Musculoskeletal: Yes: WNL Edema: No Neurological: Yes: Oriented Psychiatric: Yes: Oriented Labs: CBC, BMP 05/29/18 05:30 05/29/18 05:30 Problem List - Problems (1) Hypertensive emergency Code(s): I10 - ESSENTIAL (PRIMARY) HYPERTENSION (2) CKD (chronic kidney disease) Code(s): N18.9 - CHRONIC KIDNEY DISEASE, UNSPECIFIED Assessment/Plan Selected Entries 05/29/18 05/29/18 05/29/18 01:29 05:00 09:00 Blood Pressure 145/79 142/94 152/95 Impression 1. CKD 2. JENNIFFER 3. hypertensive urgency 4. hypokalemia 5. right side hydro 6. non compliance Plan - potassium improved - cardio input appreciated - discussed compliance with meds at length - pt will follow with Dr Carito Cordova
== END 2018-05-29 10:30 | disposition home or self-care (01) | DRG 683 ==
LOC: JER 14:59 → JERBED 16:41 → JICU 05-24 16:32 → J8W 05-28 18:17 → J4W 05-28 18:26
PROVIDERS: ADMIT Internal Medicine; ATTEND Family Medicine
DX: N17.9 Acute kidney failure, unspecified (principal); I24.8 Other forms of acute ischemic heart disease; D68.59 Other primary thrombophilia; J98.11 Atelectasis; I16.0 Hypertensive urgency; N13.30 Unspecified hydronephrosis; I73.00 Raynaud's syndrome without gangrene; M32.9 Systemic lupus erythematosus, unspecified; I12.9 Hypertensive chronic kidney disease with stage 1 through stage 4 chronic kidney disease, or unspecified chronic kidney disease; N18.9 Chronic kidney disease, unspecified; I71.2 Thoracic aortic aneurysm, without rupture; E87.6 Hypokalemia; Z91.14 Patient's other noncompliance with medication regimen; M25.519 Pain in unspecified shoulder; M25.562 Pain in left knee; M25.561 Pain in right knee; R21 Rash and other nonspecific skin eruption
CPT/HCPCS: 36415; 71045-TC-FY; 71250-TC; 74176-TC; 76775-TC; 76856-TC; 78452-TC; 80048; 80053; 81003; 81015; 82533; 82550; 82553; 83735; 84100; 84484; 85025; 93005; 93010; 93017; 93306-TC; 93976; 99285-25; A9502; J2785

== ENCOUNTER 2018-08-05 14:16 | Inpatient (IN) | payer BC ==
--- NOTE | 2018-08-05 14:37 | PDOC ---
Rapid Medical Evaluation Chief Complaint: Blood Pressure Problem Time Seen by Provider: 08/05/18 14:34 Medical Evaluation: Allergies Allergy/AdvReac Type Severity Reaction Status Date / Time banana Allergy Severe Verified 05/23/18 15:08 08/05/18 14:35 I have performed a brief in-person evaluation of this patient. The patient presents with a chief complaint of:HTN= headache Pertinent physical exam findings: pale / nervous I have ordered the following: taken into ER The patient will proceed to the ED for further evaluation. Discharge Disposition - Referrals Referrals: Arcadio Gutierrez MD [Primary Care Provider] - - Patient Instructions - Post Discharge Activity
--- NOTE | 2018-08-05 15:49 | PDOC ---
History of Present Illness - General Chief Complaint: Blood Pressure Problem Stated Complaint: Blood Pressure Problem Time Seen by Provider: 08/05/18 14:34 - History of Present Illness Initial Comments: The patient is a 27M w/ a history of , CKD, and HTN who presents for evaluation of acute HTN w/ associated BRADFORD for 1 day. The patient reports that he ran out of his labetalol 3d ago. He went to the pharmacy, who was out of the medication, and he has not had it since. He states that he checks his BP at home, which is how he knew it was high. He reports that his only associated symptoms are a current, global, non-radiating, throbbing BRADFORD and intermittent L flank pain that does not radiate. He denies a history of renal stones. He tried taking Tylenol 650mg PO just prior to arrival with little relief so far. Denies fevers/chills, vision changes, chest pain, SOB, abdominal pain, N/V/C/D, or changes in sensation 08/05/18 16:01 Past History - Past Medical History Allergies/Adverse Reactions: Allergies Allergy/AdvReac Type Severity Reaction Status Date / Time banana Allergy Severe Verified 08/05/18 14:38 Home Medications: Ambulatory Orders Nifedipine [Procardia Xl] 90 mg PO DAILY 03/08/18 Labetalol HCl [Normodyne -] 300 mg PO BID #90 tablet 05/28/18 COPD: No CHF: No DVT: No Disorders: Yes (ckd) HTN: Yes - Suicide/Smoking/Psychosocial Hx Smoking Status: No Smoking History: Current every day smoker Have you smoked in the past 12 months: No Number of Cigarettes Smoked Daily: 3 Information on smoking cessation initiated: No Hx Alcohol Use: No Drug/Substance Use Hx: Yes (weed) Substance Use Type: None Hx Substance Use Treatment: No Review of Systems - Review of Systems Able to Perform ROS?: Yes Comments:: GENERAL/CONSTITUTIONAL: No fever or chills. No weakness HEAD, EYES, EARS, NOSE AND THROAT: No change in vision. No ear pain or discharge. No sore throat CARDIOVASCULAR: No chest pain or shortness of breath RESPIRATORY: Denies cough, hemoptysis GASTROINTESTINAL: No nausea, vomiting, diarrhea or constipation GENITOURINARY: No dysuria, frequency, or change in urination MUSCULOSKELETAL: No joint or muscle swelling or pain. No neck pain SKIN: No rash NEUROLOGIC: No vertigo, loss of consciousness, or change in strength/sensation ENDOCRINE: No increased thirst. No abnormal weight change HEMATOLOGIC/LYMPHATIC: No anemia, easy bleeding, or history of blood clots ALLERGIC/IMMUNOLOGIC: No hives or skin allergy 08/05/18 15:48 Is the patient limited Citizen [place] proficient: No *Physical Exam - Vital Signs Last Vital Signs Temp Pulse Resp BP Pulse Ox 98 F 85 16 200/149 H 100 08/05/18 14:39 08/05/18 14:39 08/05/18 14:39 08/05/18 14:39 08/05/18 14:39 - Physical Exam Comments: GENERAL: Awake, alert, and fully oriented, in no acute distress HEAD: No signs of trauma, normocephalic, atraumatic EYES: PERRLA, EOMI, sclera anicteric, conjunctiva clear ENT: Hearing grossly normal, nares patent, oropharynx clear without exudates. Moist mucosa LUNGS: No distress, speaks full sentences, clear to auscultation bilaterally HEART: Regular rate and rhythm, normal S1 and S2, no murmurs appreciated, peripheral pulses normal and equal bilaterally ABDOMEN: Soft, nontender, normoactive bowel sounds. No guarding, no rebound EXTREMITIES : Normal inspection, Normal range of motion, no edema. No clubbing or cyanosis NEUROLOGICAL: Cranial nerves II through XII grossly intact. Normal speech, normal gait, no focal sensorimotor deficits SKIN: Warm, Dry, normal turgor, no rashes or lesions noted 08/05/18 15:48 Moderate Sedation - Procedure Monitoring Vital Signs: Procedure Monitoring Vital Signs Temperature 98 F 08/05/18 14:39 Pulse Rate 85 08/05/18 14:39 Respiratory Rate 16 08/05/18 14:39 Blood Pressure 200/149 H 08/05/18 14:39 O2 Sat by Pulse Oximetry (%) 100 08/05/18 14:39 ED Treatment Course - LABORATORY CBC & Chemistry Diagram: 08/05/18 16:15 08/05/18 16:15 Medical Decision Making - Medical Decision Making The patient is a 27M w/ a history of SLE, CKD, and HTN who presents for evaluation of acute HTN in setting of not taking home labetalol for last three days w/ associated BRADFORD and L flank pain Ddx: HTN, HTN emergency ED Course Patient took Tylenol 650mg PO just prior to presentation Will give Tylenol 325mg PO once Labetalol 300mg PO once (home dose) CMP, CBC, Cardiac enzymes 08/05/18 16:20 Plan for admission BP improved s/p labetalol BRADFORD moderately improved POCUS Renal: no hydronephrosis noted 08/05/18 18:05 Mildly elevated trop and Cr 4 No leukocytosis No anemia LFTs wnl Lytes wnl Dispo: admit to Tele 08/05/18 18:49 *DC/Admit/Observation/Transfer Diagnosis at time of Disposition: Lupus (systemic lupus erythematosus) Qualifiers: Systemic lupus erythematosus type: unspecified Systemic lupus erythematosus organ involvement: unspecified Qualified Code(s): M32.9 - Systemic lupus erythematosus, unspecified CKD (chronic kidney disease) Qualifiers: Chronic kidney disease stage: unspecified stage Qualified Code(s): N18.9 - Chronic kidney disease, unspecified High blood pressure Qualifiers: Hypertension type: unspecified Qualified Code(s): I10 - Essential (primary) hypertension - Discharge Dispostion Condition at time of disposition: Stable Decision to Admit order: Yes - Referrals Referrals: Arcadio Gutierrez MD [Primary Care Provider] - - Patient Instructions - Post Discharge Activity
[2018-08-05] MEDS ORDERED: ACETAMINOPHEN 325 MG TABLET (FP) PO ONE ×2 (16:04→16:20)
[2018-08-05] MEDS ORDERED: LABETALOL HCL 100 MG TABLET (FP) PO ONE (16:04)
[2018-08-05] MEDS ORDERED: ACETAMINOPHEN 325 MG TABLET (FP) ONE (16:08)
[2018-08-05 16:44] LABS: BASO % 1.2 % (0-2.0); EOS % 16.7 % (0-4.5); HEMATOCRIT 37.5 % (35.4-49); HEMOGLOBIN 13.3 GM/dL (11.7-16.9); LYMPH % 15.2 % (8-40); MCH 30.8 pg (25.7-33.7); MCHC 35.5 g/dl (32.0-35.9); MEAN CELL VOLUME 86.8 fl (80-96); MEAN PLT VOLUME 9.1 fl (7.5-11.1); MONO % 8.6 % (3.8-10.2); NEUT % 58.3 % (42.8-82.8); PLATELET COUNT 207 K/MM3 (134-434); RBC 4.32 M/mm3 (4.00-5.60); RDW 13.9 % (11.9-15.9); WHITE BLOOD COUNT 7.9 K/mm3 (4.0-10.0)
[2018-08-05 17:18] LABS: ALBUMIN 3.8 g/dl (3.4-5.0); ALK PHOS 81 U/L (45-117); ANION GAP 9 MMOL/L (8-16); BILIRUBIN,TOTAL 0.6 mg/dL (0.2-1); BLOOD UREA NITROGEN 51 mg/dL (7-18); CALCIUM 8.8 mg/dL (8.5-10.1); CHLORIDE 103 mmol/L (98-107); CO2 25 mmol/L (21-32); CREATININE 4.1 mg/dL (0.55-1.3); GLUCOSE,RANDOM 82 mg/dL (74-106); SGOT/AST 33 U/L (15-37); SGPT/ALT 33 U/L (13-61); SODIUM 138 mmol/L (136-145); TOT PROT 7.7 g/dl (6.4-8.2)
--- NOTE | 2018-08-05 17:40 | PDOC ---
Attending Attestation - Resident Resident Name: Jonathan Bhakta - ED Attending Attestation I have performed the following: I have examined & evaluated the patient, The case was reviewed & discussed with the resident, I agree w/resident's findings & plan - [facility] HPI: 08/05/18 17:38 The patient is a 27 year old male, with a significant past medical history of raynaud's, hypertension, and chronic kidney problems, who presents to the emergency department with, 1 day of elevated blood pressure with associated headache. As per patient, he ran out of his Labetalol 3 days ago and has not been able to obtain it from her pharmacy. He notes multiple elevated at home blood pressure readings. He describes his headache as diffuse, nonradiating, throbbing headache. Patient also endorses an intermittent left flank pain. of note he has been r/o for Lupus after renal biopsy and extensive eval. admits to poor compliance with meds and increased salty intake. He denies any recent fevers, chills, or dizziness. He denies any recent nausea, vomit, diarrhea or constipation. He denies any recent chest pain or shortness of breath. He denies any recent dysuria, frequency, urgency or hematuria. No sick contacts or travel. No new changes in medications. Allergies: Banana Past Medical History: raynaud's, hypertension, lupus, and chronic kidney problems Social history: Lives with family. No smoking. No alcohol. No illicit drugs. Surgical history: None 08/05/18 18:55 - Physicial Exam PE: 08/05/18 18:54 NAD, well appearing, PERRL, EOMI, MMM, nl conjunctiva, anicteric; neck supple. lungs clear, RRR, abdomen soft nontender. PARSON x4, no focal neuro deficits. No peripheral edema. normal color for ethnicity, WWP. - Medical Decision Making 08/05/18 17:39 See HPI for details Vital signs reviewed, hypertensive, but NAD Prior notes reviewed, including admissions, discharges and consultations. laboratory results and imaging reviewed, basic labs and lytes wnl, notable for baseline elevation in Cr. Cardiac panel_+troponin 0.08, +ischemia EKG normal sinus rhythm, no interval abnormalities, narrow QRS, ST and T wave segments and morphology normal. Nonspecific T wave abnormalities - TWI in inferior leads, similar to prior ED course: antihypertensives given, improved. headache improved with analgesia. also advised on better med compliance, antihypertensives, PMD follow up and low salt intake. controlled with labetalol, BP improved, downtrended. some e/o organ damage, admit for htn urgency. bedside sono renal neg for hydro, +color flow bilaterally. official renal sono to eval for intrinsic renal disease or pathology with left flank pain Admit for htn urgency with end organ damage, baseline CKD and +trop. Discussed results and management plan with pt and family member at bedside, agree with impression and plan admit Dr Gutierrez 08/05/18 18:54 08/05/18 18:55 08/05/18 18:56 08/09/18 15:54
[2018-08-05 18:58] LABS: URINE APPEARANCE SLCLOUDY; URINE BILIRUBIN NEGATIVE (<2.0 mg/dL); URINE COLOR LTYELLOW; URINE GLUCOSE (UA) NEGATIVE (NEGATIVE); URINE KETONE NEGATIVE (NEGATIVE); URINE LEUK ESTERASE NEGATIVE (NEGATIVE); URINE NITRITE NEGATIVE (NEGATIVE); URINE PROTEIN 3+ (NEGATIVE); URINE UROBILINOGEN NEGATIVE mg/dL (0.2-1.0)
[2018-08-05 19:12] LABS: EPI CELLS RARE /HPF (FEW); URINE BACTERIA RARE /hpf (NONE SEEN); URINE MUCUS RARE
--- NOTE | 2018-08-05 19:17 | HP ---
CHIEF COMPLAINT: BRADFORD, HTN PCP: Dr. Gutierrez HISTORY OF PRESENT ILLNESS: Seen and examined; thank you Dr. Gutierrez for allowing us to take part in the care of your patient. Overall this is a 27 y/o male with a complex PMH as documented below who presents for BRADFORD and L-flank pain after not taking his home labetalol for several days due to not having it; he has been admitted for HTN emergency here in the past and was seen by CV and nephrology at that time. In terms of his suspected AI disease he has bx proven negative on renal biopsy as detailed in his last DC summary. He does check his BP at home and noted that it was high. In the ER he was given his home dose of Labetalol 300 and his SBP fell from 200 to 159; his presenting sx improved. POCUS was done which was negative for obvious renal anatomical abnormalities. He is found to have a small troponin leak that likely is a function of his hypertensive heart disease leading to diastolic dysfunction coupled with his existing severe CKD. He will be observed on telemetry on the medicine service. Recent Travel: None PAST MEDICAL HISTORY: Reviewed; HTN, CKD-IV (sees Dr. Cordova), Suspected AI dz but renal bx proven negative, Reynaud's, chronic eosinophilia, R- hydronephrosis, Ascending Aortic Aneurysm (4.0cm) PAST SURGICAL HISTORY: No recent sgy Social History: Denies current abuse of EtOH or drugs Family History: Allergies banana Allergy (Severe, Verified 08/05/18 14:38) HOME MEDICATIONS: Home Medications Medication Instructions Recorded Nifedipine [Procardia Xl] 90 mg PO DAILY 03/08/18 Labetalol HCl [Normodyne -] 300 mg PO BID #90 tablet 05/28/18 REVIEW OF SYSTEMS 10 sys ROS done and negative aside from HPI PHYSICAL EXAMINATION Vital Signs - 24 hr 08/05/18 08/05/18 08/05/18 14:39 16:20 17:32 Temperature 98 F 97.7 F Pulse Rate 85 Pulse Rate [ 74 Left] Respiratory 16 18 Rate Blood Pressure 200/149 H Blood Pressure 188/124 H 159/114 H [Left Arm] O2 Sat by Pulse 100 100 Oximetry (%) GENERAL: Awake, alert, and fully oriented, in no acute distress. HEAD: Normal with no signs of trauma. EYES: Pupils equal, round and reactive to light, extraocular movements intact EARS, NOSE, THROAT: Ears normal, nares patent, Moist mucous membranes. NECK: Normal range of motion, supple without lymphadenopathy, JVD, or masses. LUNGS: Breath sounds equal, clear to auscultation bilaterally. HEART: Regular rate and rhythm, normal S1 and S2 without murmur, rub or gallop. ABDOMEN: Soft, nontender, not distended, normoactive bowel sounds MUSCULOSKELETAL: Normal range of motion at all joints. NEUROLOGICAL: Cranial nerves II-XII intact. Normal speech. Normal gait. PSYCHIATRIC: Cooperative. Good eye contact. SKIN: Warm, dry, normal turgor, no rashes or lesions noted, normal capillary refill. Laboratory Results - last 24 hr 08/05/18 08/05/18 08/05/18 16:15 16:15 18:40 WBC 7.9 RBC 4.32 Hgb 13.3 Hct 37.5 MCV 86.8 MCH 30.8 MCHC 35.5 RDW 13.9 Plt Count 207 MPV 9.1 Absolute Neuts (auto) 4.6 Neutrophils % 58.3 Lymphocytes % 15.2 D Monocytes % 8.6 Eosinophils % 16.7 H Basophils % 1.2 Nucleated RBC % 0 Sodium 138 Potassium 4.0 Chloride 103 Carbon Dioxide 25 Anion Gap 9 BUN 51 H Creatinine 4.1 H Creat Clearance w eGFR 17.73 Random Glucose 82 Calcium 8.8 Total Bilirubin 0.6 AST 33 ALT 33 Alkaline Phosphatase 81 Creatine Kinase 876 H Creatine Kinase Index 0.9 CK-MB (CK-2) 7.9 H Troponin I 0.08 H Total Protein 7.7 Albumin 3.8 Urine Color Ltyellow Urine Appearance Slcloudy Urine pH 5.0 Ur Specific [place] 1.016 Urine Protein 3+ H Urine Glucose (UA) Negative Urine Ketones Negative Urine Blood 1+ H Urine Nitrite Negative Urine Bilirubin Negative Urine Urobilinogen Negative Ur Leukocyte Esterase Negative ASSESSMENT/PLAN: Patient presents to the ER after missing several doses of home BP medicine found to have hypertensive emergency 1) Hypertensive Emergency -Evidenced by the elevated BP and troponin leak; note that the underlying CKD and diastolic dysfunction, etc. from his hypertensive heart disease likely lead to the retained troponin. This is, in effect, the same presentation he had during his last admission. Echo shows LAE, LVH, aortic root dil -Place on observation; consider CV consultation in the AM -Continue his home BP meds with Labetalol 300 BID, Nifedipine XL 90 (start tomorrow as he took today's dose), an doxazosin 2mg PO QD (resuming in AM). Can do PRN labetalol if his SBP >160 -Trend troponins, monitor on telemetry. -Needs close followup; if access to meds is an issue for this patient he should be referred to social work before DC. Reviewed his renal bx which indicated that uncontrolled HTN is the cause of his CKD. He is at risk of progression to ESRD with lack of compliance. -Has had US done in past for EMI which is negative 2) Advanced CKD -Creatinine/GFR at baseline; making good urine. Monitor Is and Os and QD BMP when inpatient. -Can consider nephrology eval non-urgently as renal function, while impaired, is aquin to where it was at DC. 3) Suspected AI disease -Per DCS he has "No Lupus or connective tissue disease" 4) Reynaud's -Monitor; nonacute 5) L-flank pain, hx of R-hydro -POCUS done in ER; checking formal MAXX. Negative UA. 6) Ascending Aortic Aneruysm -Continued OP surveilance recommended alongside BP control FENA -PO fluids -PRN replete -Cardiac -As tolerated Consultants: None emergent; can consider CV and nephrology in the AM Full Code Visit type - Emergency Visit Emergency Visit: Yes ED Registration Date: 08/05/18 Care time: The patient presented to the Emergency Department on the above date and was hospitalized for further evaluation of their emergent condition. - New Patient This patient is new to me today: Yes Date on this admission: 08/10/18 - Critical Care Critical Care patient: No
[2018-08-05] MEDS: NIFEdipine E.R. 90 MG TABLET (FP) PO SCH (20:55)
[2018-08-05] MEDS ORDERED: LABETALOL HCL 100 MG TABLET (FP) PO SCH (22:00)
[2018-08-06 06:55] LABS: EOS % 15.2 % (0-4.5); HEMATOCRIT 36.6 % (35.4-49); HEMOGLOBIN 12.1 GM/dL (11.7-16.9); LYMPH % 19.3 % (8-40); MCH 28.9 pg (25.7-33.7); MEAN CELL VOLUME 87.7 fl (80-96); MONO % 8.5 % (3.8-10.2); PLATELET COUNT 190 K/MM3 (134-434); RBC 4.17 M/mm3 (4.00-5.60); RDW 13.9 % (11.9-15.9)
[2018-08-06 07:38] LABS: ALBUMIN 3.3 g/dl (3.4-5.0); ALK PHOS 71 U/L (45-117); ANION GAP 9 MMOL/L (8-16); BILIRUBIN,TOTAL 0.4 mg/dL (0.2-1); BLOOD UREA NITROGEN 51 mg/dL (7-18); CALCIUM 8.4 mg/dL (8.5-10.1); CHLORIDE 104 mmol/L (98-107); CO2 26 mmol/L (21-32); CREATININE 4.1 mg/dL (0.55-1.3); GLUCOSE,RANDOM 84 mg/dL (74-106); MAGNESIUM 2.6 mg/dL (1.8-2.4); POTASSIUM 3.6 mmol/L (3.5-5.1); SGOT/AST 28 U/L (15-37); SGPT/ALT 28 U/L (13-61); SODIUM 139 mmol/L (136-145); TOT PROT 6.7 g/dl (6.4-8.2)
[2018-08-06 07:56] LABS: WHITE BLOOD COUNT 8.6 K/mm3 (4.0-10.0)
--- NOTE | 2018-08-06 09:19 | PN ---
Progress Note, Physician Chief Complaint: Patient known to me from recent admission with hypertensive urgency. PMH: CKD Hypertensive urgency Small, stable ascending aortic aneurysm 4.0cm Raynaud's Phenomenon Hypercoag state Possible autoimmune disease Did not take meds for two days over the weekend and then began to feel headaches and noted that his BP was elevated. He began to feel a mild headache. Denies Chest pain, SOB, palpitations Denies edema. Similar presentation last admission in setting of med noncompliance Had mild elevation in TnI last admission as well and nuclear stress test showed no ischemia. He failed to follow up. - Current Medication List Current Medications: Active Medications Doxazosin Mesylate (Cardura -) 2 mg PO DAILY TRES Labetalol HCl (Normodyne -) 300 mg PO BID TRES Nifedipine (Procardia Xl -) 90 mg PO DAILY TRES Last Admin: 08/05/18 20:55 Dose: Not Given - Objective Vital Signs: Vital Signs Temperature 97.8 F 08/06/18 05:24 Pulse Rate 84 08/06/18 05:24 Respiratory Rate 18 08/06/18 05:24 Blood Pressure 163/114 H 08/06/18 05:24 O2 Sat by Pulse Oximetry (%) 95 08/06/18 05:24 Constitutional: Yes: No Distress Eyes: Yes: Conjunctiva Clear Cardiovascular: Yes: Regular Rate and Rhythm, S4 Respiratory: Yes: CTA Bilaterally Gastrointestinal: Yes: Soft, Other (no renal bruits) Edema: No Labs: CBC, BMP 08/06/18 05:15 08/06/18 05:15 Laboratory Tests 05/29/18 05/29/18 08/05/18 05:30 05:30 16:15 WBC 6.8 Hgb 12.2 Plt Count 244 Sodium 141 Potassium 3.8 BUN 53 H Creatinine 4.2 H Magnesium 2.4 Total Bilirubin 0.3 AST 30 ALT 28 Alkaline Phosphatase 64 Creatine Kinase 876 H Troponin I 0.08 H 08/05/18 22:48 WBC Hgb Plt Count Sodium Potassium BUN Creatinine Magnesium Total Bilirubin AST ALT Alkaline Phosphatase Creatine Kinase 758 H Troponin I 0.07 H - ....Imaging EKG: Image Reviewed (Sinus w TWI inferiorly, mildly prolonged QT) Assessment/Plan IMP: Hypertensive urgency in setting of medication nonadherence CKD Abnl ECG Ascending aortic aneursym Possible underlying autoimmune dz REC: 1. Resume PO meds: likely rebound hypertensive effect from stopping meds 2. Echo to evaluate EF and ascending aorta 3. Renal consult 4. Elevated TnI likely secondary to hypertensive heart disease and subendocardial ischemia secondary to elevated afterolad. Recent normal stress test. 5. Daily ECG Will follow.
[2018-08-06] MEDS: NIFEdipine E.R. 90 MG TABLET (FP) PO SCH (10:10)
[2018-08-06] MEDS: LABETALOL HCL 100 MG TABLET (FP) PO SCH ×2 (10:10→21:01)
[2018-08-06] MEDS: DOXAZOSIN MESYLATE 2 MG TABLET (FP) PO SCH (10:11)
--- NOTE | 2018-08-06 10:52 | CONSULT ---
Consultation: REQUESTING PROVIDER: CONSULT REQUEST: We have been asked to medically evaluate this patient for HTNsive urgency/ CKD. HISTORY OF PRESENT ILLNESS: Pt is 27 yo M with PMHx of HTN, CKD-IV (sees Dr. Cordova), Raynaud's, chronic eosinophilia, R-hydronephrosis, Ascending Aortic Aneurysm (4.0cm) presented with elevated blood pressure and headache for 1 day. Pt reported having run out of his BP meds (nifedipine and labetolol) -last dose . He was away in [place] feeling unwell with flutters in heart on Sunday and Sunday. Returned Sunday night and noted his home BP to be 200/140 with persistent generalized headache, then came into the ED. Pt denies chest pain or palpitations but reports fluttering in chest. He had similar episode in May after also missing his medications and was discharged on 3 meds including doxazosin that he stopped taking up to 1 month ago. Pt has been diagnosed with CKD secondary to HTN (non compliant on meds) for several years and was asked to follow up for renal transplant which he has not done yet. No change in urine frequency, no obvious hematuria, dysuria, no fever or chills. Mo syncope, weakness, change in sensation or neck stiffness ED Course: BUN/cr-51/4.1 BP-200/149 >>188/124 >>159/114 >>163/114 Labetolol/nifedipine UA- 3+ protein, 1+ blood trop -0.08 REVIEW OF SYSTEMS: CONSTITUTIONAL: Absent: fever, chills, diaphoresis, generalized weakness, malaise, loss of appetite, weight change HEENT: Absent: rhinorrhea, nasal congestion, throat pain, throat swelling, difficulty swallowing, mouth swelling, ear pain, eye pain, visual changes CARDIOVASCULAR: Absent: chest pain, syncope, palpitations, irregular heart rate, lightheadedness , peripheral edema RESPIRATORY: Absent: cough, shortness of breath, dyspnea with exertion, orthopnea, wheezing, stridor, hemoptysis GASTROINTESTINAL: Absent: abdominal pain, abdominal distension, nausea, vomiting, diarrhea, constipation, melena, hematochezia GENITOURINARY: Absent: dysuria, frequency, urgency, hesitancy, hematuria, flank pain, genital pain MUSCULOSKELETAL: Absent: myalgia, arthralgia, joint swelling, back pain, neck pain SKIN: Absent: rash, itching, pallor HEMATOLOGIC/IMMUNOLOGIC: Absent: easy bleeding, easy bruising, lymphadenopathy, frequent infections ENDOCRINE: Absent: unexplained weight gain, unexplained weight loss, heat intolerance, cold intolerance NEUROLOGIC: Absent: headache+, focal weakness or paresthesias, dizziness, unsteady gait, seizure, mental status changes, bladder or bowel incontinence PSYCHIATRIC: Absent: anxiety, depression, suicidal or homicidal ideation, hallucinations. PHYSICAL EXAMINATION Vital Signs - 24 hr 08/05/18 08/05/18 08/05/18 14:39 16:20 17:32 Temperature 98 F 97.7 F Pulse Rate 85 Pulse Rate [ 74 Left] Respiratory 16 18 Rate Blood Pressure 200/149 H Blood Pressure 188/124 H 159/114 H [Left Arm] O2 Sat by Pulse 100 100 Oximetry (%) 08/06/18 05:24 Temperature 97.8 F Pulse Rate Pulse Rate [ 84 Left] Respiratory 18 Rate Blood Pressure Blood Pressure 163/114 H [Left Arm] O2 Sat by Pulse 95 Oximetry (%) GENERAL: Awake, alert, and fully oriented, in no acute distress. HEAD: Normal with no signs of trauma. EYES: Pupils equal, round and reactive to light EARS, NOSE, THROAT: Moist mucous membranes. NECK: Normal range of motion, supple without lymphadenopathy, no JVD. LUNGS: Breath sounds equal, clear to auscultation bilaterally. No wheezes, and no crackles HEART: S1 and S2,loud s2 ABDOMEN: Soft, nontender, not distended, normoactive bowel sounds, no guarding, no rebound. No renal bruit MUSCULOSKELETAL: Normal range of motion at all joints. No bony deformities or tenderness. No CVA tenderness. LOWER EXTREMITIES: 2+ pulses, warm, well-perfused. No calf tenderness. No peripheral edema. NEUROLOGICAL: Cranial nerves II-XII intact. Normal speech. No facial or tongue asymmetry, normal tone and reflexes, 5/5 strength globally CBC, BMP 08/06/18 05:15 08/06/18 05:15 Laboratory Results - last 24 hr 08/05/18 08/05/18 08/05/18 16:15 16:15 18:40 WBC 7.9 RBC 4.32 Hgb 13.3 Hct 37.5 MCV 86.8 MCH 30.8 MCHC 35.5 RDW 13.9 Plt Count 207 MPV 9.1 Absolute Neuts (auto) 4.6 Neutrophils % 58.3 Lymphocytes % 15.2 D Monocytes % 8.6 Eosinophils % 16.7 H Basophils % 1.2 Nucleated RBC % 0 Sodium 138 Potassium 4.0 Chloride 103 Carbon Dioxide 25 Anion Gap 9 BUN 51 H Creatinine 4.1 H Creat Clearance w eGFR 17.73 Random Glucose 82 Calcium 8.8 Magnesium Total Bilirubin 0.6 AST 33 ALT 33 Alkaline Phosphatase 81 Creatine Kinase 876 H Creatine Kinase Index 0.9 CK-MB (CK-2) 7.9 H Troponin I 0.08 H Total Protein 7.7 Albumin 3.8 Urine Color Ltyellow Urine Appearance Slcloudy Urine pH 5.0 Ur Specific [place] 1.016 Urine Protein 3+ H Urine Glucose (UA) Negative Urine Ketones Negative Urine Blood 1+ H Urine Nitrite Negative Urine Bilirubin Negative Urine Urobilinogen Negative Ur Leukocyte Esterase Negative Urine WBC (Auto) 2 Urine RBC (Auto) 1 Ur Epithelial Cells Rare Urine Bacteria Rare Urine Mucus Rare 08/05/18 08/06/18 08/06/18 22:48 05:15 05:15 WBC 8.6 RBC 4.17 Hgb 12.1 Hct 36.6 MCV 87.7 MCH 28.9 MCHC 33.0 RDW 13.9 Plt Count 190 MPV 9.0 Absolute Neuts (auto) 4.8 Neutrophils % 56.0 Lymphocytes % 19.3 D Monocytes % 8.5 Eosinophils % 15.2 H Basophils % 1.0 Nucleated RBC % 0 Sodium 139 Potassium 3.6 Chloride 104 Carbon Dioxide 26 Anion Gap 9 BUN 51 H Creatinine 4.1 H Creat Clearance w eGFR 17.73 Random Glucose 84 Calcium 8.4 L Magnesium 2.6 H Total Bilirubin 0.4 AST 28 ALT 28 Alkaline Phosphatase 71 Creatine Kinase 758 H Creatine Kinase Index 0.8 CK-MB (CK-2) 6.8 H Troponin I 0.07 H Total Protein 6.7 Albumin 3.3 L Urine Color Urine Appearance Urine pH Ur Specific [place] Urine Protein Urine Glucose (UA) Urine Ketones Urine Blood Urine Nitrite Urine Bilirubin Urine Urobilinogen Ur Leukocyte Esterase Urine WBC (Auto) Urine RBC (Auto) Ur Epithelial Cells Urine Bacteria Urine Mucus Active Medications Generic Name Dose Route Start Last Admin Trade Name Freq PRN Reason Stop Dose Admin Doxazosin Mesylate 2 mg 08/06/18 10:00 08/06/18 10:11 Cardura - PO Not Given DAILY TRES Labetalol HCl 300 mg 08/06/18 10:00 08/06/18 10:10 Normodyne - PO 300 mg BID TRES Administration Nifedipine 90 mg 08/05/18 19:30 08/06/18 10:10 Procardia Xl - PO 90 mg DAILY TRES Administration Current Medications Doxazosin Mesylate (Cardura -) 2 mg PO DAILY [facility] Last Admin: 08/06/18 10:11 Dose: Not Given Labetalol HCl (Normodyne -) 300 mg PO BID [facility] Last Admin: 08/06/18 10:10 Dose: 300 mg Nifedipine (Procardia Xl -) 90 mg PO DAILY [facility] Last Admin: 08/06/18 10:10 Dose: 90 mg ASSESSMENT/PLAN: Pt is a 27 yo M with PMHx of HTN, CKD-IV (sees Dr. Cordova), Raynaud's, chronic eosinophilia, R-hydronephrosis, Ascending Aortic Aneurysm (4.0cm) Assessment: HTNsive urgency CKD-IV (sees Dr. Cordova), Raynaud's, chronic eosinophilia, R-hydronephrosis, Ascending Aortic Aneurysm (4.0cm) Plan: #HTNsive urgency Due to pt non compliance Pt without chest pain, though with trops at 0.08 >>0.07 may be related to CKD Proteinuria with moderate hematuria (CKD) BP trending down on labetolol and nifedipine Would likely add back doxazosin in the am or consider another antihypertensive as pt stopped doxazosin on his own Q4H bp measurement Salt restriction <2g/day DASH diet CKD-IV (sees Dr. Cordova) Encouraged to follow at transplant centers to get on the list Currently not acidotic, or with elevated potassium Continue to monitor Avoid nephrotoxic meds For out pt follow up other mx per primary team D/w Dr Cordova Dispo: We will continue to follow the patient. Thank you for this consultative opportunity. Visit type - Emergency Visit Emergency Visit: Yes ED Registration Date: 08/05/18 Care time: The patient presented to the Emergency Department on the above date and was hospitalized for further evaluation of their emergent condition. - New Patient This patient is new to me today: Yes Date on this admission: 08/06/18 - Critical Care Critical Care patient: No
--- NOTE | 2018-08-06 10:58 | ECHO ---
Name: LAUREEN RICE Exam:Adult Echocardiogram Study Date: 08/06/2018 08:52 AM Age: 27 yrs Reason For Study: HTN Height: 77 in Weight: 190 lb BSA: 2.2 m2 MMode/2D Measurements & Calculations IVSd: 1.2 cm Ao root diam: 4.1 cm LVIDd: 5.6 cm LA dimension: 4.0 cm LVIDs: 4.1 cm LVPWd: 0.96 cm EDV(Teich): 153.3 ml LVOT diam: 2.5 cm ESV(Teich): 75.2 ml TAPSE: 2.6 cm RV S Moses: 12.3 cm/sec Doppler Measurements & Calculations MV E max moses: 44.4 cm/sec Med Peak E' Moses: 4.2 cm/sec MV A max moses: 60.7 cm/sec Med E/e': 10.7 MV E/A: 0.73 Lat Peak E' Moses: 4.3 cm/sec MV dec time: 0.37 sec Lat E/e': 10.4 Procedure A two-dimensional transthoracic echocardiogram with color flow and Doppler was performed. Left Ventricle There is mild concentric left ventricular hypertrophy. Left ventricular systolic function is low norm al. Ejection Fraction = 50%. E/A reversal consistent with but not diagnostic of poor LV compliance. Right Ventricle The right ventricle is mildly dilated. The right ventricular systolic function is normal. Atria The left atrium is mildly dilated. The right atrium is mildly dilated. Mitral Valve The mitral valve is normal. There is trace mitral regurgitation. Tricuspid Valve The tricuspid valve is normal. There is trace tricuspid regurgitation. Aortic Valve The aortic valve is normal in structure and function. The aortic valve is trileaflet. Trace aortic regurgitation. Pulmonic Valve The pulmonic valve leaflets are thin and pliable; valve motion is normal. Trace pulmonic valvular regurgitation. Great Vessels Mild aortic root dilatation. Pericardium/Pleura There is no pericardial effusion. Interpretation Summary There is mild concentric left ventricular hypertrophy. Left ventricular systolic function is low normal. Ejection Fraction = 50%. E/A reversal consistent with but not diagnostic of poor LV compliance The right ventricle is mildly dilated. The right ventricular systolic function is normal. The left atrium is mildly dilated. There is trace mitral regurgitation. There is trace tricuspid regurgitation. Trace aortic regurgitation. Trace pulmonic valvular regurgitation. Mild aortic root dilatation. There is no pericardial effusion. MD Rigoberto Rodriguez 08/06/2018 10:57 AM
--- NOTE | 2018-08-06 14:42 | PN ---
Teaching Attending Note Name of Resident: Tracy Cook (Nephrology) ATTENDING PHYSICIAN STATEMENT I saw and evaluated the patient. I reviewed the resident's note and discussed the case with the resident. I agree with the resident's findings and plan as documented. Renal Pt is a 27 year old male with hx of CKD, HTN, raynauds and non compliance who presents with headache. He was found to have elevated blood pressure. He had stopped taking his meds on his own. BP started to improve once meds restarted. He did not follow with Dr Arzate since his last discharge. pmhx htn raynauds ckd allergies banana family hx denies social hx denies ros feels well and is asking to go home Current Medications Generic Name Dose Route Start Last Admin Trade Name Freq PRN Reason Stop Dose Admin Doxazosin Mesylate 2 mg 08/06/18 10:00 08/06/18 10:11 Cardura - PO Not Given DAILY TRES Labetalol HCl 300 mg 08/06/18 10:00 08/06/18 10:10 Normodyne - PO 300 mg BID TRES Administration Nifedipine 90 mg 08/05/18 19:30 08/06/18 10:10 Procardia Xl - PO 90 mg DAILY TRES Administration Laboratory Tests 05/29/18 08/05/18 08/06/18 05:30 16:15 05:15 Creatinine 4.2 H 4.1 H 4.1 H Selected Entries 08/05/18 08/06/18 16:20 14:08 Blood Pressure 188/124 H 160/111 H [Left Arm] cardio s1s2 reg pulm clear GI soft ext neg edema neuro awake and alert skin neg rash Impression 1. CKD 2. raynauds 3. hypertensive urgency 4. non compliance 5. aortic aneurysm Plan - cont bp meds - monitor blood pressure - renal function is not much different than last admission - compliance with meds has been a problem - he has not gone for transplant eval - cardio input appreciated Dr Cordova
--- NOTE | 2018-08-06 14:58 | PN ---
Progress Note, Physician Chief Complaint: HTN urgnecy CKD Raynaud's History of Present Illness: Previous notes and events reviewed awake and alert NAD denies chest pain, palpitations, SOB - Current Medication List Current Medications: Active Medications Doxazosin Mesylate (Cardura -) 2 mg PO DAILY [facility] Last Admin: 08/06/18 10:11 Dose: Not Given Labetalol HCl (Normodyne -) 300 mg PO BID [facility] Last Admin: 08/06/18 10:10 Dose: 300 mg Nifedipine (Procardia Xl -) 90 mg PO DAILY [facility] Last Admin: 08/06/18 10:10 Dose: 90 mg - Objective Vital Signs: Vital Signs Temperature 97.8 F 08/06/18 05:24 Pulse Rate 70 08/06/18 14:46 Respiratory Rate 18 08/06/18 14:46 Blood Pressure 153/110 H 08/06/18 14:46 O2 Sat by Pulse Oximetry (%) 100 08/06/18 14:08 Constitutional: Yes: Well Nourished, No Distress, Calm Eyes: Yes: Conjunctiva Clear Neck: Yes: Supple Cardiovascular: Yes: Regular Rate and Rhythm Respiratory: Yes: Regular, CTA Bilaterally Gastrointestinal: Yes: Normal Bowel Sounds, Soft Musculoskeletal: Yes: WNL Extremities: Yes: WNL Edema: No Integumentary: Yes: WNL Neurological: Yes: Alert, Oriented Psychiatric: Yes: Alert, Oriented Labs: CBC, BMP 08/06/18 05:15 08/06/18 05:15 - ....Imaging Ultrasound: Report Reviewed Other: Report Reviewed (Echocardriogram-EF 50%) <Kaci Mcfadden - Last Filed: 08/06/18 14:52> - Current Medication List Current Medications: Active Medications Chlorthalidone (Hygroton -) 25 mg PO DAILY [facility] Last Admin: 08/07/18 10:32 Dose: 25 mg Doxazosin Mesylate (Cardura -) 2 mg PO DAILY [facility] Last Admin: 08/07/18 10:24 Dose: 2 mg Labetalol HCl (Normodyne -) 400 mg PO BID [facility] Last Admin: 08/07/18 09:35 Dose: 400 mg Nifedipine (Procardia Xl -) 120 mg PO DAILY [facility] - Objective Vital Signs: Vital Signs Temperature 98.7 F 08/07/18 09:11 Pulse Rate 77 08/07/18 11:45 Respiratory Rate 18 08/07/18 09:11 Blood Pressure 160/118 H 08/07/18 12:52 O2 Sat by Pulse Oximetry (%) 100 08/07/18 09:00 Labs: CBC, BMP 08/07/18 05:30 08/07/18 05:30 <Arcadio Gutierrez - Last Filed: 08/07/18 16:57> Problem List - Problems (1) CKD (chronic kidney disease) Code(s): N18.9 - CHRONIC KIDNEY DISEASE, UNSPECIFIED Qualifiers: Chronic kidney disease stage: unspecified stage Qualified Code(s): N18.9 - Chronic kidney disease, unspecified (2) Essential hypertension Code(s): I10 - ESSENTIAL (PRIMARY) HYPERTENSION (3) Hypertensive emergency Code(s): I10 - ESSENTIAL (PRIMARY) HYPERTENSION (4) Raynaud phenomenon Code(s): I73.00 - RAYNAUD'S SYNDROME WITHOUT GANGRENE Qualifiers: Raynaud?s-associated gangrene presence: without gangrene Qualified Code(s) : I73.00 - Raynaud's syndrome without gangrene <Kaci Mcfadden - Last Filed: 08/06/18 14:52> Assessment/Plan -cardiology on board -daily EKG -troponin 0.08 and 0.07, will repeat to monitor for downward trend -tele monitoring -cont with nifedipine, labetolol, doxazosin -BP q4h -nephrology on board -BUN/Cr elev, will trend -dvt ppx <Kaci Mcfadden - Last Filed: 08/06/18 14:52> PATIENT SEEN AND EXAMINED AND I AGREE WITH ABOVE NOTE <Arcadio Gutierrez - Last Filed: 08/07/18 16:57>
--- NOTE | 2018-08-06 18:12 | EKG ---
Test Reason : Blood Pressure : / mmHG Vent. Rate : 069 BPM Atrial Rate : 069 BPM P-R Int : 116 ms QRS Dur : 096 ms QT Int : 480 ms P-R-T Axes : -17 058 -68 degrees QTc Int : 514 ms NORMAL SINUS RHYTHM PROLONGED QT ABNORMAL ECG Confirmed by MD BUCK, EILEEN ([id number]) on 08/06/2018 6:12:23 PM Referred By: Confirmed By:EILEEN JANE MD
--- NOTE | 2018-08-06 18:15 | EKG ---
Test Reason : Blood Pressure : / mmHG Vent. Rate : 069 BPM Atrial Rate : 069 BPM P-R Int : 156 ms QRS Dur : 096 ms QT Int : 478 ms P-R-T Axes : 046 062 -53 degrees QTc Int : 512 ms POOR DATA QUALITY, INTERPRETATION MAY BE ADVERSELY AFFECTED NORMAL SINUS RHYTHM POSSIBLE LEFT ATRIAL ENLARGEMENT T WAVE ABNORMALITY, CONSIDER INFERIOR ISCHEMIA PROLONGED QT ABNORMAL ECG Confirmed by MD BUCK, EILEEN ([id number]) on 08/06/2018 6:14:34 PM Referred By: Confirmed By:EILEEN JANE MD
[2018-08-06 21:04] LABS: HEMATOCRIT 33.8 % (35.4-49); HEMOGLOBIN 12.1 GM/dL (11.7-16.9); MCH 31.1 pg (25.7-33.7); MCHC 35.8 g/dl (32.0-35.9); MEAN CELL VOLUME 86.8 fl (80-96); MEAN PLT VOLUME 9.4 fl (7.5-11.1); PLATELET COUNT 213 K/MM3 (134-434); RBC 3.89 M/mm3 (4.00-5.60); RDW 13.8 % (11.9-15.9); WHITE BLOOD COUNT 8.6 K/mm3 (4.0-10.0)
[2018-08-07] MEDS: NIFEdipine E.R. 90 MG TABLET (FP) PO SCH ×2 (06:02→09:35)
[2018-08-07] MEDS: LABETALOL HCL 100 MG TABLET (FP) PO SCH (06:03)
[2018-08-07 06:18] LABS: EOS % 14.9 % (0-4.5); HEMATOCRIT 34.1 % (35.4-49); HEMOGLOBIN 11.9 GM/dL (11.7-16.9); LYMPH % 18.3 % (8-40); MCH 30.7 pg (25.7-33.7); MEAN CELL VOLUME 87.7 fl (80-96); MEAN PLT VOLUME 8.9 fl (7.5-11.1); MONO % 8.7 % (3.8-10.2); NEUT % 57.1 % (42.8-82.8); PLATELET COUNT 188 K/MM3 (134-434); RBC 3.89 M/mm3 (4.00-5.60); WHITE BLOOD COUNT 8.5 K/mm3 (4.0-10.0)
[2018-08-07 06:37] LABS: ALBUMIN 3.3 g/dl (3.4-5.0); ALK PHOS 67 U/L (45-117); ANION GAP 8 MMOL/L (8-16); BILIRUBIN,TOTAL 0.4 mg/dL (0.2-1); BLOOD UREA NITROGEN 48 mg/dL (7-18); CALCIUM 8.7 mg/dL (8.5-10.1); CHLORIDE 103 mmol/L (98-107); CO2 26 mmol/L (21-32); CREATININE 4.2 mg/dL (0.55-1.3); GLUCOSE,RANDOM 84 mg/dL (74-106); MAGNESIUM 2.3 mg/dL (1.8-2.4); PHOSPHOROUS 5.3 mg/dL (2.5-4.9); POTASSIUM 3.7 mmol/L (3.5-5.1); SGOT/AST 24 U/L (15-37); SGPT/ALT 29 U/L (13-61); SODIUM 137 mmol/L (136-145); TOT PROT 6.6 g/dl (6.4-8.2)
--- NOTE | 2018-08-07 08:56 | PN ---
Progress Note, Physician Chief Complaint: comfortable no distress TELE: NSR NSST History of Present Illness: denies CP, headache or other neuro sx - Current Medication List Current Medications: Active Medications Doxazosin Mesylate (Cardura -) 2 mg PO DAILY [facility] Last Admin: 08/06/18 10:11 Dose: Not Given Nifedipine (Procardia Xl -) 90 mg PO DAILY [facility] Last Admin: 08/07/18 06:02 Dose: 90 mg - Objective Vital Signs: Vital Signs Temperature 98.8 F 08/07/18 05:00 Pulse Rate 82 08/07/18 05:00 Respiratory Rate 18 08/07/18 05:00 Blood Pressure 180/110 H 08/07/18 05:00 O2 Sat by Pulse Oximetry (%) 100 08/06/18 19:13 Constitutional: Yes: No Distress, Calm Eyes: Yes: Conjunctiva Clear Cardiovascular: Yes: Regular Rate and Rhythm Respiratory: Yes: CTA Bilaterally Gastrointestinal: Yes: Soft (no bruits) Edema: No Neurological: Yes: Alert, Oriented Labs: CBC, BMP 08/07/18 05:30 08/07/18 05:30 - ....Imaging Ultrasound: Image Reviewed (renal US no hydro ECHO: Low normal. Mild aortic root dilatation) Assessment/Plan IMP: Hypertensive urgency in setting of medication nonadherence CKD Abnl ECG Ascending aortic aneursym Possible underlying autoimmune dz REC: 1. Titrate Labetalol. Increased to 400 BID. Consider increasing evening Procardia XL to 120 2. Echo to evaluate EF and ascending aorta shows no change. Low normal EF with mild aortic dilatation. 3. Renal consult appreciated 4. Elevated TnI likely secondary to hypertensive heart disease and subendocardial ischemia secondary to elevated afterolad. Recent normal stress test. 5. Daily ECG/Tele to observe heart rate response to Labetalol titration and close monitoring BP. Will follow
[2018-08-07] MEDS ORDERED: PT OWN MED DRAWER 7, Y5N ONE (09:26)
[2018-08-07] MEDS: LABETALOL HCL 200 MG TABLET (FP) PO SCH ×2 (09:35→21:47)
[2018-08-07] MEDS: DOXAZOSIN MESYLATE 2 MG TABLET (FP) PO SCH ×2 (09:36→10:24)
--- NOTE | 2018-08-07 09:50 | PN ---
Physical Exam: SUBJECTIVE: Patient seen and examined. Headache improved. No chest pain or SOB. Did not receive doxazosin yesterday OBJECTIVE: Vital Signs Period Temp Pulse Resp BP Sys/Michele Pulse Ox Last 24 Hr 97.7 F-98.8 F 70-82 18-18 153-193/106-130 99-100 Vital Signs Temp 98.7 F 08/07/18 09:11 Pulse 79 08/07/18 09:11 Resp 18 08/07/18 09:11 BP 193/130 H 08/07/18 09:11 Pulse Ox 100 08/07/18 09:00 Intake & Output 08/06/18 08/06/18 08/07/18 11:59 23:59 11:59 Intake Total 10 0 Balance 10 0 Weight 86.183 kg 83.733 kg Intake: IV 10 0 s/l 10 0 Other: Voiding Method Toilet Toilet Height 1.96 m Body Mass Index (BMI) 22.5 Weight Measurement Method Stated by Patient Standing Scale GENERAL: The patient is awake, alert, and fully oriented, in no acute distress. EYES: PERRL, extraocular movements intact, ENT: moist mucous membranes. LUNGS: Breath sounds equal, clear to auscultation bilaterally, no wheezes, no crackles HEART: Regular rate and rhythm, S1, S2 ABDOMEN: Soft, nontender, nondistended, normoactive bowel sounds, EXTREMITIES: 2+ pulses, warm, well-perfused, no edema. NEUROLOGICAL: Cranial nerves II through XII grossly intact. No facial/tongue atrophy. 5/5 muscle strength, normal tone. Normal speech, gait not observed. Laboratory Results - last 24 hr 08/06/18 08/07/18 08/07/18 20:00 05:30 05:30 WBC 8.6 8.5 RBC 3.89 L 3.89 L Hgb 12.1 11.9 Hct 33.8 L 34.1 L MCV 86.8 87.7 MCH 31.1 30.7 MCHC 35.8 35.0 RDW 13.8 14.0 Plt Count 213 188 MPV 9.4 8.9 Absolute Neuts (auto) 4.8 Neutrophils % 57.1 Lymphocytes % 18.3 Monocytes % 8.7 Eosinophils % 14.9 H Basophils % 1.0 Nucleated RBC % 0 Sodium 137 Potassium 3.7 Chloride 103 Carbon Dioxide 26 Anion Gap 8 BUN 48 H Creatinine 4.2 H Creat Clearance w eGFR 17.24 Random Glucose 84 Calcium 8.7 Phosphorus 5.3 H Magnesium 2.3 Total Bilirubin 0.4 AST 24 ALT 29 Alkaline Phosphatase 67 Total Protein 6.6 Albumin 3.3 L Active Medications Generic Name Dose Route Start Last Admin Trade Name Freq PRN Reason Stop Dose Admin Doxazosin Mesylate 2 mg 08/06/18 10:00 08/07/18 09:36 Cardura - PO Not Given DAILY [facility] Labetalol HCl 400 mg 08/07/18 10:00 08/07/18 09:35 Normodyne - PO 400 mg BID [facility] Administration Nifedipine 90 mg 08/05/18 19:30 08/07/18 09:35 Procardia Xl - PO 90 mg DAILY [facility] Administration ASSESSMENT/PLAN: Pt is a 27 yo M with PMHx of HTN, CKD-IV (sees Dr. Cordova), Raynaud's, chronic eosinophilia, R-hydronephrosis, Ascending Aortic Aneurysm (4.0cm) HTNsive urgency CKD-IV (sees Dr. Cordova/Dr Wilson), Raynaud's, chronic eosinophilia, R-hydronephrosis, Ascending Aortic Aneurysm (4.0cm) Tropinemia Medication noncompliance Plan: #HTNsive urgency Due to pt non compliance ECHO report reviewed Pt without chest pain, though with trops at 0.08 >>0.07 may be related to CKD Proteinuria with moderate hematuria (CKD) labetolol uptitrated per cardiology Cont nifedipine may req bid dose as previous (90am and 30pm) Q4H bp measurement Salt restriction <2g/day DASH diet CKD-IV (sees Dr. Cordova) Abd US-medical renal disease Encouraged to follow at transplant centers to get on the list Currently not acidotic, or with elevated potassium Continue to monitor Avoid nephrotoxic meds For out pt follow up other mx per primary team D/w Dr Cordova Dispo: We will continue to follow the patient. Thank you for this consultative opportunity. Visit type - Emergency Visit Emergency Visit: Yes ED Registration Date: 08/05/18 Care time: The patient presented to the Emergency Department on the above date and was hospitalized for further evaluation of their emergent condition. - New Patient This patient is new to me today: No - Critical Care Critical Care patient: No - Discharge Referral Referred to [facility] Med P.C.: No
--- NOTE | 2018-08-07 10:01 | PN ---
Progress Note, Physician Chief Complaint: EVENTS AND NOTES REVIEWED IN BED DENIES CHEST PAIN NO HEADACHE OR SOB BP STILL HIGH - Current Medication List Current Medications: Active Medications Doxazosin Mesylate (Cardura -) 2 mg PO DAILY [facility] Last Admin: 08/07/18 09:36 Dose: Not Given Labetalol HCl (Normodyne -) 400 mg PO BID [facility] Last Admin: 08/07/18 09:35 Dose: 400 mg Nifedipine (Procardia Xl -) 90 mg PO DAILY [facility] Last Admin: 08/07/18 09:35 Dose: 90 mg - Objective Vital Signs: Vital Signs Temperature 98.7 F 08/07/18 09:11 Pulse Rate 79 08/07/18 09:11 Respiratory Rate 18 08/07/18 09:11 Blood Pressure 193/130 H 08/07/18 09:11 O2 Sat by Pulse Oximetry (%) 100 08/07/18 09:00 Constitutional: Yes: No Distress Eyes: Yes: WNL HENT: Yes: WNL Neck: Yes: WNL Cardiovascular: Yes: WNL Respiratory: Yes: WNL Gastrointestinal: Yes: WNL Genitourinary: Yes: WNL Musculoskeletal: Yes: WNL Extremities: Yes: WNL Edema: No Peripheral Pulses WNL: Yes Integumentary: Yes: WNL Wound/Incision: Yes: Clean/Dry Neurological: Yes: WNL ...Motor Strength: WNL Psychiatric: Yes: WNL Labs: CBC, BMP 08/07/18 05:30 08/07/18 05:30 Problem List - Problems (1) CKD (chronic kidney disease) Code(s): N18.9 - CHRONIC KIDNEY DISEASE, UNSPECIFIED Qualifiers: Chronic kidney disease stage: unspecified stage Qualified Code(s): N18.9 - Chronic kidney disease, unspecified (2) High blood pressure Code(s): I10 - ESSENTIAL (PRIMARY) HYPERTENSION Qualifiers: Hypertension type: unspecified Qualified Code(s): I10 - Essential (primary ) hypertension (3) Lupus (systemic lupus erythematosus) Code(s): M32.9 - SYSTEMIC LUPUS ERYTHEMATOSUS, UNSPECIFIED Qualifiers: Systemic lupus erythematosus type: unspecified Systemic lupus erythematosus organ involvement: unspecified Qualified Code(s): M32.9 - Systemic lupus erythematosus, unspecified (4) JENNIFFER (acute kidney injury) Code(s): N17.9 - ACUTE KIDNEY FAILURE, UNSPECIFIED (5) Chest pain Code(s): R07.9 - CHEST PAIN, UNSPECIFIED Qualifiers: Chest pain type: chest pain on breathing Qualified Code(s): R07.1 - Chest pain on breathing (6) Essential hypertension Code(s): I10 - ESSENTIAL (PRIMARY) HYPERTENSION (7) Hypertensive emergency Code(s): I10 - ESSENTIAL (PRIMARY) HYPERTENSION Assessment/Plan ADDING CHLORTHALIDONE 25MG DAILY [facility] F/U APPRECIATED TELE-MONITORING PATIENT NON-COMPLIANT WITH FOLLOW UP EXAMS OUTPATIENT AND INADHERENT TO MEDICATIONS CONSIDERING PSYCHIATRY EVAL
[2018-08-07] MEDS: CHLORTHALIDONE 25 MG TABLET PO SCH (10:32)
--- NOTE | 2018-08-07 11:31 | PN ---
Progress Note, Physician History of Present Illness: Pt seen and examined at bedside. He is awake and alert. He denies shortness of breath. - Current Medication List Current Medications: Active Medications Chlorthalidone (Hygroton -) 25 mg PO DAILY [facility] Last Admin: 08/07/18 10:32 Dose: 25 mg Doxazosin Mesylate (Cardura -) 2 mg PO DAILY [facility] Last Admin: 08/07/18 10:24 Dose: 2 mg Labetalol HCl (Normodyne -) 400 mg PO BID [facility] Last Admin: 08/07/18 09:35 Dose: 400 mg Nifedipine (Procardia Xl -) 90 mg PO DAILY [facility] Last Admin: 08/07/18 09:35 Dose: 90 mg - Objective Vital Signs: Vital Signs Temperature 98.7 F 08/07/18 09:11 Pulse Rate 79 08/07/18 09:11 Respiratory Rate 18 08/07/18 09:11 Blood Pressure 193/130 H 08/07/18 09:11 O2 Sat by Pulse Oximetry (%) 100 08/07/18 09:00 Constitutional: Yes: Calm Eyes: Yes: Conjunctiva Clear HENT: Yes: Atraumatic Cardiovascular: Yes: S1, S2 Respiratory: Yes: CTA Bilaterally Gastrointestinal: Yes: Soft Genitourinary: Yes: WNL Musculoskeletal: Yes: WNL Edema: No Neurological: Yes: Oriented Psychiatric: Yes: Oriented Labs: CBC, BMP 08/07/18 05:30 08/07/18 05:30 Problem List - Problems (1) CKD (chronic kidney disease) Code(s): N18.9 - CHRONIC KIDNEY DISEASE, UNSPECIFIED Qualifiers: Chronic kidney disease stage: unspecified stage Qualified Code(s): N18.9 - Chronic kidney disease, unspecified (2) High blood pressure Code(s): I10 - ESSENTIAL (PRIMARY) HYPERTENSION Qualifiers: Hypertension type: unspecified Qualified Code(s): I10 - Essential (primary ) hypertension Assessment/Plan Current Medications Generic Name Dose Route Start Last Admin Trade Name Freq PRN Reason Stop Dose Admin Chlorthalidone 25 mg 08/07/18 10:15 08/07/18 10:32 Hygroton - PO 25 mg DAILY [facility] Administration Doxazosin Mesylate 2 mg 08/06/18 10:00 08/07/18 10:24 Cardura - PO 2 mg DAILY [facility] Administration Labetalol HCl 400 mg 08/07/18 10:00 08/07/18 09:35 Normodyne - PO 400 mg BID [facility] Administration Nifedipine 90 mg 08/05/18 19:30 08/07/18 09:35 Procardia Xl - PO 90 mg DAILY [facility] Administration Impression 1. CKD 2. raynauds 3. hypertensive urgency 4. non compliance 5. aortic aneurysm Plan - labetolol increased - cont nifedipine, add a pm dose if bp does not improve - repeat bp after am meds - compliance has been a problem with him, discussed importance of taking his meds - discussed with general medical practitioner - keep in hospital until bp is more stable
[2018-08-07] MEDS ORDERED: NIFEdipine E.R. 30 MG TABLET (FP) PO ONE ×2 (15:00→17:00)
--- NOTE | 2018-08-08 09:05 | PN ---
Progress Note, Physician Chief Complaint: BP remains elevated Denies CP or SOB Denies headache or neuro sx TELE: NSR w/ NSST changes - Current Medication List Current Medications: Active Medications Chlorthalidone (Hygroton -) 25 mg PO DAILY [facility] Last Admin: 08/07/18 10:32 Dose: 25 mg Doxazosin Mesylate (Cardura -) 2 mg PO DAILY [facility] Last Admin: 08/07/18 10:24 Dose: 2 mg Labetalol HCl (Normodyne -) 400 mg PO BID [facility] Last Admin: 08/07/18 21:47 Dose: 400 mg Nifedipine (Procardia Xl -) 120 mg PO DAILY [facility] - Objective Vital Signs: Vital Signs Temperature 98.2 F 08/08/18 06:18 Pulse Rate 76 08/08/18 06:18 Respiratory Rate 16 08/08/18 06:18 Blood Pressure 158/110 H 08/08/18 06:18 O2 Sat by Pulse Oximetry (%) 100 08/07/18 09:00 Constitutional: Yes: No Distress Cardiovascular: Yes: Regular Rate and Rhythm Respiratory: Yes: CTA Bilaterally Gastrointestinal: Yes: Soft Edema: No Neurological: Yes: Alert, Oriented Labs: CBC, BMP 08/07/18 05:30 08/07/18 05:30 - ....Imaging EKG: Image Reviewed Assessment/Plan IMP: Hypertensive urgency in setting of medication nonadherence CKD Abnl ECG Ascending aortic aneursym Possible underlying autoimmune dz REC: 1. Cont 400 BID. Titrated Procardia XL to 120mg. Add Hydralazine TID w/ hold parameters 2. Echo to evaluate EF and ascending aorta shows no change. Low normal EF with mild aortic dilatation. 3. Renal consult appreciated 4. Elevated TnI likely secondary to hypertensive heart disease and subendocardial ischemia secondary to elevated afterolad. Recent normal stress test. 5. Daily ECG/Tele to observe heart rate response to Labetalol titration and close monitoring BP. Will follow
[2018-08-08] MEDS ORDERED: NIFEdipine E.R 60 MG TABLET (UD) PO SCH (10:00)
[2018-08-08] MEDS: DOXAZOSIN MESYLATE 2 MG TABLET (FP) PO SCH (10:03)
[2018-08-08] MEDS: LABETALOL HCL 200 MG TABLET (FP) PO SCH (10:04)
[2018-08-08] MEDS: CHLORTHALIDONE 25 MG TABLET PO SCH (10:04)
--- NOTE | 2018-08-08 11:17 | PN ---
Physical Exam: SUBJECTIVE: Patient seen and examined. No chest pain, no headaches, no SOB. Max BP yesterday 193/130. OBJECTIVE: Vital Signs Period Temp Pulse Resp BP Sys/Michele Pulse Ox Last 24 Hr 97.6 F-98.2 F 73-80 16-18 145-174/90-128 Vital Signs Temp 98.2 F 08/08/18 06:18 Pulse 76 08/08/18 06:18 Resp 16 08/08/18 06:18 BP 158/110 H 08/08/18 06:18 Pulse Ox 100 08/07/18 09:00 GENERAL: The patient is awake, alert, and fully oriented, in no acute distress. HEAD: Normal with no signs of trauma. EYES: PERRL, extraocular movements intact, sclera anicteric, conjunctiva clear. LUNGS: Breath sounds equal, clear to auscultation bilaterally, no wheezes, no crackles HEART: Regular rate and rhythm, S1, S2 without murmur ABDOMEN: Soft, nontender, nondistended, normoactive bowel sounds EXTREMITIES: 2+ pulses, warm, well-perfused, no edema. NEUROLOGICAL: Cranial nerves II through XII grossly intact. Strength 5/5 globally, normal tone, symmetrical face and tongue. Normal speech, gait not observed. Active Medications Generic Name Dose Route Start Last Admin Trade Name Freq PRN Reason Stop Dose Admin Chlorthalidone 25 mg 08/07/18 10:15 08/08/18 10:04 Hygroton - PO 25 mg DAILY [facility] Administration Doxazosin Mesylate 2 mg 08/06/18 10:00 08/08/18 10:03 Cardura - PO 2 mg DAILY [facility] Administration Hydralazine HCl 10 mg 08/08/18 14:00 Apresoline - PO TID [facility] Labetalol HCl 400 mg 08/07/18 10:00 08/08/18 10:04 Normodyne - PO 400 mg BID [facility] Administration Nifedipine 120 mg 08/08/18 10:00 08/08/18 10:05 Procardia Xl - PO 120 mg DAILY [facility] Administration ASSESSMENT/PLAN: Pt is a 27 yo M with PMHx of HTN, CKD-IV (sees Dr. Cordova), Raynaud's, chronic eosinophilia, R-hydronephrosis, Ascending Aortic Aneurysm (4.0cm) HTNsive urgency CKD-IV (sees Dr. Cordova/Dr Wilson), Raynaud's, chronic eosinophilia, R-hydronephrosis, Ascending Aortic Aneurysm (4.0cm) Tropinemia Medication noncompliance Plan: #HTNsive urgency Due to pt non compliance ECHO report reviewed Pt without chest pain, though with trops at 0.08 >>0.07 may be related to CKD Proteinuria with moderate hematuria (CKD) labetolol uptitrated per cardiology Medications uptitrated- Labetalol maxed at 400 bid, nifedipine XL 120mg daily , Received doxazosin 2mg daily chlorthalidone- 25mg Hydralazine 25mg Q4H bp measurement Salt restriction <2g/day DASH diet CKD-IV (sees Dr. Cordova) Abd US-medical renal disease Encouraged to follow at transplant centers to get on the list Currently not acidotic, or with elevated potassium Continue to monitor Avoid nephrotoxic meds For out pt follow up other mx per primary team Dispo: We will continue to follow the patient. Thank you for this consultative opportunity. Visit type - Emergency Visit Emergency Visit: Yes ED Registration Date: 08/05/18 Care time: The patient presented to the Emergency Department on the above date and was hospitalized for further evaluation of their emergent condition. - New Patient This patient is new to me today: No - Critical Care Critical Care patient: No - Discharge Referral Referred to [facility] Med P.C.: No
--- NOTE | 2018-08-08 11:39 | PN ---
Progress Note, Physician Chief Complaint: AWAKE ALERT STILL WITH HIGH BP - Current Medication List Current Medications: Active Medications Chlorthalidone (Hygroton -) 25 mg PO DAILY [facility] Last Admin: 08/08/18 10:04 Dose: 25 mg Doxazosin Mesylate (Cardura -) 2 mg PO DAILY [facility] Last Admin: 08/08/18 10:03 Dose: 2 mg Hydralazine HCl (Apresoline -) 10 mg PO TID [facility] Labetalol HCl (Normodyne -) 400 mg PO BID [facility] Last Admin: 08/08/18 10:04 Dose: 400 mg Nifedipine (Procardia Xl -) 120 mg PO DAILY [facility] Last Admin: 08/08/18 10:05 Dose: 120 mg - Objective Vital Signs: Vital Signs Temperature 98.2 F 08/08/18 06:18 Pulse Rate 76 08/08/18 06:18 Respiratory Rate 16 08/08/18 06:18 Blood Pressure 158/110 H 08/08/18 06:18 O2 Sat by Pulse Oximetry (%) 100 08/07/18 09:00 Constitutional: Yes: Mild Distress Cardiovascular: Yes: Regular Rate and Rhythm Respiratory: Yes: WNL Gastrointestinal: Yes: WNL Genitourinary: Yes: WNL Musculoskeletal: Yes: WNL Extremities: Yes: WNL Edema: No Peripheral Pulses WNL: Yes Integumentary: Yes: WNL Wound/Incision: Yes: Clean/Dry Neurological: Yes: WNL Labs: CBC, BMP 08/07/18 05:30 08/07/18 05:30 Problem List - Problems (1) CKD (chronic kidney disease) Code(s): N18.9 - CHRONIC KIDNEY DISEASE, UNSPECIFIED Qualifiers: Chronic kidney disease stage: unspecified stage Qualified Code(s): N18.9 - Chronic kidney disease, unspecified (2) High blood pressure Code(s): I10 - ESSENTIAL (PRIMARY) HYPERTENSION Qualifiers: Hypertension type: unspecified Qualified Code(s): I10 - Essential (primary ) hypertension (3) Lupus (systemic lupus erythematosus) Code(s): M32.9 - SYSTEMIC LUPUS ERYTHEMATOSUS, UNSPECIFIED Qualifiers: Systemic lupus erythematosus type: unspecified Systemic lupus erythematosus organ involvement: unspecified Qualified Code(s): M32.9 - Systemic lupus erythematosus, unspecified (4) JENNIFFER (acute kidney injury) Code(s): N17.9 - ACUTE KIDNEY FAILURE, UNSPECIFIED (5) Chest pain Code(s): R07.9 - CHEST PAIN, UNSPECIFIED Qualifiers: Chest pain type: chest pain on breathing Qualified Code(s): R07.1 - Chest pain on breathing (6) Essential hypertension Code(s): I10 - ESSENTIAL (PRIMARY) HYPERTENSION (7) Hypertensive emergency Code(s): I10 - ESSENTIAL (PRIMARY) HYPERTENSION Assessment/Plan ADDING CHLORTHALIDONE 25MG DAILY CARDIOLOGY F/U APPRECIATED TELE-MONITORING PATIENT NON-COMPLIANT WITH FOLLOW UP EXAMS OUTPATIENT AND INADHERENT TO MEDICATIONS CONSIDERING PSYCHIATRY EVAL
[2018-08-08] MEDS ORDERED: hydrALAZINE HCL 10 MG TABLET PO SCH (14:00)
--- NOTE | 2018-08-08 15:15 | PN ---
Teaching Attending Note Name of Resident: Tracy Jimenez Samanthaleno (Nephrology) ATTENDING PHYSICIAN STATEMENT I saw and evaluated the patient. I reviewed the resident's note and discussed the case with the resident. I agree with the resident's findings and plan as documented. Renal Pt seen and examined at bedside. He is awake and alert. He denies dysuria or hematuria. Current Medications Generic Name Dose Route Start Last Admin Trade Name Freq PRN Reason Stop Dose Admin Chlorthalidone 25 mg 08/07/18 10:15 08/08/18 10:04 Hygroton - PO 25 mg DAILY TRES Administration Doxazosin Mesylate 2 mg 08/06/18 10:00 08/08/18 10:03 Cardura - PO 2 mg DAILY TRES Administration Hydralazine HCl 10 mg 08/08/18 14:00 08/08/18 14:00 Apresoline - PO Not Given TID TRES Labetalol HCl 400 mg 08/07/18 10:00 08/08/18 10:04 Normodyne - PO 400 mg BID TRES Administration Nifedipine 120 mg 08/08/18 10:00 08/08/18 10:05 Procardia Xl - PO 120 mg DAILY TRES Administration Laboratory Tests 08/07/18 05:30 Creatinine 4.2 H Last Vital Signs Temp Pulse Resp BP Pulse Ox 98.2 F 70 16 114/76 100 08/08/18 10:00 08/08/18 13:57 08/08/18 10:00 08/08/18 13:57 08/08/18 09:00 cardio s1s2 reg pulm clear GI soft ext neg edema neuro awake and alert Impression 1. CKD 2. raynauds 3. hypertensive urgency 4. non compliance 5. aortic aneurysm Plan - hold afternoon hydralazine - monitor bp, which is improved - avoid hypotension - cardio follow up - monitor renal function, he will follow with Dr Arzate after discharge Dr Cordova Problem List - Problems (1) CKD (chronic kidney disease) Code(s): N18.9 - CHRONIC KIDNEY DISEASE, UNSPECIFIED Qualifiers: Chronic kidney disease stage: unspecified stage Qualified Code(s): N18.9 - Chronic kidney disease, unspecified (2) High blood pressure Code(s): I10 - ESSENTIAL (PRIMARY) HYPERTENSION Qualifiers: Hypertension type: unspecified Qualified Code(s): I10 - Essential (primary ) hypertension
[2018-08-09] MEDS ORDERED: LABETALOL HCL 200 MG TABLET (FP) PO ONE (01:32)
[2018-08-09 07:56] LABS: BASO % 0.7 % (0-2.0); HEMATOCRIT 35.8 % (35.4-49); HEMOGLOBIN 12.5 GM/dL (11.7-16.9); LYMPH % 16.4 % (8-40); MCH 30.7 pg (25.7-33.7); MCHC 35.1 g/dl (32.0-35.9); MEAN CELL VOLUME 87.6 fl (80-96); MEAN PLT VOLUME 9.3 fl (7.5-11.1); MONO % 7.6 % (3.8-10.2); NEUT % 59.3 % (42.8-82.8); PLATELET COUNT 211 K/MM3 (134-434); RBC 4.08 M/mm3 (4.00-5.60); WHITE BLOOD COUNT 8.8 K/mm3 (4.0-10.0)
[2018-08-09 08:28] LABS: ALBUMIN 3.5 g/dl (3.4-5.0); ALK PHOS 68 U/L (45-117); ANION GAP 8 MMOL/L (8-16); BILIRUBIN,TOTAL 0.5 mg/dL (0.2-1); BLOOD UREA NITROGEN 54 mg/dL (7-18); CHLORIDE 102 mmol/L (98-107); CO2 28 mmol/L (21-32); CREATININE 4.5 mg/dL (0.55-1.3); GLUCOSE,RANDOM 71 mg/dL (74-106); MAGNESIUM 2.6 mg/dL (1.8-2.4); PHOSPHOROUS 6.3 mg/dL (2.5-4.9); POTASSIUM 3.8 mmol/L (3.5-5.1); SGOT/AST 24 U/L (15-37); SGPT/ALT 27 U/L (13-61); SODIUM 139 mmol/L (136-145); TOT PROT 6.8 g/dl (6.4-8.2)
--- NOTE | 2018-08-09 08:46 | PN ---
Progress Note, Physician Chief Complaint: Yesterday late afternoon, BP started to dip rather quickly Hydralazine was d/c'd Evening Labetalol held This AM, BP back to 160/110 Denies CP, SOB, headache or Neuro sx Wants to go home. History of Present Illness: TELE: NSR, NSST changes. - Current Medication List Current Medications: Active Medications Chlorthalidone (Hygroton -) 25 mg PO DAILY [facility] Last Admin: 08/08/18 10:04 Dose: 25 mg Doxazosin Mesylate (Cardura -) 2 mg PO DAILY [facility] Last Admin: 08/08/18 10:03 Dose: 2 mg Labetalol HCl (Normodyne -) 400 mg PO BID [facility] Last Admin: 08/08/18 10:04 Dose: 400 mg Nifedipine (Procardia Xl -) 120 mg PO DAILY [facility] Last Admin: 08/08/18 10:05 Dose: 120 mg - Objective Vital Signs: Vital Signs Temperature 98.2 F 08/08/18 10:00 Pulse Rate 58 L 08/09/18 06:00 Respiratory Rate 20 08/09/18 06:00 Blood Pressure 168/104 H 08/09/18 06:00 O2 Sat by Pulse Oximetry (%) 100 08/08/18 21:00 Constitutional: Yes: No Distress, Calm Eyes: Yes: Conjunctiva Clear HENT: Yes: Atraumatic Cardiovascular: Yes: Regular Rate and Rhythm Respiratory: Yes: CTA Bilaterally Gastrointestinal: Yes: Soft (no renal bruits. No masses.) Edema: No Peripheral Pulses: Left Radial: 2+, Right Radial: 2+, Left Femoral: 2+, Right Femoral: 2+ Neurological: Yes: Alert, Oriented ...Motor Strength: WNL Labs: CBC, BMP 08/09/18 05:30 08/09/18 05:30 Laboratory Tests 08/09/18 08/09/18 05:30 05:30 WBC 8.8 Hgb 12.5 Hct 35.8 Plt Count 211 Sodium 139 Potassium 3.8 BUN 54 H Creatinine 4.5 H - ....Imaging EKG: Image Reviewed Assessment/Plan IMP: Hypertensive urgency in setting of medication nonadherence- initial rebound effect CKD Abnl ECG Ascending aortic aneursym Possible underlying autoimmune dz REC: 1. D/C hydralazine. Resume Labetalol 400 BID. Procardia XL 90 mg qam- evening dose 30mg. Very labile BP. Consider using Catapress TTS patch, may be easier for compliance. If this is opted for, some of current PO meds (chlorthalidone/ Procardia) will need to be reduced or held. 2. Echo to evaluate EF and ascending aorta shows no change. Low normal EF with mild aortic dilatation. 3. Renal consult appreciated 4. Elevated TnI likely secondary to hypertensive heart disease and subendocardial ischemia secondary to elevated afterolad. Recent normal stress test. 5. Daily ECG/Tele to observe heart rate response to Labetalol titration and close monitoring BP.
[2018-08-09] MEDS ORDERED: PT OWN MED DRAWER 7, Y5N ONE (09:19)
[2018-08-09] MEDS: LABETALOL HCL 200 MG TABLET (FP) PO SCH ×2 (09:42→21:47)
[2018-08-09] MEDS: NIFEdipine E.R 60 MG TABLET (UD) PO SCH ×2 (09:42→21:50)
[2018-08-09] MEDS: DOXAZOSIN MESYLATE 2 MG TABLET (FP) PO SCH (09:43)
[2018-08-09] MEDS: CHLORTHALIDONE 25 MG TABLET PO SCH (09:43)
--- NOTE | 2018-08-09 12:52 | PN ---
Progress Note, Physician History of Present Illness: Pt seen and examined at bedside. He is awake and alert. He denies shortness of breath. He denies dysuria. - Current Medication List Current Medications: Active Medications Chlorthalidone (Hygroton -) 25 mg PO DAILY [facility] Last Admin: 08/09/18 09:43 Dose: 25 mg Doxazosin Mesylate (Cardura -) 2 mg PO DAILY [facility] Last Admin: 08/09/18 09:43 Dose: 2 mg Labetalol HCl (Normodyne -) 400 mg PO BID [facility] Last Admin: 08/09/18 09:42 Dose: 400 mg Nifedipine (Procardia Xl -) 60 mg PO BID [facility] Last Admin: 08/09/18 09:42 Dose: 60 mg - Objective Vital Signs: Vital Signs Temperature 97 F L 08/09/18 10:00 Pulse Rate 63 08/09/18 10:00 Respiratory Rate 20 08/09/18 10:00 Blood Pressure 180/120 H 08/09/18 10:00 O2 Sat by Pulse Oximetry (%) 100 08/09/18 09:00 Constitutional: Yes: Calm Eyes: Yes: Conjunctiva Clear HENT: Yes: Atraumatic Neck: Yes: Supple Cardiovascular: Yes: S1, S2 Respiratory: Yes: CTA Bilaterally Gastrointestinal: Yes: Soft Genitourinary: Yes: WNL Musculoskeletal: Yes: WNL Edema: No Neurological: Yes: Oriented Psychiatric: Yes: Oriented Labs: CBC, BMP 08/09/18 05:30 08/09/18 05:30 Problem List - Problems (1) CKD (chronic kidney disease) Code(s): N18.9 - CHRONIC KIDNEY DISEASE, UNSPECIFIED Qualifiers: Chronic kidney disease stage: unspecified stage Qualified Code(s): N18.9 - Chronic kidney disease, unspecified (2) High blood pressure Code(s): I10 - ESSENTIAL (PRIMARY) HYPERTENSION Qualifiers: Hypertension type: unspecified Qualified Code(s): I10 - Essential (primary ) hypertension Assessment/Plan Current Medications Generic Name Dose Route Start Last Admin Trade Name Freq PRN Reason Stop Dose Admin Chlorthalidone 25 mg 08/07/18 10:15 08/09/18 09:43 Hygroton - PO 25 mg DAILY [facility] Administration Doxazosin Mesylate 2 mg 08/06/18 10:00 08/09/18 09:43 Cardura - PO 2 mg DAILY TRES Administration Labetalol HCl 400 mg 08/07/18 10:00 08/09/18 09:42 Normodyne - PO 400 mg BID TRES Administration Nifedipine 60 mg 08/09/18 10:00 08/09/18 09:42 Procardia Xl - PO 60 mg BID TRES Administration Impression 1. CKD 2. raynauds 3. hypertensive urgency 4. non compliance 5. aortic aneurysm Plan - cont to monitor bp - cardio input appreciated - procardia dose adjusted - will need a more stable bp before discharge - he had a good response to hydralazine, perhaps restarting a small dose and decreasing the labetalol may help - compliance has been a problem as he often stops taking his meds
--- NOTE | 2018-08-09 13:46 | PN ---
Progress Note, Physician Chief Complaint: HTN urgnecy CKD Raynaud's History of Present Illness: Previous notes and events reviewed awake and alert NAD denies chest pain, palpitations, SOB c/o fatigue and dizziness this afternoon with BP 112/80, same complaint happened yesterday, EKG performed and spoke with supervisor furnace room Dr Suarez - Current Medication List Current Medications: Active Medications Chlorthalidone (Hygroton -) 25 mg PO DAILY [facility] Last Admin: 08/09/18 09:43 Dose: 25 mg Doxazosin Mesylate (Cardura -) 2 mg PO DAILY [facility] Last Admin: 08/09/18 09:43 Dose: 2 mg Labetalol HCl (Normodyne -) 400 mg PO BID [facility] Last Admin: 08/09/18 09:42 Dose: 400 mg Nifedipine (Procardia Xl -) 60 mg PO BID [facility] Last Admin: 08/09/18 09:42 Dose: 60 mg - Objective Vital Signs: Vital Signs Temperature 97 F L 08/09/18 10:00 Pulse Rate 63 08/09/18 10:00 Respiratory Rate 20 08/09/18 10:00 Blood Pressure 180/120 H 08/09/18 10:00 O2 Sat by Pulse Oximetry (%) 100 08/09/18 09:00 Constitutional: Yes: Well Nourished, No Distress, Calm Eyes: Yes: Conjunctiva Clear Neck: Yes: Supple Cardiovascular: Yes: Regular Rate and Rhythm Respiratory: Yes: Regular, CTA Bilaterally Gastrointestinal: Yes: Normal Bowel Sounds, Soft Musculoskeletal: Yes: WNL Extremities: Yes: WNL Edema: No Neurological: Yes: Alert, Oriented Psychiatric: Yes: Alert, Oriented Labs: CBC, BMP 08/09/18 05:30 08/09/18 05:30 <Kaci Mcfadden - Last Filed: 08/09/18 14:50> - Current Medication List Current Medications: Active Medications Doxazosin Mesylate (Cardura -) 1 mg PO DAILY [facility] Labetalol HCl (Normodyne -) 300 mg PO BID [facility] Nifedipine (Procardia Xl -) 60 mg PO BID [facility] Last Admin: 08/09/18 09:42 Dose: 60 mg - Objective Vital Signs: Vital Signs Temperature 97.9 F 08/09/18 17:24 Pulse Rate 64 08/09/18 17:24 Respiratory Rate 20 08/09/18 17:24 Blood Pressure 150/108 H 08/09/18 17:24 O2 Sat by Pulse Oximetry (%) 100 08/09/18 09:00 Labs: CBC, BMP 08/09/18 05:30 08/09/18 05:30 <Arcadio Gutierrez - Last Filed: 08/09/18 21:04> Problem List - Problems (1) CKD (chronic kidney disease) Code(s): N18.9 - CHRONIC KIDNEY DISEASE, UNSPECIFIED Qualifiers: Chronic kidney disease stage: unspecified stage Qualified Code(s): N18.9 - Chronic kidney disease, unspecified (2) Essential hypertension Code(s): I10 - ESSENTIAL (PRIMARY) HYPERTENSION (3) Hypertensive emergency Code(s): I10 - ESSENTIAL (PRIMARY) HYPERTENSION (4) Raynaud phenomenon Code(s): I73.00 - RAYNAUD'S SYNDROME WITHOUT GANGRENE Qualifiers: Raynaud?s-associated gangrene presence: without gangrene Qualified Code(s) : I73.00 - Raynaud's syndrome without gangrene <Kaci Mcfadden - Last Filed: 08/09/18 14:50> - Problems (1) CKD (chronic kidney disease) Code(s): N18.9 - CHRONIC KIDNEY DISEASE, UNSPECIFIED Qualifiers: Chronic kidney disease stage: unspecified stage Qualified Code(s): N18.9 - Chronic kidney disease, unspecified (2) High blood pressure Code(s): I10 - ESSENTIAL (PRIMARY) HYPERTENSION Qualifiers: Hypertension type: unspecified Qualified Code(s): I10 - Essential (primary ) hypertension (3) Lupus (systemic lupus erythematosus) Code(s): M32.9 - SYSTEMIC LUPUS ERYTHEMATOSUS, UNSPECIFIED Qualifiers: Systemic lupus erythematosus type: unspecified Systemic lupus erythematosus organ involvement: unspecified Qualified Code(s): M32.9 - Systemic lupus erythematosus, unspecified (4) JENNIFFER (acute kidney injury) Code(s): N17.9 - ACUTE KIDNEY FAILURE, UNSPECIFIED (5) Chest pain Code(s): R07.9 - CHEST PAIN, UNSPECIFIED Qualifiers: Chest pain type: chest pain on breathing Qualified Code(s): R07.1 - Chest pain on breathing (6) Essential hypertension Code(s): I10 - ESSENTIAL (PRIMARY) HYPERTENSION (7) Hypertensive emergency Code(s): I10 - ESSENTIAL (PRIMARY) HYPERTENSION <Arcadio Gutierrez - Last Filed: 08/09/18 21:04> Assessment/Plan -cardiology on board -Spoke with Dr Caldera in regards to patient complaint and he recommend discontinue chlorthalidone, decrease dose of Labetolol 300mg BID, and decrease dose of Doxazosin to 1mg qd -monitor BP q4h -tele monitoring -cont with nifedipine, labetolol, doxazosin -BP q4h -nephrology on board -BUN/Cr elev, will trend -dvt ppx <Kaci Mcfadden - Last Filed: 08/09/18 14:50> I HAVE EXAMINED THE PATIENT AND AGREE WITH ABOVE NOTE <Arcadio Gutierrez - Last Filed: 08/09/18 21:04>
--- NOTE | 2018-08-09 15:21 | EKG ---
Test Reason : Blood Pressure : / mmHG Vent. Rate : 073 BPM Atrial Rate : 073 BPM P-R Int : 156 ms QRS Dur : 098 ms QT Int : 438 ms P-R-T Axes : 054 066 -68 degrees QTc Int : 482 ms POOR DATA QUALITY, INTERPRETATION MAY BE ADVERSELY AFFECTED NORMAL SINUS RHYTHM T WAVE ABNORMALITY, CONSIDER INFEROLATERAL ISCHEMIA PROLONGED QT ABNORMAL ECG WHEN COMPARED WITH ECG OF 05-AUG-2018 21:04, T WAVE INVERSION NOW EVIDENT IN LATERAL LEADS Confirmed by JABARI OLIVER, VAL ([id number]) on 08/09/2018 3:21:25 PM Referred By: Confirmed By:VAL BARBOZA MD
[2018-08-10 08:02] LABS: HEMOGLOBIN 12.5 GM/dL (11.7-16.9); MCH 30.6 pg (25.7-33.7); MCHC 34.8 g/dl (32.0-35.9); PLATELET COUNT 210 K/MM3 (134-434); RBC 4.09 M/mm3 (4.00-5.60); RDW 13.8 % (11.9-15.9); WHITE BLOOD COUNT 8.9 K/mm3 (4.0-10.0)
[2018-08-10] MEDS: LABETALOL HCL 200 MG TABLET (FP) PO SCH ×3 (08:47→21:57)
[2018-08-10] MEDS: NIFEdipine E.R 60 MG TABLET (UD) PO SCH ×3 (08:48→21:57)
[2018-08-10 08:52] LABS: ALBUMIN 3.4 g/dl (3.4-5.0); ALK PHOS 70 U/L (45-117); ANION GAP 12 MMOL/L (8-16); BILIRUBIN,TOTAL 0.4 mg/dL (0.2-1); BLOOD UREA NITROGEN 62 mg/dL (7-18); CALCIUM 8.7 mg/dL (8.5-10.1); CHLORIDE 103 mmol/L (98-107); CO2 25 mmol/L (21-32); CREATININE 4.8 mg/dL (0.55-1.3); GLUCOSE,RANDOM 77 mg/dL (74-106); POTASSIUM 3.7 mmol/L (3.5-5.1); SGOT/AST 27 U/L (15-37); SGPT/ALT 30 U/L (13-61); SODIUM 141 mmol/L (136-145); TOT PROT 6.6 g/dl (6.4-8.2)
[2018-08-10] MEDS ORDERED: PT OWN MED DRAWER 7, Y5N ONE (09:49)
[2018-08-10] MEDS: DOXAZOSIN MESYLATE 1 MG TABLET PO SCH (10:20)
--- NOTE | 2018-08-10 11:33 | PN ---
Progress Note, Physician Chief Complaint: A&OX3; no compliants except for wanting to go home today. He does say that, once every few days, he feels a mild ache at the right sternal area whilte at reswt that lasts "one second". History of Present Illness: The patient is a 27M w/ a history of CKD,HTN ?dilated ascending thoracic aorta , diastolic CHF, s/p ?pericarditis 2 yrs ago, Abel's kelin, who presents for evaluation of acute HTN w/ associated BRADFORD for 1 day. The patient reports that he ran out of his labetalol 3d ago. He went to the pharmacy, who was out of the medication, and he has not had it since. He states that he checks his BP at home, which is how he knew it was high. He reports that his only associated symptoms are a current, global, non-radiating, throbbing BRADFORD and intermittent L flank pain that does not radiate. He denies a history of renal stones. He tried taking Tylenol 650mg PO just prior to arrival with little relief so far. Denies fevers/chills, vision changes, chest pain, SOB, abdominal pain, N/V/C/D, or changes in sensation Pt is tall; he says Maran's, sarcoidosis were ruled out. Hx aortic dilatation.Abel's. - Current Medication List Current Medications: Active Medications Doxazosin Mesylate (Cardura -) 1 mg PO DAILY [facility] Last Admin: 08/10/18 10:20 Dose: 1 mg Labetalol HCl (Normodyne -) 300 mg PO BID [facility] Last Admin: 08/10/18 08:47 Dose: 300 mg Nifedipine (Procardia Xl -) 60 mg PO BID [facility] Last Admin: 08/10/18 08:48 Dose: 60 mg - Objective Vital Signs: Vital Signs Temperature 97.5 F L 08/10/18 09:00 Pulse Rate 65 08/10/18 09:00 Respiratory Rate 18 08/10/18 09:00 Blood Pressure 180/110 H 08/10/18 09:00 O2 Sat by Pulse Oximetry (%) 100 08/10/18 09:00 Constitutional: Yes: Anxious Eyes: Yes: WNL HENT: Yes: WNL Neck: Yes: WNL Respiratory: Yes: WNL Gastrointestinal: Yes: WNL ...Rectal Exam: Yes: Deferred Genitourinary: No: Anuria Breast(s): Yes: WNL Musculoskeletal: Yes: WNL Extremities: Yes: WNL Edema: No Peripheral Pulses WNL: Yes Integumentary: Yes: WNL Neurological: Yes: WNL Psychiatric: Yes: WNL Labs: CBC, BMP 08/10/18 06:38 08/10/18 06:38 Abnormal Lab Results 08/10/18 08/10/18 08/11/18 06:38 20:45 03:30 BUN 62 H Creatinine 4.8 H Troponin I 0.11 H 0.12 H Total LDL Cholesterol 124 H 08/11/18 08:50 BUN Creatinine Troponin I 0.09 H Total LDL Cholesterol - ....Imaging Other: Image Reviewed (telemetry: NSR) Problem List - Problems (1) Essential hypertension Assessment/Plan: BP 170/100 mmHg this morining, about an hour after morning medications. F/u BP serially (tendency to precipitous drops in pm). Pt understands the need to stay in hospital for at least another day. Code(s): I10 - ESSENTIAL (PRIMARY) HYPERTENSION (2) Raynaud phenomenon Code(s): I73.00 - RAYNAUD'S SYNDROME WITHOUT GANGRENE Qualifiers: Raynaud?s-associated gangrene presence: without gangrene Qualified Code(s) : I73.00 - Raynaud's syndrome without gangrene (3) Thyroid disease Assessment/Plan: f/u TSH Code(s): E07.9 - DISORDER OF THYROID, UNSPECIFIED (4) Hypogonadism Assessment/Plan: hx low FSH Code(s): [id number] - (5) Dilation of aorta Assessment/Plan: mild aortic and ascending aortic dilatation on CT, rel. unchanged from 2016; nonemergent MRI?MRA was recommended. BP control is essential; on labetalol (for BP control and decrease shear force). Code(s): I77.819 - AORTIC ECTASIA, UNSPECIFIED SITE (6) Acute on chronic renal failure Assessment/Plan: increasing Cr. F/u with pharmacy manager. Code(s): N17.9 - ACUTE KIDNEY FAILURE, UNSPECIFIED; N18.9 - CHRONIC KIDNEY DISEASE, UNSPECIFIED
--- NOTE | 2018-08-10 14:00 | PN ---
Progress Note, Physician History of Present Illness: Pt seen and examined at bedside. He is awake and alert. He denies shortness of breath. - Current Medication List Current Medications: Active Medications Doxazosin Mesylate (Cardura -) 1 mg PO DAILY [facility] Last Admin: 08/10/18 10:20 Dose: 1 mg Labetalol HCl (Normodyne -) 300 mg PO BID [facility] Last Admin: 08/10/18 12:53 Dose: 300 mg Nifedipine (Procardia Xl -) 60 mg PO BID [facility] Last Admin: 08/10/18 12:54 Dose: 60 mg - Objective Vital Signs: Vital Signs Temperature 97.5 F L 08/10/18 09:00 Pulse Rate 65 08/10/18 09:00 Respiratory Rate 18 08/10/18 09:00 Blood Pressure 180/110 H 08/10/18 09:00 O2 Sat by Pulse Oximetry (%) 100 08/10/18 09:00 Constitutional: Yes: Calm Eyes: Yes: Conjunctiva Clear HENT: Yes: Atraumatic Cardiovascular: Yes: S1, S2 Respiratory: Yes: CTA Bilaterally Gastrointestinal: Yes: Soft Genitourinary: Yes: WNL Musculoskeletal: Yes: WNL Edema: No Neurological: Yes: Oriented Psychiatric: Yes: Oriented Labs: CBC, BMP 08/10/18 06:38 08/10/18 06:38 Problem List - Problems (1) CKD (chronic kidney disease) Code(s): N18.9 - CHRONIC KIDNEY DISEASE, UNSPECIFIED Qualifiers: Chronic kidney disease stage: unspecified stage Qualified Code(s): N18.9 - Chronic kidney disease, unspecified (2) High blood pressure Code(s): I10 - ESSENTIAL (PRIMARY) HYPERTENSION Qualifiers: Hypertension type: unspecified Qualified Code(s): I10 - Essential (primary ) hypertension Assessment/Plan Current Medications Generic Name Dose Route Start Last Admin Trade Name Freq PRN Reason Stop Dose Admin Doxazosin Mesylate 1 mg 08/10/18 10:00 08/10/18 10:20 Cardura - PO 1 mg DAILY [facility] Administration Labetalol HCl 300 mg 08/09/18 22:00 08/10/18 12:53 Normodyne - PO 300 mg BID [facility] Administration Nifedipine 60 mg 08/09/18 10:00 08/10/18 12:54 Procardia Xl - PO 60 mg BID [facility] Administration Impression 1. CKD 2. raynauds 3. hypertensive urgency 4. non compliance 5. aortic aneurysm Plan - bp remains labile - chlorthalidone held - monitor on current regiment - pt does not think that he will remember to wear a patch and he would prefer not to use one - compliance has been a problem as he often stops taking his meds - repeat bp as he took his meds - will need close renal follow up after discharge
[2018-08-10 17:11] LABS: CHOLESTEROL 195 mg/dL (50-200); HDL CHOLESTEROL 46 mg/dL (40-60); TRIGLYCERIDES 123 mg/dL (0-150)
--- NOTE | 2018-08-10 19:40 | PN ---
Progress Note, Physician Chief Complaint: Uncontrolled HTN CKD History of Present Illness: Rebound HTN from stopping his BP meds because he ran out. SBP elevated with drops in the afternoon - Current Medication List Current Medications: Active Medications Doxazosin Mesylate (Cardura -) 1 mg PO DAILY [facility] Last Admin: 08/10/18 10:20 Dose: 1 mg Labetalol HCl (Normodyne -) 300 mg PO BID [facility] Last Admin: 08/10/18 12:53 Dose: 300 mg Nifedipine (Procardia Xl -) 60 mg PO BID [facility] Last Admin: 08/10/18 12:54 Dose: 60 mg - Objective Vital Signs: Vital Signs Temperature 97.6 F 08/10/18 17:00 Pulse Rate 69 08/10/18 17:00 Respiratory Rate 18 08/10/18 17:00 Blood Pressure 152/95 08/10/18 17:00 O2 Sat by Pulse Oximetry (%) 100 08/10/18 09:00 Constitutional: Yes: Well Nourished, No Distress, Calm Cardiovascular: Yes: Regular Rate and Rhythm Respiratory: Yes: Regular Gastrointestinal: Yes: Normal Bowel Sounds, Soft Musculoskeletal: Yes: WNL Extremities: Yes: WNL Edema: No Peripheral Pulses WNL: Yes Neurological: Yes: Alert, Oriented Psychiatric: Yes: Alert, Oriented Labs: CBC, BMP 08/10/18 06:38 08/10/18 06:38 Problem List - Problems (1) Dilation of aorta Assessment/Plan: -Mild dilation of aortic root on last echo 08/06/18 Code(s): I77.819 - AORTIC ECTASIA, UNSPECIFIED SITE (2) Hyperlipidemia Assessment/Plan: -start rosuvastatin 5 mg po daily Code(s): E78.5 - HYPERLIPIDEMIA, UNSPECIFIED (3) Uncontrolled hypertension Assessment/Plan: -On Labetalol 300 mg po BID -Cardura 1 mg po daily -Nifedipine 60 mg po bid -monitor BP for now -Cardiology on board Code(s): I10 - ESSENTIAL (PRIMARY) HYPERTENSION (4) Acute on chronic renal failure Assessment/Plan: -Nephrology on board -Cr at baseline Code(s): N17.9 - ACUTE KIDNEY FAILURE, UNSPECIFIED; N18.9 - CHRONIC KIDNEY DISEASE, UNSPECIFIED Assessment/Plan see problem list
--- NOTE | 2018-08-10 21:15 | HOSP ---
Subjective - Review of Symptoms Events since last encounter: Hospitalist Encounter Notified by RN that the patient was having L- sided CP during deep inspiration. Subjective: Arrived to bedside, patient is AAOx3, reports sharp pain to LCW with deep inspiration. Patient denies cough at present See PE Plan: Stat EKG Stat Trop I Cardiovascular: Yes: Chest Pain Physical Examination Vital Signs: Vital Signs Temperature 98.0 F 08/10/18 20:15 Pulse Rate 65 08/10/18 20:15 Respiratory Rate 18 08/10/18 20:15 Blood Pressure 164/106 H 08/10/18 20:15 O2 Sat by Pulse Oximetry (%) 100 08/10/18 09:00 Constitutional: Yes: No Distress, Calm, Thin Eyes: Yes: WNL, Conjunctiva Clear, EOM Intact, PERRL HENT: Yes: WNL, Atraumatic, Normocephalic Neck: Yes: WNL, Supple, Trachea Midline Cardiovascular: Yes: WNL, Regular Rate and Rhythm, S1, S2 Respiratory: Yes: WNL, Regular, CTA Bilaterally Extremities: Yes: WNL Edema: No Peripheral Pulses WNL: Yes Neurological: Yes: WNL, Alert, Oriented, Cran Nerves II-XII Intact ...Motor Strength: WNL Psychiatric: Yes: WNL, Alert, Oriented Labs: CBC, BMP 08/10/18 06:38 08/10/18 06:38 Hospitalist Encounter Assessment: This is a 27 y/o man with PMHx of CKD, Hypertension,?dilated Ascending Thoracic Aorta, Diastolic CHF, s/p ?Pericarditis 2 yrs ago, Reynaud's Phenomenon, who presents for evaluation of acute HTN w/ associated BRADFORD for 1 day. Outcome: EKG- no change compared to prior study Trop I: 0.11 slightly elevated from prior likely due to Hypertensive Heart Disease Patient declined pain medication Will continue to trend Trop I, and have primary team f/u in am
[2018-08-11] MEDS ORDERED: ACETAMINOPHEN 325 MG TABLET (FP) PO ONE (01:04)
[2018-08-11] MEDS ORDERED: PT OWN MED DRAWER 7, Y5N ONE (09:33)
[2018-08-11] MEDS: DOXAZOSIN MESYLATE 1 MG TABLET PO SCH (09:42)
[2018-08-11] MEDS: NIFEdipine E.R 60 MG TABLET (UD) PO SCH ×2 (09:42→21:23)
[2018-08-11] MEDS: LABETALOL HCL 200 MG TABLET (FP) PO SCH ×2 (09:42→21:23)
--- NOTE | 2018-08-11 13:35 | PN ---
Progress Note, Physician Chief Complaint: Hypertensive emergency CKD History of Present Illness: Rebound HTN from stopping his BP meds because he ran out. SBP elevated with drops in the afternoon Chest pain overnight, EKG done- no change, trops elevated, not sure if it's carole value in light of CKD Denies any chest pain now - Current Medication List Current Medications: Active Medications Doxazosin Mesylate (Cardura -) 1 mg PO DAILY [facility] Last Admin: 08/11/18 09:42 Dose: 1 mg Labetalol HCl (Normodyne -) 300 mg PO BID [facility] Last Admin: 08/11/18 09:42 Dose: 300 mg Nifedipine (Procardia Xl -) 60 mg PO BID [facility] Last Admin: 08/11/18 09:42 Dose: 60 mg - Objective Vital Signs: Vital Signs Temperature 97.8 F 08/11/18 10:00 Pulse Rate 64 08/11/18 10:00 Respiratory Rate 20 08/11/18 10:00 Blood Pressure 150/100 08/11/18 10:00 O2 Sat by Pulse Oximetry (%) 100 08/11/18 09:00 Constitutional: Yes: Well Nourished, No Distress, Calm Cardiovascular: Yes: Regular Rate and Rhythm Respiratory: Yes: Regular Gastrointestinal: Yes: Normal Bowel Sounds, Soft Musculoskeletal: Yes: WNL Extremities: Yes: WNL Edema: No Peripheral Pulses WNL: Yes Neurological: Yes: Alert, Oriented Psychiatric: Yes: Alert, Oriented Labs: CBC, BMP 08/10/18 06:38 08/10/18 06:38 Problem List - Problems (1) Uncontrolled hypertension Assessment/Plan: -On Labetalol 300 mg po BID -Cardura 1 mg po daily -Nifedipine 60 mg po bid -monitor BP for now -Cardiology on board Code(s): I10 - ESSENTIAL (PRIMARY) HYPERTENSION (2) Acute on chronic renal failure Assessment/Plan: -Nephrology on board -Cr at baseline Code(s): N17.9 - ACUTE KIDNEY FAILURE, UNSPECIFIED; N18.9 - CHRONIC KIDNEY DISEASE, UNSPECIFIED (3) Dilation of aorta Assessment/Plan: -Mild dilation of aortic root on last echo 08/06/18 Code(s): I77.819 - AORTIC ECTASIA, UNSPECIFIED SITE (4) Hyperlipidemia Assessment/Plan: -start Code(s): E78.5 - HYPERLIPIDEMIA, UNSPECIFIED Assessment/Plan See problem list
--- NOTE | 2018-08-11 18:14 | PN ---
Progress Note, Physician History of Present Illness: Pt seen and examined at bedside. He is awake and alert. He had chest pain last night. He currently says that he feels well and dose not have any pain. - Current Medication List Current Medications: Active Medications Doxazosin Mesylate (Cardura -) [address] [facility] Last Admin: 08/11/18 09:42 Dose: 1 mg Labetalol HCl (Normodyne -) [address] [facility] Last Admin: 08/11/18 09:42 Dose: 300 mg Nifedipine (Procardia Xl -) [address] [facility] Last Admin: 08/11/18 09:42 Dose: 60 mg Rosuvastatin Calcium (Crestor -) 5 mg PO [facility] - Objective Vital Signs: Vital Signs Temperature 97.9 F 08/11/18 14:00 Pulse Rate 66 08/11/18 14:00 Respiratory Rate 20 08/11/18 14:00 Blood Pressure 128/80 08/11/18 14:00 O2 Sat by Pulse Oximetry (%) 100 08/11/18 09:00 Constitutional: Yes: Calm Eyes: Yes: Conjunctiva Clear HENT: Yes: Atraumatic Neck: Yes: Supple Cardiovascular: Yes: S1, S2 Respiratory: Yes: CTA Bilaterally Gastrointestinal: Yes: Soft Genitourinary: Yes: WNL Musculoskeletal: Yes: WNL Edema: No Neurological: Yes: Oriented Psychiatric: Yes: Oriented Labs: CBC, BMP 08/10/18 06:38 08/10/18 06:38 Problem List - Problems (1) CKD (chronic kidney disease) Code(s): N18.9 - CHRONIC KIDNEY DISEASE, UNSPECIFIED Qualifiers: Chronic kidney disease stage: unspecified stage Qualified Code(s): N18.9 - Chronic kidney disease, unspecified (2) High blood pressure Code(s): I10 - ESSENTIAL (PRIMARY) HYPERTENSION Qualifiers: Hypertension type: unspecified Qualified Code(s): I10 - Essential (primary ) hypertension Assessment/Plan Current Medications Generic Name Dose Route Start Last Admin Trade Name Freq PRN Reason Stop Dose Admin Doxazosin Mesylate 1 mg 08/10/18 10:00 08/11/18 09:42 Cardura - PO [address] [facility] Administration Labetalol HCl 300 mg 08/09/18 22:00 08/11/18 09:42 Normodyne - PO 300 mg BID [facility] Administration Nifedipine 60 mg 08/09/18 10:00 08/11/18 09:42 Procardia Xl - PO 60 mg BID [facility] Administration Rosuvastatin Calcium 5 mg 08/11/18 22:00 Crestor - PO HS [facility] Impression 1. CKD 2. raynauds 3. hypertensive urgency 4. non compliance 5. aortic aneurysm Plan - cont to monitor bp - check bmp - cardiology follow up for chest pain - discussed compliance with pt - will follow
--- NOTE | 2018-08-11 18:28 | EKG ---
Test Reason : Blood Pressure : / mmHG Vent. Rate : 062 BPM Atrial Rate : 062 BPM P-R Int : 156 ms QRS Dur : 104 ms QT Int : 476 ms P-R-T Axes : 048 064 -52 degrees QTc Int : 483 ms NORMAL SINUS RHYTHM T WAVE ABNORMALITY, CONSIDER INFERIOR ISCHEMIA ABNORMAL ECG WHEN COMPARED WITH ECG OF 10-AUG-2018 20:46, NO SIGNIFICANT CHANGE WAS FOUND Confirmed by ALEXANDER OLIVER, LALA ([id number]) on 08/11/2018 6:27:49 PM Referred By: Jose OSBORNE Confirmed By:LALA MUNOZ MD
--- NOTE | 2018-08-11 19:06 | EKG ---
Test Reason : Blood Pressure : / mmHG Vent. Rate : 061 BPM Atrial Rate : 061 BPM P-R Int : 154 ms QRS Dur : 102 ms QT Int : 486 ms P-R-T Axes : 046 055 -29 degrees QTc Int : 489 ms NORMAL SINUS RHYTHM T WAVE ABNORMALITY, CONSIDER INFERIOR ISCHEMIA ABNORMAL ECG WHEN COMPARED WITH ECG OF 09-AUG-2018 13:21, T WAVE INVERSION NO LONGER EVIDENT IN LATERAL LEADS Confirmed by ALEXANDER OLIVER, LALA ([id number]) on 08/11/2018 7:05:35 PM Referred By: Confirmed By:LALA MUNOZ MD
[2018-08-11] MEDS: ROSUVASTATIN CA 5 MG TABLET (FP) PO SCH (21:23)
--- NOTE | 2018-08-12 06:22 | PN ---
Progress Note, Physician Chief Complaint: A&OX3; denies chest pain or dyspnea; wants to take a shower. History of Present Illness: The patient is a 27 white man w/ a history of CKD,HTN, ?dilated ascending thoracic aorta, diastolic CHF, s/p ?pericarditis 2 yrs ago, Reynaud's disease, hyperlipidemia, who presents for evaluation of acute HTN w/ associated BRADFORD for 1 day. The patient reports that he ran out of his labetalol 3 days ago. He went to the pharmacy, who was out of the medication, and he has not had it since. He states that he checks his BP at home, which is how he knew it was high. He reports that his only associated symptoms are a current, global, non-radiating, throbbing BRADFORD and intermittent L flank pain that does not radiate. He denies a history of renal stones. He tried taking Tylenol 650mg PO just prior to arrival, with little relief so far. Denies fevers/chills, vision changes, chest pain, SOB, abdominal pain, N/V/C/D, or changes in sensation Pt is tall; he says Maran's, sarcoidosis were ruled out. Hx aortic dilatation; Reynaud's. - Current Medication List Current Medications: Active Medications Doxazosin Mesylate (Cardura -) 1 mg PO DAILY [facility] Last Admin: 08/11/18 09:42 Dose: 1 mg Labetalol HCl (Normodyne -) 300 mg PO BID [facility] Last Admin: 08/11/18 21:23 Dose: 300 mg Nifedipine (Procardia Xl -) 60 mg PO BID [facility] Last Admin: 08/11/18 21:23 Dose: 60 mg Rosuvastatin Calcium (Crestor -) 5 mg PO HS [facility] Last Admin: 08/11/18 21:23 Dose: 5 mg - Objective Vital Signs: Vital Signs Temperature 98.1 F 08/11/18 21:21 Pulse Rate 65 08/12/18 01:35 Respiratory Rate 08/12/18 01:35 Blood Pressure 146/94 08/12/18 01:35 O2 Sat by Pulse Oximetry (%) 100 08/11/18 21:00 Constitutional: Yes: No Distress Eyes: Yes: WNL HENT: Yes: WNL Neck: Yes: WNL Cardiovascular: Yes: Regular Rate and Rhythm, S1, S2 Respiratory: Yes: WNL Gastrointestinal: Yes: WNL ...Rectal Exam: Yes: Deferred Genitourinary: No: Anuria Breast(s): Yes: WNL Musculoskeletal: Yes: WNL Extremities: Yes: WNL Edema: No Peripheral Pulses WNL: Yes Integumentary: Yes: WNL Neurological: Yes: WNL ...Motor Strength: WNL Psychiatric: Yes: WNL Labs: CBC, BMP 08/10/18 06:38 08/10/18 06:38 Abnormal Lab Results 08/11/18 08:50 Troponin I 0.09 H TSH 9.31 H D Problem List - Problems (1) Essential hypertension Assessment/Plan: BP without profound drop yesterday in pm. Remains mildly elevated today. F/u serial BPs on present regimen. Maintain hydration. Code(s): I10 - ESSENTIAL (PRIMARY) HYPERTENSION (2) Raynaud phenomenon Code(s): I73.00 - RAYNAUD'S SYNDROME WITHOUT GANGRENE Qualifiers: Raynaud?s-associated gangrene presence: without gangrene Qualified Code(s) : I73.00 - Raynaud's syndrome without gangrene (3) Thyroid disease Assessment/Plan: TSH 9.4; f/u TFTs. Code(s): E07.9 - DISORDER OF THYROID, UNSPECIFIED (4) Hypogonadism Assessment/Plan: hx low FSH Code(s): [id number] - (5) Dilation of aorta Assessment/Plan: mild aortic and ascending aortic dilatation on CT, rel. unchanged from 2016; nonemergent MRI/MRA was recommended. BP control is essential; regimen includes labetalol (for BP control and decrease shear force). Code(s): I77.819 - AORTIC ECTASIA, UNSPECIFIED SITE (6) Acute on chronic renal failure Assessment/Plan: increasing Cr. F/u with farm management agent. Avoid dehydration. Code(s): N17.9 - ACUTE KIDNEY FAILURE, UNSPECIFIED; N18.9 - CHRONIC KIDNEY DISEASE, UNSPECIFIED (7) Hyperlipidemia Assessment/Plan: on statin. Code(s): E78.5 - HYPERLIPIDEMIA, UNSPECIFIED
[2018-08-12 08:15] LABS: ALBUMIN 3.6 g/dl (3.4-5.0); ALK PHOS 67 U/L (45-117); ANION GAP 11 MMOL/L (8-16); BILIRUBIN,TOTAL 0.4 mg/dL (0.2-1); BLOOD UREA NITROGEN 66 mg/dL (7-18); CALCIUM 8.7 mg/dL (8.5-10.1); CHLORIDE 100 mmol/L (98-107); CO2 27 mmol/L (21-32); CREATININE 4.8 mg/dL (0.55-1.3); GLUCOSE,RANDOM 76 mg/dL (74-106); POTASSIUM 3.6 mmol/L (3.5-5.1); SGOT/AST 24 U/L (15-37); SGPT/ALT 27 U/L (13-61); SODIUM 138 mmol/L (136-145)
--- NOTE | 2018-08-12 08:43 | PN ---
Progress Note, Physician Chief Complaint: Episode of chest pain was positional and pleuritic the other day Now resolved. Denies SOB. TELE: NSR. Overall, BP trend is improved. Still evening elevations but on average improved. - Current Medication List Current Medications: Active Medications Doxazosin Mesylate (Cardura -) 1 mg PO DAILY [facility] Last Admin: 08/11/18 09:42 Dose: 1 mg Labetalol HCl (Normodyne -) 300 mg PO BID [facility] Last Admin: 08/11/18 21:23 Dose: 300 mg Nifedipine (Procardia Xl -) 60 mg PO BID [facility] Last Admin: 08/11/18 21:23 Dose: 60 mg Rosuvastatin Calcium (Crestor -) 5 mg PO HS [facility] Last Admin: 08/11/18 21:23 Dose: 5 mg - Objective Vital Signs: Vital Signs Temperature 98.1 F 08/11/18 21:21 Pulse Rate 64 08/12/18 06:00 Respiratory Rate 20 08/12/18 06:00 Blood Pressure 152/96 08/12/18 06:00 O2 Sat by Pulse Oximetry (%) 100 08/11/18 21:00 Constitutional: Yes: No Distress Cardiovascular: Yes: Regular Rate and Rhythm Respiratory: Yes: CTA Bilaterally Gastrointestinal: Yes: Soft Edema: No Neurological: Yes: Alert, Oriented ...Motor Strength: WNL Labs: CBC, BMP 08/10/18 06:38 08/12/18 05:50 - ....Imaging EKG: Image Reviewed (NSR) Assessment/Plan IMP: Hypertensive urgency in setting of medication nonadherence- initial rebound effect CKD Abnl ECG Ascending aortic aneursym Possible underlying autoimmune dz REC: 1. Late afternoon spikes in BP last 2 days. Will add evening dose of Doxazosin. 2. Episode of CP appears to be MSK, or possibly pericardial/inflammatory. Will repeat echo 3. Renal consult appreciated- Creat remains overall stable. 4. Elevated TnI likely secondary to hypertensive heart disease and subendocardial ischemia secondary to elevated afterolad. Recent normal stress test.
[2018-08-12] MEDS ORDERED: PT OWN MED DRAWER 7, Y5N ONE ×2 (10:04→18:29)
[2018-08-12] MEDS: LABETALOL HCL 200 MG TABLET (FP) PO SCH ×2 (10:13→21:28)
[2018-08-12] MEDS: DOXAZOSIN MESYLATE 1 MG TABLET PO SCH ×2 (10:14→16:39)
[2018-08-12] MEDS: NIFEdipine E.R 60 MG TABLET (UD) PO SCH ×2 (10:14→21:28)
--- NOTE | 2018-08-12 12:45 | PN ---
Progress Note, Physician Chief Complaint: patient seen and examiend no CP no dyspnea to get echo today BP meds adjusted for elevated BP - Current Medication List Current Medications: Active Medications Doxazosin Mesylate (Cardura -) 1 mg PO BID@1000,1600 [facility] Last Admin: 08/12/18 10:14 Dose: 1 mg Labetalol HCl (Normodyne -) 300 mg PO BID [facility] Last Admin: 08/12/18 10:13 Dose: 300 mg Nifedipine (Procardia Xl -) 60 mg PO BID [facility] Last Admin: 08/12/18 10:14 Dose: 60 mg Rosuvastatin Calcium (Crestor -) 5 mg PO HS [facility] Last Admin: 08/11/18 21:23 Dose: 5 mg - Objective Vital Signs: Vital Signs Temperature 98.1 F 08/11/18 21:21 Pulse Rate 64 08/12/18 06:00 Respiratory Rate 20 08/12/18 06:00 Blood Pressure 152/96 08/12/18 06:00 O2 Sat by Pulse Oximetry (%) 100 08/11/18 21:00 Constitutional: Yes: Calm Cardiovascular: Yes: Regular Rate and Rhythm, S1, S2 Respiratory: Yes: CTA Bilaterally Gastrointestinal: Yes: Normal Bowel Sounds, Soft Edema: No Neurological: Yes: Alert, Oriented Labs: CBC, BMP 08/10/18 06:38 08/12/18 05:50 Problem List - Problems (1) High blood pressure Assessment/Plan: labetolol and doxepin and procardia will monitor BP if it is better today in evening then will dc home Code(s): I10 - ESSENTIAL (PRIMARY) HYPERTENSION Qualifiers: Hypertension type: unspecified Qualified Code(s): I10 - Essential (primary ) hypertension (2) CKD (chronic kidney disease) Assessment/Plan: renal on board teja need close follow up as outpatient Code(s): N18.9 - CHRONIC KIDNEY DISEASE, UNSPECIFIED
--- NOTE | 2018-08-12 14:51 | PN ---
Progress Note, Physician History of Present Illness: Pt seen and examined at bedside. He is awake and alert. He denies chest pain or headache. - Current Medication List Current Medications: Active Medications Doxazosin Mesylate (Cardura -) 1 mg PO BID@1000,1600 [facility] Last Admin: 08/12/18 10:14 Dose: 1 mg Labetalol HCl (Normodyne -) 300 mg PO BID [facility] Last Admin: 08/12/18 10:13 Dose: 300 mg Nifedipine (Procardia Xl -) 60 mg PO BID [facility] Last Admin: 08/12/18 10:14 Dose: 60 mg Rosuvastatin Calcium (Crestor -) 5 mg PO HS [facility] Last Admin: 08/11/18 21:23 Dose: 5 mg - Objective Vital Signs: Vital Signs Temperature 98.1 F 08/11/18 21:21 Pulse Rate 64 08/12/18 06:00 Respiratory Rate 20 08/12/18 06:00 Blood Pressure 152/96 08/12/18 06:00 O2 Sat by Pulse Oximetry (%) 100 08/11/18 21:00 Constitutional: Yes: Calm Eyes: Yes: Conjunctiva Clear HENT: Yes: Atraumatic Cardiovascular: Yes: S1, S2 Respiratory: Yes: CTA Bilaterally Gastrointestinal: Yes: Soft Genitourinary: Yes: WNL Musculoskeletal: Yes: WNL Edema: No Neurological: Yes: Oriented Psychiatric: Yes: Oriented Labs: CBC, BMP 08/10/18 06:38 08/12/18 05:50 Problem List - Problems (1) CKD (chronic kidney disease) Code(s): N18.9 - CHRONIC KIDNEY DISEASE, UNSPECIFIED Qualifiers: Chronic kidney disease stage: unspecified stage Qualified Code(s): N18.9 - Chronic kidney disease, unspecified (2) High blood pressure Code(s): I10 - ESSENTIAL (PRIMARY) HYPERTENSION Qualifiers: Hypertension type: unspecified Qualified Code(s): I10 - Essential (primary ) hypertension Assessment/Plan Current Medications Generic Name Dose Route Start Last Admin Trade Name Freq PRN Reason Stop Dose Admin Doxazosin Mesylate 1 mg 08/12/18 10:00 08/12/18 10:14 Cardura - PO 1 mg BID@1000,1600 [facility] Administration Labetalol HCl 300 mg 08/09/18 22:00 08/12/18 10:13 Normodyne - PO 300 mg BID [facility] Administration Nifedipine 60 mg 08/09/18 10:00 08/12/18 10:14 Procardia Xl - PO 60 mg BID [facility] Administration Rosuvastatin Calcium 5 mg 08/11/18 22:00 08/11/18 21:23 Crestor - PO 5 mg HS [facility] Administration Impression 1. CKD 2. raynauds 3. hypertensive urgency 4. non compliance 5. 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
--- NOTE | 2018-08-12 16:12 | ECHO ---
Name: LAUREEN RICE Exam:Adult Echocardiogram Study Date: 08/12/2018 03:28 PM Age: 27 yrs Reason For Study: Chest pain Height: 77 in Weight: 185 lb BSA: 2.2 m2 MMode/2D Measurements & Calculations IVSd: 1.1 cm Ao root diam: 3.3 cm LVIDd: 5.7 cm LA dimension: 3.9 cm LVIDs: 3.4 cm LVPWd: 1.1 cm EDV(Teich): 159.7 ml ESV(Teich): 48.5 ml Doppler Measurements & Calculations MV E max moses: 31.8 cm/sec Ao V2 max: 142.5 cm/sec MV A max moses: 56.3 cm/sec Ao max P.1 mmHg MV E/A: 0.57 Ao V2 mean: 100.4 cm/sec MV dec time: 0.19 sec Ao mean P.5 mmHg Ao V2 VTI: 26.9 cm LV V1 max P.2 mmHg MR max moses: 268.1 cm/sec LV V1 mean P.2 mmHg MR max P.0 mmHg LV V1 max: 74.0 cm/sec LV V1 mean: 53.4 cm/sec LV V1 VTI: 14.8 cm Med Peak E' Moses: 5.7 cm/sec Med E/e': 5.6 Lat Peak E' Moses: 5.5 cm/sec Lat E/e': 5.8 Procedure A complete two-dimensional transthoracic echocardiogram was performed (2D, M-mode, Doppler and color flow Doppler). Left Ventricle The left ventricle is normal in size. Left ventricular systolic function is normal. Ejection Fraction = 55- 60%. No regional wall motion abnormalities noted. Right Ventricle The right ventricle is normal size. The right ventricular systolic function is normal. Atria The left atrial size is normal. Right atrial size is normal. Mitral Valve The mitral valve is normal in structure and function. There is mild mitral regurgitation. Tricuspid Valve The tricuspid valve is normal in structure and function. There is mild tricuspid regurgitation. Aortic Valve The aortic valve is normal in structure and function. No aortic regurgitation is present. Pulmonic Valve The pulmonic valve is not well visualized. Mild pulmonic valvular regurgitation. Great Vessels The aortic root is normal size. Pericardium/Pleura There is no pericardial effusion. Interpretation Summary The left ventricle is normal in size. Left ventricular systolic function is normal. No regional wall motion abnormalities noted. Ejection Fraction = 55-60%. The right ventricular systolic function is normal. The left atrial size is normal. Right atrial size is normal. There is mild mitral regurgitation. There is mild tricuspid regurgitation. Mild pulmonic valvular regurgitation. There is no pericardial effusion. Toño Obrien MD 08/12/2018 04:11 PM
[2018-08-12] MEDS: ROSUVASTATIN CA 5 MG TABLET (FP) PO SCH (21:29)
[2018-08-13 07:38] LABS: ALBUMIN 3.7 g/dl (3.4-5.0); ALK PHOS 69 U/L (45-117); ANION GAP 11 MMOL/L (8-16); BILIRUBIN,TOTAL 0.4 mg/dL (0.2-1); BLOOD UREA NITROGEN 65 mg/dL (7-18); CALCIUM 8.9 mg/dL (8.5-10.1); CHLORIDE 100 mmol/L (98-107); CO2 27 mmol/L (21-32); CREATININE 4.6 mg/dL (0.55-1.3); GLUCOSE,RANDOM 80 mg/dL (74-106); POTASSIUM 3.6 mmol/L (3.5-5.1); SGOT/AST 24 U/L (15-37); SGPT/ALT 28 U/L (13-61); SODIUM 138 mmol/L (136-145); TOT PROT 7.1 g/dl (6.4-8.2)
--- NOTE | 2018-08-13 08:37 | PN ---
Progress Note, Physician - Current Medication List Current Medications: Active Medications Doxazosin Mesylate (Cardura -) 2 mg PO BID@1000,1600 [facility] Labetalol HCl (Normodyne -) 300 mg PO BID [facility] Last Admin: 08/12/18 21:28 Dose: 300 mg Nifedipine (Procardia Xl -) 60 mg PO BID [facility] Last Admin: 08/12/18 21:28 Dose: 60 mg Rosuvastatin Calcium (Crestor -) 5 mg PO HS [facility] Last Admin: 08/12/18 21:29 Dose: 5 mg - Objective Vital Signs: Vital Signs Temperature 97.4 F L 08/13/18 06:00 Pulse Rate 57 L 08/13/18 06:00 Respiratory Rate 20 08/13/18 06:00 Blood Pressure 161/99 08/13/18 06:00 O2 Sat by Pulse Oximetry (%) 100 08/12/18 21:20 Cardiovascular: Yes: Regular Rate and Rhythm Respiratory: Yes: Regular, CTA Bilaterally Gastrointestinal: Yes: Normal Bowel Sounds, Soft Labs: CBC, BMP 08/10/18 06:38 08/13/18 05:30 Problem List - Problems (1) Uncontrolled hypertension Assessment/Plan: : labetolol and procardia cardura increased to 2 mg bid will monitor BP if it is better today in evening then will dc home Code(s): I10 - ESSENTIAL (PRIMARY) HYPERTENSION (2) CKD (chronic kidney disease) Assessment/Plan: renal on board teja need close follow up as outpatient Code(s): N18.9 - CHRONIC KIDNEY DISEASE, UNSPECIFIED (3) Hyperlipidemia Assessment/Plan: on crestor Code(s): E78.5 - HYPERLIPIDEMIA, UNSPECIFIED (4) Chest pain Assessment/Plan: -resolved -cardio input appreciated Code(s): R07.9 - CHEST PAIN, UNSPECIFIED Qualifiers: Chest pain type: chest pain on breathing Qualified Code(s): R07.1 - Chest pain on breathing
--- NOTE | 2018-08-13 09:04 | PN ---
Progress Note, Physician Chief Complaint: evening blood pressure still elevated, but daytime much improved History of Present Illness: repeat echo without effusion - Current Medication List Current Medications: Active Medications Doxazosin Mesylate (Cardura -) 2 mg PO BID@1000,1600 [facility] Labetalol HCl (Normodyne -) 300 mg PO BID [facility] Last Admin: 08/12/18 21:28 Dose: 300 mg Nifedipine (Procardia Xl -) 60 mg PO BID [facility] Last Admin: 08/12/18 21:28 Dose: 60 mg Rosuvastatin Calcium (Crestor -) 5 mg PO HS [facility] Last Admin: 08/12/18 21:29 Dose: 5 mg - Objective Vital Signs: Vital Signs Temperature 97.4 F L 08/13/18 08:59 Pulse Rate 56 L 08/13/18 08:59 Respiratory Rate 20 08/13/18 08:59 Blood Pressure 166/111 H 08/13/18 08:59 O2 Sat by Pulse Oximetry (%) 100 08/12/18 21:20 Constitutional: Yes: No Distress, Calm Cardiovascular: Yes: Regular Rate and Rhythm Respiratory: Yes: CTA Bilaterally Gastrointestinal: Yes: Soft Edema: No Neurological: Yes: Alert, Oriented Labs: CBC, BMP 08/10/18 06:38 08/13/18 05:30 - ....Imaging EKG: Image Reviewed Assessment/Plan IMP: Hypertensive urgency in setting of medication nonadherence- initial rebound effect CKD Abnl ECG Ascending aortic aneursym Possible underlying autoimmune dz REC: 1. Late afternoon spikes in BP last 2 days. Increased BID dose doxazosin noted, will check orthostatics. 2. Episode of CP appears to be MSK, or possibly pericardial/inflammatory. Now resolved. Echo repeated, no effusion, no sig change 3. Renal consult appreciated- Creat remains overall stable. 4. Elevated TnI likely secondary to hypertensive heart disease and subendocardial ischemia secondary to elevated afterolad. Recent normal stress test.
[2018-08-13] MEDS ORDERED: PT OWN MED DRAWER 7, Y5N ONE ×2 (09:24→15:30)
[2018-08-13] MEDS: NIFEdipine E.R 60 MG TABLET (UD) PO SCH ×2 (10:25→21:21)
[2018-08-13] MEDS: LABETALOL HCL 200 MG TABLET (FP) PO SCH ×2 (10:28→21:21)
[2018-08-13] MEDS: DOXAZOSIN MESYLATE 1 MG TABLET PO SCH ×2 (10:41→18:40)
--- NOTE | 2018-08-13 13:29 | PN ---
Progress Note, Physician History of Present Illness: Pt seen and examined at bedside. He is awake and alert. He denies shortness of breath. - Current Medication List Current Medications: Active Medications Doxazosin Mesylate (Cardura -) 2 mg PO BID@1000,1600 [facility] Last Admin: 08/13/18 10:41 Dose: 2 mg Labetalol HCl (Normodyne -) 300 mg PO BID [facility] Last Admin: 08/13/18 10:28 Dose: 300 mg Nifedipine (Procardia Xl -) 60 mg PO BID [facility] Last Admin: 08/13/18 10:25 Dose: 60 mg Rosuvastatin Calcium (Crestor -) 5 mg PO HS [facility] Last Admin: 08/12/18 21:29 Dose: 5 mg - Objective Vital Signs: Vital Signs Temperature 97.4 F L 08/13/18 08:59 Pulse Rate 56 L 08/13/18 08:59 Respiratory Rate 20 08/13/18 08:59 Blood Pressure 166/111 H 08/13/18 08:59 O2 Sat by Pulse Oximetry (%) 100 08/13/18 09:00 Constitutional: Yes: Calm Eyes: Yes: Conjunctiva Clear HENT: Yes: Atraumatic Neck: Yes: Supple Cardiovascular: Yes: S1, S2 Respiratory: Yes: CTA Bilaterally Gastrointestinal: Yes: Soft Genitourinary: Yes: WNL Musculoskeletal: Yes: WNL Edema: No Neurological: Yes: Oriented Psychiatric: Yes: Oriented Labs: CBC, BMP 08/10/18 06:38 08/13/18 05:30 Problem List - Problems (1) CKD (chronic kidney disease) Code(s): N18.9 - CHRONIC KIDNEY DISEASE, UNSPECIFIED Qualifiers: Chronic kidney disease stage: unspecified stage Qualified Code(s): N18.9 - Chronic kidney disease, unspecified (2) High blood pressure Code(s): I10 - ESSENTIAL (PRIMARY) HYPERTENSION Qualifiers: Hypertension type: unspecified Qualified Code(s): I10 - Essential (primary ) hypertension Assessment/Plan Current Medications Generic Name Dose Route Start Last Admin Trade Name Freq PRN Reason Stop Dose Admin Doxazosin Mesylate 2 mg 08/13/18 10:00 08/13/18 10:41 Cardura - PO 2 mg BID@1000,1600 [facility] Administration Labetalol HCl 300 mg 08/09/18 22:00 08/13/18 10:28 Normodyne - PO 300 mg BID [facility] Administration Nifedipine 60 mg 08/09/18 10:00 08/13/18 10:25 Procardia Xl - PO 60 mg BID [facility] Administration Rosuvastatin Calcium 5 mg 08/11/18 22:00 08/12/18 21:29 Crestor - PO 5 mg HS [facility] Administration Impression 1. CKD 2. raynauds 3. hypertensive urgency 4. non compliance 5. aortic aneurysm Plan - repeat bp after am meds - cont to monitor bp - cardio input appreciated - monitor renal function - will follow
[2018-08-13] MEDS ORDERED: DOXAZOSIN MESYLATE 1 MG TABLET PO SCH (17:41)
[2018-08-13] MEDS ORDERED: DOXAZOSIN MESYLATE 2 MG TABLET (FP) PO ONE (17:42)
[2018-08-13] MEDS: DOXAZOSIN MESYLATE 4 MG TABLET PO SCH (18:45)
[2018-08-13] MEDS: ROSUVASTATIN CA 5 MG TABLET (FP) PO SCH (21:20)
--- NOTE | 2018-08-14 08:58 | PN ---
Progress Note, Physician Chief Complaint: Evening BP elevated Meds adjusted. This AM seen and examined, in no acute distress. Denies CP, SOB, headache. TELE: NSR, chronic NSST changes. - Current Medication List Current Medications: Active Medications Doxazosin Mesylate (Cardura -) 2 mg PO DAILY [facility] Stop: 08/13/18 17:43 Doxazosin Mesylate (Cardura -) 4 mg PO BID@1000,1600 [facility] Last Admin: 08/13/18 18:45 Dose: 4 mg Labetalol HCl (Normodyne -) 300 mg PO BID [facility] Last Admin: 08/13/18 21:21 Dose: 300 mg Nifedipine (Procardia Xl -) 60 mg PO BID [facility] Last Admin: 08/13/18 21:21 Dose: 60 mg Rosuvastatin Calcium (Crestor -) 5 mg PO HS [facility] Last Admin: 08/13/18 21:20 Dose: 5 mg - Objective Vital Signs: Vital Signs Temperature 97.5 F L 08/14/18 06:00 Pulse Rate 68 08/14/18 06:00 Respiratory Rate 18 08/14/18 06:00 Blood Pressure 139/90 08/14/18 06:00 O2 Sat by Pulse Oximetry (%) 100 08/13/18 21:00 Constitutional: Yes: No Distress, Calm Eyes: Yes: Conjunctiva Clear Cardiovascular: Yes: Regular Rate and Rhythm (no murmurs) Respiratory: Yes: CTA Bilaterally (no wheezing or rales.) Gastrointestinal: Yes: Soft (no renal bruits) Edema: No Peripheral Pulses WNL: Yes Neurological: Yes: Alert, Oriented ...Motor Strength: WNL Labs: CBC, BMP 08/10/18 06:38 08/13/18 05:30 Laboratory Tests 08/12/18 08/13/18 05:50 05:30 Sodium 138 138 Potassium 3.6 3.6 BUN 66 H 65 H Creatinine 4.8 H 4.6 H - ....Imaging EKG: Image Reviewed Assessment/Plan IMP: Hypertensive urgency in setting of medication nonadherence- initial rebound effect: overall improved. CKD Abnl ECG Ascending aortic aneursym Possible underlying autoimmune dz REC: 1. Late afternoon spikes in BP last 3 days. Meds titrated. Assess orthostatics today. 2. Renal consult appreciated- Creat remains overall stable. 3. Elevated TnI likely secondary to hypertensive heart disease and subendocardial ischemia secondary to elevated afterolad. Recent normal stress test. No further diagnostic studies planned at this time. 4. Importance of compliance/adherence with meds and with routine office f/u emphasized. 5. Dispo: if no sig orthostatics and evening BP improving plan for possible d/c in AM 08/15--> d/w Dr. Diego
[2018-08-14] MEDS ORDERED: PT OWN MED DRAWER 7, Y5N ONE ×3 (09:04→17:46)
--- NOTE | 2018-08-14 09:19 | PN ---
Progress Note, Physician - Current Medication List Current Medications: Active Medications Doxazosin Mesylate (Cardura -) 2 mg PO DAILY ONE Stop: 08/13/18 17:43 Doxazosin Mesylate (Cardura -) 4 mg PO BID@1000,1600 [facility] Last Admin: 08/13/18 18:45 Dose: 4 mg Labetalol HCl (Normodyne -) 300 mg PO BID [facility] Last Admin: 08/13/18 21:21 Dose: 300 mg Nifedipine (Procardia Xl -) 60 mg PO BID [facility] Last Admin: 08/13/18 21:21 Dose: 60 mg Rosuvastatin Calcium (Crestor -) 5 mg PO HS [facility] Last Admin: 08/13/18 21:20 Dose: 5 mg - Objective Vital Signs: Vital Signs Temperature 97.5 F L 08/14/18 06:00 Pulse Rate 68 08/14/18 06:00 Respiratory Rate 18 08/14/18 06:00 Blood Pressure 139/90 08/14/18 06:00 O2 Sat by Pulse Oximetry (%) 100 08/13/18 21:00 Cardiovascular: Yes: Regular Rate and Rhythm Respiratory: Yes: Regular, CTA Bilaterally Gastrointestinal: Yes: Normal Bowel Sounds, Soft Labs: CBC, BMP 08/10/18 06:38 08/13/18 05:30 Problem List - Problems (1) Uncontrolled hypertension Assessment/Plan: : labetolol and procardia cardura increased to 4 mg bid will monitor BP if it is better today in evening then will dc home Code(s): I10 - ESSENTIAL (PRIMARY) HYPERTENSION (2) CKD (chronic kidney disease) Assessment/Plan: renal on board teja need close follow up as outpatient Code(s): N18.9 - CHRONIC KIDNEY DISEASE, UNSPECIFIED (3) Hyperlipidemia Assessment/Plan: on crestor Code(s): E78.5 - HYPERLIPIDEMIA, UNSPECIFIED (4) Chest pain Assessment/Plan: -resolved -cardio input appreciated Code(s): R07.9 - CHEST PAIN, UNSPECIFIED Qualifiers: Chest pain type: chest pain on breathing Qualified Code(s): R07.1 - Chest pain on breathing
--- NOTE | 2018-08-14 10:30 | PN ---
Progress Note, Physician History of Present Illness: Pt seen and examined at bedside. He is awake and alert. He denies shortness of breath. - Current Medication List Current Medications: Active Medications Doxazosin Mesylate (Cardura -) 2 mg PO DAILY ONE Stop: 08/13/18 17:43 Doxazosin Mesylate (Cardura -) 4 mg PO BID@1000,1600 [facility] Last Admin: 08/13/18 18:45 Dose: 4 mg Labetalol HCl (Normodyne -) 300 mg PO BID [facility] Last Admin: 08/13/18 21:21 Dose: 300 mg Nifedipine (Procardia Xl -) 60 mg PO BID [facility] Last Admin: 08/13/18 21:21 Dose: 60 mg Rosuvastatin Calcium (Crestor -) 5 mg PO HS [facility] Last Admin: 08/13/18 21:20 Dose: 5 mg - Objective Vital Signs: Vital Signs Temperature 97.5 F L 08/14/18 06:00 Pulse Rate 68 08/14/18 06:00 Respiratory Rate 18 08/14/18 06:00 Blood Pressure 139/90 08/14/18 06:00 O2 Sat by Pulse Oximetry (%) 100 08/13/18 21:00 Constitutional: Yes: Calm Eyes: Yes: Conjunctiva Clear HENT: Yes: Atraumatic Neck: Yes: Supple Cardiovascular: Yes: S1, S2 Respiratory: Yes: CTA Bilaterally Gastrointestinal: Yes: Normal Bowel Sounds, Soft Genitourinary: Yes: WNL Musculoskeletal: Yes: WNL Edema: No Neurological: Yes: Oriented Psychiatric: Yes: Oriented Labs: CBC, BMP 08/10/18 06:38 08/13/18 05:30 Problem List - Problems (1) CKD (chronic kidney disease) Code(s): N18.9 - CHRONIC KIDNEY DISEASE, UNSPECIFIED Qualifiers: Chronic kidney disease stage: unspecified stage Qualified Code(s): N18.9 - Chronic kidney disease, unspecified (2) High blood pressure Code(s): I10 - ESSENTIAL (PRIMARY) HYPERTENSION Qualifiers: Hypertension type: unspecified Qualified Code(s): I10 - Essential (primary ) hypertension Assessment/Plan Current Medications Generic Name Dose Route Start Last Admin Trade Name Freq PRN Reason Stop Dose Admin Doxazosin Mesylate 2 mg 08/13/18 17:42 Cardura - PO 08/13/18 17:43 DAILY ONE Doxazosin Mesylate 4 mg 08/13/18 18:00 08/13/18 18:45 Cardura - PO 4 mg BID@1000,1600 TRES Administration Labetalol HCl 300 mg 08/09/18 22:00 08/13/18 21:21 Normodyne - PO 300 mg BID TRES Administration Nifedipine 60 mg 08/09/18 10:00 08/13/18 21:21 Procardia Xl - PO 60 mg BID TRES Administration Rosuvastatin Calcium 5 mg 08/11/18 22:00 08/13/18 21:20 Crestor - PO 5 mg HS TRES Administration Impression 1. CKD 2. raynauds 3. hypertensive urgency 4. non compliance 5. aortic aneurysm Plan - cont to monitor bp - monitor on new med regimen - renal function is advanced but stabilizing - cardiology follow up - discussed with medical team - renal diet - will follow
[2018-08-14] MEDS: LABETALOL HCL 200 MG TABLET (FP) PO SCH ×2 (10:46→21:28)
[2018-08-14] MEDS: NIFEdipine E.R 60 MG TABLET (UD) PO SCH ×2 (10:48→21:28)
[2018-08-14] MEDS: DOXAZOSIN MESYLATE 4 MG TABLET PO SCH (10:49)
[2018-08-14] MEDS: DOXAZOSIN MESYLATE 2 MG TABLET (FP) PO SCH (17:00)
[2018-08-14] MEDS: ROSUVASTATIN CA 5 MG TABLET (FP) PO SCH (21:25)
[2018-08-15 06:30] VITALS: TEMP 98
--- NOTE | 2018-08-15 09:01 | PN ---
Progress Note, Physician Chief Complaint: seen and examined No complaints today Was orthostatic yesterday early afternoon Meds adjusted. Case d/w with Dr. Diego: Doxazosin adjusted, Aldactone added. - Current Medication List Current Medications: Active Medications Doxazosin Mesylate (Cardura -) 2 mg PO BID@1000,1600 [facility] Last Admin: 08/14/18 17:00 Dose: 2 mg Labetalol HCl (Normodyne -) 300 mg PO BID [facility] Last Admin: 08/14/18 21:28 Dose: 300 mg Nifedipine (Procardia Xl -) 60 mg PO BID [facility] Last Admin: 08/14/18 21:28 Dose: 60 mg Rosuvastatin Calcium (Crestor -) 5 mg PO HS [facility] Last Admin: 08/14/18 21:25 Dose: 5 mg Spironolactone (Aldactone -) 25 mg PO DAILY [facility] - Objective Vital Signs: Vital Signs Temperature 98.0 F 08/15/18 06:00 Pulse Rate 73 08/15/18 06:00 Respiratory Rate 18 08/15/18 06:00 Blood Pressure 145/83 08/15/18 06:00 O2 Sat by Pulse Oximetry (%) 100 08/14/18 21:00 Constitutional: Yes: Calm Cardiovascular: Yes: Regular Rate and Rhythm (+ S4) Respiratory: Yes: CTA Bilaterally Gastrointestinal: Yes: Soft (NT) Edema: No Neurological: Yes: Alert Labs: CBC, BMP 08/10/18 06:38 08/13/18 05:30 - ....Imaging EKG: Image Reviewed (NSR) Assessment/Plan IMP: Hypertensive urgency in setting of medication nonadherence- initial rebound effect: overall improved. CKD Abnl ECG Ascending aortic aneursym Possible underlying autoimmune dz REC: Overall, BP is better controlled with remaining challenge of orthostasis. Would re- check orthostatics today. Have advised patient that consultation with HTN specialist at tertiary center would be helpful. Will give contact name/# for several options.
[2018-08-15 09:02] VITALS: BP 142/88; PULSE 80
[2018-08-15] MEDS ORDERED: SPIRONOLACTONE 25 MG TABLET (FP) PO SCH (10:00)
[2018-08-15] MEDS ORDERED: PT OWN MED DRAWER 7, Y5N ONE (10:26)
[2018-08-15] MEDS: LABETALOL HCL 200 MG TABLET (FP) PO SCH (11:29)
[2018-08-15] MEDS: NIFEdipine E.R 60 MG TABLET (UD) PO SCH (11:29)
[2018-08-15] MEDS: DOXAZOSIN MESYLATE 2 MG TABLET (FP) PO SCH (11:29)
--- NOTE | 2018-08-15 12:08 | DS ---
Physical Examination Vital Signs: Vital Signs Temperature 98.0 F 08/15/18 06:00 Pulse Rate 80 08/15/18 09:01 Respiratory Rate 18 08/15/18 09:01 Blood Pressure 142/88 08/15/18 09:01 O2 Sat by Pulse Oximetry (%) 100 08/14/18 21:00 Constitutional: Yes: Calm Cardiovascular: Yes: Regular Rate and Rhythm, S1, S2 Respiratory: Yes: CTA Bilaterally Gastrointestinal: Yes: Normal Bowel Sounds, Soft Edema: No Neurological: Yes: Alert, Oriented Labs: CBC, BMP 08/10/18 06:38 08/13/18 05:30 Discharge Summary Reason For Visit: ACUTE KIDNEY INJURY/HYPERTENSIVE CRISIS Current Active Problems Acute on chronic renal failure (Acute) CKD (chronic kidney disease) (Acute) Dilation of aorta (Acute) High blood pressure (Acute) Hyperlipidemia (Acute) Hypogonadism (Acute) Lupus (systemic lupus erythematosus) (Acute) Thyroid disease (Acute) Uncontrolled hypertension (Acute) Hospital Course: HIEF COMPLAINT: BRADFORD, HTN PCP: Dr. Gutierrez HISTORY OF PRESENT ILLNESS: Overall this is a 27 y/o male with a complex PMH as documented below who presents for BRADFORD and L-flank pain after not taking his home labetalol for several days due to not having it; he has been admitted for HTN emergency here in the past and was seen by CV and nephrology at that time. seen by cardiology doxazosin 2mg bid procardia 60mg bid labetolol 300mg po bid CKD follow by renal as well to follow up with HTN specialist Condition: Stable - Instructions Referrals: Arcadio Gutierrez MD [Primary Care Provider] - 2 Weeks Disposition: HOME - Home Medications Comprehensive Discharge Medication List: Ambulatory Orders Nifedipine [Procardia Xl] 90 mg PO DAILY 03/08/18 Labetalol HCl [Normodyne -] 300 mg PO BID #90 tablet 05/28/18
[2018-08-15 13:19] VITALS: BMI 21.5
== END 2018-08-15 13:07 | disposition home or self-care (01) | DRG 683 ==
LOC: JER 14:16 → JERBED 18:20 → J4W 08-06 14:26
PROVIDERS: ADMIT Family Medicine; ATTEND Family Medicine
DX: N17.9 Acute kidney failure, unspecified (principal); I16.1 Hypertensive emergency; I50.30 Unspecified diastolic (congestive) heart failure; I13.0 Hypertensive heart and chronic kidney disease with heart failure and stage 1 through stage 4 chronic kidney disease, or unspecified chronic kidney disease; N13.30 Unspecified hydronephrosis; N18.4 Chronic kidney disease, stage 4 (severe); E78.5 Hyperlipidemia, unspecified; M32.9 Systemic lupus erythematosus, unspecified; I71.2 Thoracic aortic aneurysm, without rupture; R07.9 Chest pain, unspecified; E07.9 Disorder of thyroid, unspecified; I73.00 Raynaud's syndrome without gangrene; Z91.14 Patient's other noncompliance with medication regimen
CPT/HCPCS: 36415; 71045-TC-FY; 76775-TC; 80048; 80053; 80061; 81003; 81015; 82550; 82553; 83721; 83735; 84100; 84439; 84443; 84484; 85025; 85027; 93005; 93010; 93306-TC; 94010; 99283-25

== ENCOUNTER 2019-08-06 15:50 | Emergency (ER) | payer BC ==
[2019-08-06 16:03] VITALS: BMI 21.3
--- NOTE | 2019-08-06 16:14 | PDOC ---
Attending Attestation - Resident Resident Name: Homer Medeiros - HPI HPI: 08/08/19 09:15 Flulike symptoms for several days. No fever but malaise, fatigue, body aches, nonproductive cough. Taking p.o. foods and fluids well. - Physicial Exam PE: 08/08/19 09:16 Physical exam reveals normal vital signs. Lungs are clear. Cardiac without murmur rub or gallop. Abdomen benign. Wet mucous membranes and skin turgor adequate. No rash. - Medical Decision Making 08/08/19 09:16 Assessment: Flu swab is positive. CBC and chemistries without significant abnormalities. Plan: Symptomatic treatment and close follow-up. Return to ER if symptoms worsen. Fully ambulatory and no significant pain or other distress at discharge.
[2019-08-06] MEDS ORDERED: ACETAMINOPHEN 1000 MG/100 ML VIAL (NON FORMULARY) IVPB ONE (16:32)
[2019-08-06] MEDS ORDERED: ACETAMINOPHEN INJECTION 100 ML IVPB ONE (16:41)
[2019-08-06 17:02] LABS: BASO % 4.1 % (0-2.0); EOS % 4.7 % (0-4.5); HEMATOCRIT 41.8 % (35.4-49); LYMPH % 8.5 % (8-40); MCH 31.2 pg (25.7-33.7); MCHC 33.6 g/dl (32.0-35.9); MEAN CELL VOLUME 93.1 fl (80-96); MEAN PLT VOLUME 10.4 fl (7.5-11.1); MONO % 12.6 % (3.8-10.2); NEUT % 70.1 % (42.8-82.8); PLATELET COUNT 182 K/MM3 (134-434); RBC 4.49 M/mm3 (4.00-5.60); RDW 11.8 % (11.9-15.9); WHITE BLOOD COUNT 5.6 K/mm3 (4.0-10.8)
[2019-08-06 17:20] LABS: ALBUMIN 4.4 g/dl (3.4-5.0); BILIRUBIN,TOTAL 0.7 mg/dl (0.2-1); CREATININE 4.1 mg/dl (0.55-1.3); POTASSIUM 3.1 mmol/L (3.5-5.1); TOT PROT 7.6 g/dl (6.4-8.2)
[2019-08-06 18:30] VITALS: BP 128/90; PULSE 76; TEMP 98.7
[2019-08-06] MEDS ORDERED: POTASSIUM CHLORIDE ORAL LIQUID 20 MEQ/15 ML PO ONE ×2 (18:30→18:58)
--- NOTE | 2019-08-06 18:30 | PDOC ---
History of Present Illness - General Chief Complaint: Cold Symptoms Stated Complaint: COUGH Time Seen by Provider: 08/06/19 16:14 History Source: Patient Exam Limitations: No Limitations Past History - Past Medical History Allergies/Adverse Reactions: Allergies Allergy/AdvReac Type Severity Reaction Status Date / Time banana Allergy Severe Verified 08/06/19 16:04 Home Medications: Ambulatory Orders Labetalol HCl [Normodyne -] 300 mg PO BID #30 tablet MDD 2 08/15/18 Nifedipine ER [Procardia XL -] 60 mg PO BID #30 tab.er.24 MDD 2 08/15/18 Chlorthalidone 25 mg PO DAILY 08/06/19 Doxazosin Mesylate [Cardura -] 2 mg PO DAILY MDD 1 08/06/19 Oseltamivir Phosphate [Tamiflu -] 75 mg PO BID #10 capsule 08/06/19 COPD: No CHF: No DVT: No Disorders: Yes (ckd) HTN: Yes Other medical history: HTN - Psycho Social/Smoking Cessation Hx Smoking Status: No Smoking History: Never smoked Have you smoked in the past 12 months: No Number of Cigarettes Smoked Daily: 3 'Breaking Loose' booklet given: 08/06/18 Hx Alcohol Use: No Drug/Substance Use Hx: Yes (weed) Substance Use Type: None Hx Substance Use Treatment: No *Physical Exam - Vital Signs Last Vital Signs Temp Pulse Resp BP Pulse Ox 98.7 F 76 18 128/90 999 H 08/06/19 18:29 08/06/19 18:29 08/06/19 18:29 08/06/19 18:29 08/06/19 18:29 ED Treatment Course - LABORATORY CBC & Chemistry Diagram: 08/06/19 16:45 08/06/19 16:45 - ADDITIONAL ORDERS Additional order review: Laboratory Results 08/06/19 08/06/19 16:45 16:35 Sodium 136 Potassium 3.1 L Chloride 102 Carbon Dioxide 24 Anion Gap 10 BUN 34.0 H Creatinine 4.1 H Est GFR (CKD-EPI)AfAm 21.62 Est GFR (CKD-EPI)NonAf 18.65 Random Glucose 90 Calcium 9.0 Total Bilirubin 0.7 AST 15 ALT 11 L Alkaline Phosphatase 77 Troponin I 0.03 Total Protein 7.6 Albumin 4.4 08/06/19 16:45 RBC 4.49 MCV 93.1 MCHC 33.6 RDW 11.8 L MPV 10.4 D Neutrophils % 70.1 Lymphocytes % 8.5 D Monocytes % 12.6 H Eosinophils % 4.7 H Basophils % 4.1 H D - RADIOLOGY Radiology Studies Ordered: Category Date Time Status CHEST PA & LAT [RAD] Stat Radiology 08/06/19 16:32 Completed - Medications Given in the ED: ED Medications Discontinued Medications Generic Name Dose Route Start Last Admin Trade Name Freq PRN Reason Stop Dose Admin Acetaminophen 1,000 mg 08/06/19 16:32 08/06/19 16:48 Ofirmev Injection - IVPB 08/06/19 16:33 1,000 mg ONCE ONE Administration Discharge - Discharge Information Problems reviewed: Yes Clinical Impression/Diagnosis: Influenza A Condition: Stable Disposition: HOME - Additional Discharge Information Prescriptions: Oseltamivir Phosphate [Tamiflu -] 75 mg PO BID #10 capsule - Follow up/Referral Referrals: Casey Wilson MD [Staff Physician] - Arcadio Gutierrez MD [Staff Physician] - - Patient Discharge Instructions Patient Printed Discharge Instructions: How to Avoid a Cold or Flu, DI for Influenza -- Adult Additional Instructions: you were seen for your SOB and myalgias. Please take the medication as prescribed. please follow up with your primary physician within 1 week after discharge for follow up care and management. please return to the emergency department if you have worsening symptoms or new concerning symptoms. thank you. - Post Discharge Activity Work/Back to School Note: Back to Work
[2019-08-06] MEDS ORDERED: POTASSIUM CHLORIDE ORAL LIQUID 20 MEQ/15 ML ONE ×2 (18:38→19:02)
[2019-08-06] MEDS ORDERED: OSELTAMIVIR PHOSPHATE 75 MG CAPSULE PO ONE (19:05)
[2019-08-06] MEDS ORDERED: OSELTAMIVIR PHOSPHATE 75 MG CAPSULE ONE (19:08)
--- NOTE | 2019-08-08 13:12 | EKG ---
Test Reason : Blood Pressure : / mmHG Vent. Rate : 079 BPM Atrial Rate : 079 BPM P-R Int : 148 ms QRS Dur : 098 ms QT Int : 462 ms P-R-T Axes : 048 060 -52 degrees QTc Int : 529 ms NORMAL SINUS RHYTHM VOLTAGE CRITERIA FOR LEFT VENTRICULAR HYPERTROPHY NONSPECIFIC ST ABNORMALITY PROLONGED QT ABNORMAL ECG WHEN COMPARED WITH ECG OF 11-AUG-2018 13:42, NO SIGNIFICANT CHANGE WAS FOUND Confirmed by DEYANIRA COPPOLA MD ([id number]) on 08/08/2019 1:12:11 PM Referred By: MD YE Confirmed By:DEYANIRA COPPOLA MD
== END 2019-08-06 19:23 | disposition home or self-care (01) ==
LOC: SUPCPDRO 15:50 → FER 15:50
PROC: 3E033NZ Introduction of Analgesics, Hypnotics, Sedatives into Peripheral Vein, Percutaneous Approach (ICD-10-PCS; principal; 2019-08-06)
DX: J09.X2 Influenza due to identified novel influenza A virus with other respiratory manifestations (principal); Z91.018 Allergy to other foods; I10 Essential (primary) hypertension; I12.9 Hypertensive chronic kidney disease with stage 1 through stage 4 chronic kidney disease, or unspecified chronic kidney disease; N18.9 Chronic kidney disease, unspecified
CPT/HCPCS: 36415; 71046-TC-FY; 80053; 84484; 85025; 87804; 93005; 99283-25; J0131

== ENCOUNTER 2021-02-23 04:10 | Day surgery (SDC) | payer OTHER ==
[2021-02-22 09:44] VITALS: BMI 21.9
[2021-02-23] MEDS ORDERED: HEPARIN NA (PORCINE) 5,000 UNITS/ML 1ML VIAL ONE ×2 (07:10→07:18)
[2021-02-23] MEDS ORDERED: LIDOCAINE HCL 1%, 10 MG/ML (20ML VIAL) ONE (07:10)
[2021-02-23] MEDS ORDERED: POVIDONE-IODINE OINTMENT 10% - 28.4 GM TUBE ONE ×2 (07:10→07:18)
[2021-02-23] MEDS ORDERED: PAPAVERINE HCL 30 MG/1 ML 10 ML VIAL NR ONE (07:18)
[2021-02-23] MEDS ORDERED: DEXMEDETOMIDINE HCL 200 MCG/2 ML IVPB ONE (07:37)
[2021-02-23] MEDS ORDERED: PROPOFOL 20 ML ONE ×4 (07:41→08:39)
[2021-02-23] MEDS ORDERED: MIDAZOLAM HCL 2 MG/2 ML SINGLE DOSE VIAL ONE (07:42)
[2021-02-23] MEDS ORDERED: LIDOCAINE HCL/PF 2% SDV 5ML VIAL ONE (07:43)
[2021-02-23] MEDS ORDERED: SEVOFLURANE 250 ML BTL ONE (07:47)
[2021-02-23] MEDS ORDERED: LIDOCAINE HCL 1%, 10 MG/ML (20ML VIAL) NR ONE (08:30)
[2021-02-23] MEDS ORDERED: POVIDONE-IODINE OINTMENT 10% - 28.4 GM TUBE TP ONE (08:40)
[2021-02-23] MEDS ORDERED: ONDANSETRON 4 MG/2 ML VIAL IVPUSH PRN (09:44)
[2021-02-23] MEDS ORDERED: ACETAMINOPHEN 325 MG TABLET (FP) PO PRN (09:45)
[2021-02-23] MEDS ORDERED: LACTATED RINGERS SOLUTION 1,000 ML IV SCH (09:45)
[2021-02-23] MEDS ORDERED: oxyCODONE HCL 5 MG TABLET PO PRN (09:45)
[2021-02-23 11:37] VITALS: BP 136/93; PULSE 56; TEMP 98
== END 2021-02-23 11:40 | disposition home or self-care (01) ==
LOC: JASU-SURG 04:10
PROVIDERS: ATTEND Surgery
PROC: 031C3ZF Bypass Left Radial Artery to Lower Arm Vein, Percutaneous Approach (ICD-10-PCS; principal; 2021-02-23 08:00)
DX: I12.0 Hypertensive chronic kidney disease with stage 5 chronic kidney disease or end stage renal disease (principal); N18.6 End stage renal disease
CPT/HCPCS: 86850; 86900; 86901; 94760; J1644

== ENCOUNTER 2023-07-06 18:13 | Emergency (ER) | payer OTHER ==
[2023-07-06 18:36] VITALS: BP 151/99; PULSE 97; RESP 18; TEMP 97.8; BMI 21.9
== END 2023-07-06 22:58 | disposition home or self-care (01) ==
LOC: JER 18:13
DX: T82.848A Pain due to vascular prosthetic devices, implants and grafts, initial encounter (principal); M79.602 Pain in left arm; I12.0 Hypertensive chronic kidney disease with stage 5 chronic kidney disease or end stage renal disease; N18.6 End stage renal disease; Y83.1 Surgical operation with implant of artificial internal device as the cause of abnormal reaction of the patient, or of later complication, without mention of misadventure at the time of the procedure; Z99.2 Dependence on renal dialysis
CPT/HCPCS: 99282-25